=== PATIENT | female | born 1995 | race African-American/Black ===

== ENCOUNTER 2024-08-21 10:17 | Outpatient (CLI) | payer OTHER, SELFPAY ==
--- OUTSIDE RECORDS SUMMARY | 2024-08-21 10:25 | XMS_ITS | Continuity of Care Document ---
Author Organization [facility] Address [address] [place] [address] Assessment Encounter Date Assessment Date Assessment LastModified by Organization Details LastModified Time 08/21/2024 08/21/2024 Patient is _34__weeks . Discussed plan. Not available 08/21/2024 11:05:28 Plan of Treatment Reminders Order Date Submit Date Provider Last Modified By Organization Details Last Modified Time Details Appointments NST 2024 09:00A M NST SCHEDULE Not available Not available Not available OB ROUTINE 2024 09:30A M ALINA NortonM Not available Not available Not available NST 2024 09:30A M NST SCHEDULE Not available Not available Not available OB ROUTINE 2024 10:15A M ALINA NortonM Not available Not available Not available NST 2024 09:00A M NST SCHEDULE Not available Not available Not available OB ROUTINE 2024 09:30A M Raya Sanabria CNM Not available Not available Not available NST 2024 09:00A M NST SCHEDULE Not available Not available Not available OB ROUTINE 2024 09:30A M Raya Sanabria CNM Not available Not available Not available NST 2024 09:30A M NST SCHEDULE Not available Not available Not available OB ROUTINE 2024 10:15A M Raya Sanabria CNM Not available Not available Not available Lab None recorded . Referral None recorded . Procedures None recorded . Surgeries None recorded . Imaging None recorded . Medication Orders None recorded . Patient TargetsNo targets recorded. Patient InstructionsNo instructions recorded. Reason for Referral None Reported. Results Created Date Observation Date Name Description Value Unit Range Abnormal Flag Note LastModifiedBy Organization Detail LastModifiedTime 06/05/19 25 06/04/2024 US, obste tric, follo w-up No observ ation record ed. [email or web address] [address], [place], [address], 06/09/2024 15:00:52 06/05/19 25 06/04/2024 US, obste tric, 2nd or 3rd trime ster No observ ation record ed. [email or web address] [facility] [address], [place], [address], 06/04/2024 15:32:13 06/19/19 25 06/18/2024 US, obste tric, limit ed No observ ation record ed. [email or web address] [facility] [address], [place], [address], 06/18/2024 16:31:33 06/19/19 25 06/18/2024 US, obste tric, limit ed No observ ation record ed. [email or web address] [address], [place], [address], 06/19/2024 16:59:43 07/23/19 25 07/22/2024 US, obste tric, follo w-up No observ ation record ed. [email or web address] [facility] [address] [place], [address], 07/27/2024 22:58:59 07/23/19 25 07/22/2024 US, obste tric, follo w-up No observ ation record ed. [email or web address] [facility] [address] [place], [address], 07/27/2024 23:04:26 08/15/19 25 08/14/2024 non-s tress test No observ ation record ed. [email or web address] [facility] [address], [place], [address], 08/14/2024 19:49:02 08/15/19 25 08/14/2024 non-s tress test No observ ation record ed. [email or web address] [facility] [address], [place], [address], 08/14/2024 19:51:03 Result Notes None recorded. Problems Name Problem SNOMED Code Status Onset Date Resolution Date Notes Provider Name and Address Organization Details Recorded Time Pregnanc y 26396117 Active 2024 Maty carbone, [facility] 5 13:04:05 Deliveri es by 330779241 Active wants tolac, has had successfu l Oleg Magdaleno MD [address], [place], [address], [facility] 5 16:53:21 Vaginal delivery followin g previous section 317994640 Active SECOND - 28 weeks - 2# 10ozc Oleg Magdaleno MD [address], [place], [address], [facility] 5 13:41:19 Prematur e delivery 347794593 Active PLACENTAL ABRUPTION Oleg Magdaleno MD [address], [place], [address], [facility] 5 13:33:04 Pre-ecla mpsia 841213744 Active SEVERE scheduled 07/22 Level II US and consult Wendy carbone, [facility] 5 18:20:28 Placenta l abruptio n 553268711 Active Oleg Magdaleno MD [address], [place], [address], [facility] 5 13:34:13 Bleeding 953109382 Active VAGINAL BLEEDING AT THE TIME OF ABRUTION Oleg Magdaleno MD [address], [place], [address], [facility] 5 13:35:26 Chlamydi al infectio n 573068851 Active Iwona Cobb [facility], [facility] 5 16:05:46 Infectio n by Trichomo melinda 23795575 Active Iwona Cobb [facility], [facility] 5 16:06:25 Placenta l finding 890277532 Active mildy complex focus within Placenta - [facility] referral faxed scheduled 07/22 1:00PM Level II US and consult MFM DID NOT FIND ANY PROBLEM WITH THE PLACENTA. Oleg Magdaleno MD [address], [place], [address], [facility] 5 12:11:40 Anemia 324288713 Active slo fe daily Wendy Green [facility], [facility] 5 11:47:56 Anemia 034700521 Active slo fe daily Wendy Green [facility], [facility] 5 11:47:56 Herpes simplex 19299038 Active 2024 Iwona Cobb [facility], [facility] 5 11:33:31 History of chlamydi al infectio n 955678867 Active 202406/04/2024 chlamydia Iwona Cobb [facility], [facility] 5 11:33:55 Past pregnanc y history of prematur e delivery 082322221 Active 2024 Iwona carbone, [facility] 5 11:37:28 Past pregnanc y history of pre-ecla mpsia 53062743212 9100 Active 2024 Iwona carbone [facility] 5 11:37:41 Problem Notes None recorded. Procedures Surgical History Date Name Laterality Status Provider Name and Address Organization Details Recorded Time 4 Date of Last Pap Smear completed [facility] 06/04/2024 13:08:26 7 Caesarean Section completed [facility] 06/04/2024 13:13:56 Imaging Results None recorded. Procedure Notes None recorded. Medical Equipment None Reported. Allergies No known drug allergies Medications Name Sig Start Date Stop Date Status Note LastModified by Organization Details LastModified Time metronidazo le 500 mg tablet Take 1 tablet every 12 hours by oral route for 7 days. 06/18 completed Not Available Not Available Not Available valacyclovi r 500 mg tablet TAKE 2 TABLETS BY MOUTH EVERY 12 HOURS active Not Available Not Available No t Available promethazin e 25 mg tablet TAKE 1 TABLET BY MOUTH EVERY 4-6 HOURS NEEDED FOR NAUSEA 06/04 completed Not Available Not Available Not Available ibuprofen 600 mg tablet TAKE 1 TABLET BY MOUTH EVERY 6 HOURS NEEDED FOR PAIN 06/04 completed Not Available Not Available Not Available metoclopram marcos 10 mg tablet TAKE 1 TABLET BY MOUTH EVERY 6 HOURS NEEDED FOR NAUSEA OR VOMITING 06/04 completed Not Available Not Available Not Available azithromyci n 500 mg tablet take 2 tablets today 06/18 completed Not Available Not Available Not Available nitrofurant oin monohydrate /macrocryst als 100 mg capsule TAKE 1 CAPSULE BY MOUTH TWICE DAILY FOR 5 DAYS 06/04 completed Not Available Not Available Not Available Vitals Date Recorded Body height Body mass index (BMI) Body weight Systolic blood pressure Diastolic blood pressure Systolic blood pressure Diastolic blood pressure Provider Name and Address Organization Details Last Updated DateTime 5 170.18 cm 24 kg/m2 96602.6 3 g 152 mm[Hg] 107 mm[Hg] 150 mm[Hg] 100 mm[Hg] Iwona Cobb [facility] 10:58:57 Social History Question Answer Notes LastModified by Organizat ion Details LastModified Time Tobacco Smoking Status Current Every Day Smoker Maty Miller raf, [facility] 06/04/2024 13:12:01 If You Are , What Was Your Level Of Alcohol Consumption Prior To ? Occasional [email or web address] Information not available 08/14/2024 Are You Blind Or Do You Have Difficulty Seeing? No Information not available 06/04/2024 What Is Your Level Of Caffeine Consumption? None Information not available 06/04/2024 In The 14 Days Before Symptom Onset, Have You Had Close Contact With A Laboratory-confir med COVID-19 While That Case Was Ill? No Information not available 06/04/2024 In The 14 Days Before Symptom Onset, Have You Had Close Contact With A Person Who Is Under Investigation For COVID-19 While That Person Was Ill? No Information not available 06/04/2024 Have You Been To An Area Known To Be High Risk For COVID-19? No Information not available 06/04/2024 Are You Deaf Or Do You Have Serious Difficulty Hearing? No Information not available 06/04/2024 What Type Of Diet Are You Following? REGULAR Information not available 06/04/2024 What Is The Highest Grade Or Level Of School You Have Completed Or The Highest Degree You Have Received? [id number] Information not available 06/04/2024 Are There Any Guns Present In Your Home? No Information not available 06/04/2024 Do You Use Your Seat Belt Or Car Seat Routinely? Yes Information not available 06/04/2024 Are You Sexually Active? Yes Information not available 06/04/2024 Do You Have Smoke And Carbon Monoxide Detectors In Your Home? Yes Information not available 06/04/2024 Do You Use Sunscreen Routinely? No Information not available 06/04/2024 Do You Have Difficulty Walking Or Climbing Stairs? No Information not available 06/04/2024 Sex: Unknown Functional Status Question Answer Note LastModified by Organizat ion Details LastModified Time Do you use any illicit or recreational drugs? Yes marijuana Information not available 06/04/2024 What is your level of alcohol consumption? None Information not available 06/04/2024 Are you currently employed? Yes Information not available 06/04/2024 Are you able to walk? YESWOREST Information not available 06/04/2024 Are you able to care for yourself? 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 No Information not available 06/04/2024 What is your exercise level? Moderate Information not available 06/04/2024 Mental Status Question Answer Note LastModified by Organization D etails LastModified Time Do you feel stressed (tense, restless, nervous, or anxious, or unable to sleep at night)? [id number] Information not available 06/04/2024 Family History Relationship Description Onset Age of this Age Resolved Age Notes LastModified by Organization Details LastModified Time Father No current problems or disability Not available 06/04 13:11:42 Mother No current problems or disability Not available 06/04 13:11:42 Medical History Condition Response Allergies (Food, seasonal, environmental ) N Other Y Breast Cancer N Drug/Latex Allergies/Reactions N Blood Transfusion N Dermatologic Disorders N Lung Disease N Defects or Inherited Disease N Breast Problem N Gestational Diabetes N Hematologic disorders N Anesthesia Complications N History of STI Y Deep Vein Thrombosis N Polycystic ovary syndrome N Anxiety Disorder N Autoimmune disease N Arthritis N Infertility N Polyps N Acid Reflux (GERD) N History of abnormal pap N Cancer N Stroke N Varicosities N Neurologic/Epilepsy N Endometriosis N High Cholesterol N Headaches N Fibromyalgia N Kidney Disease N Heart Problems N Kidney or Bladder Problems N Thyroid Problems N GI Problems N Eating Disorder N Anemia Y Art (IVF or FET) N Psychiatric Illness N Ovarian Cancer N Diabetes N Pulmonary (TB, Asthma) N Hepatitis/Liver Disease N No Past Medical History N Eczema N Urinary Tract Infection N Abuse/Domestic Violence N Asthma N Trauma/Violence N Depression/ depression N Heart Disease N Pre-Eclampsia Y Hypertension N Osteoporosis N Thrombophilias N Gynecological History Statement/Question Response Abnormal Pap N Date of Last Mammogram Flow Moderate Date of LMP On BCP's at Conception? Y Was last menstrual period normal Y STIs/STDs Yes Duration of Flow (days) 3 Current Control Method Age at First Child 21 Are cycles usually normal Y Date of Last Colonoscopy Frequency of Cycle (Q days) 28 Sexually Active? Y Menses Monthly Y Date of DEXA bone scan Age of first menstrual cycle 17 Date of Last Pap Smear 04/01/2023 Sexual Problems? N LMP Unknown Obstetrics History GPAL:G 3 P 1 1 0 2 Type Value Full Term 1 Premature 1 Living 2 Total 3 Past Encounters Encounter ID Performer Location Encounter Start Date Encounter Closed Date Diagnosis/Indication Diagnosis SNOMED-CT Code Diagnosis ICD10 Code Diagnosis Note [id number] Oleg Magdaleno MD [facility] [address] [address] 07/23/2024 10:56:14 07/23/2024 12:25:22 care status 473982111 Z34.83 [id number] Raya Sanabria [facility] [address] [place] [address] 08/14/2024 11:17:07 08/14/2024 12:36:29 Gestation period, 33 weeks 18098210 Z3A.33 cont pnv Past pregn steve history of pre-eclampsia 9851019014 37895 O09.299 [id number] [facility] [address] [place] [address] 08/14/2024 19:46:30 08/15/2024 11:16:58 Past history of premature delivery 102639488 Z87.51 [id number] Raya Sanabria [facility] [address] [place] [address] 08/21/2024 10:21:56 08/21/2024 11:24:02 Gestation period, 34 weeks 25072407 Z3A.34 Increased blood pressure 06312495 R03.0 Health Concerns Section Related Observation LastModified by Organization Detai ls LastModified Time None Recorded Concern Status LastModified by Organization Details LastModified Time None Recorded Payers Encounter Date Sequence Insurance Name Policy Number Policy Carlson Covered Member ID Carlson Member ID Guarantor Name 08/21/2024 1 [facility] - DOS ON OR AFTER 20 (MEDICAID REPLACEMENT - HMO) Esdras Saucedo [id number] Esdras Saucedo OBGyn Episode Ob Episode Information Episode Created Date Number of Fetuses Patient Bloodtype Patient rh Status Prepregnancy Weight lbs Domestic Partner Domestic Partner Phone Father Name Shower Room Attendant Status 06/05/19 25 1 O Positive Javi OPEN Fetus Data First Name Last Name Admitted to NICU Weight (g) Sex Living Outcome Pediatric Complications Fetus ID Race Codes Race Delivery Type [id number] Problems Problem Notes pt scheduled [facility] 08/25/24 0900 Level II US Problem Name Start Date End Date Resolution Snomed Code Not e Bleeding 982339727 VAGINAL BL EEDING AT THE TIME OF ABRUTION Placental abruption 955238960 Deliveries by 04 wants tolac, has had successful Anemia 854170293 slo fe goran ly Placental finding [phone] mi ldy complex focus within Placenta - [facility] referral faxed scheduled 07/22 1:00PM Level II US and consult MFM DID NOT FIND ANY PROBLEM WITH THE PLACENTA. Pre-eclampsia 983497468 SEVERE scheduled 07/22 Level II US and consult Chlamydial infection 843437279 Infection by Trichomonas [id number] Premature delivery 925696709 P LACENTAL ABRUPTION Vaginal delivery following previous section 088307451 SECOND PREG MANDI - 28 weeks - 2# 10ozc Luis Daniel Calculation Initial Luis Daniel Date Initial Exam Date Initial Exam Provider Initial Ultrasound Date Last Menstrual Period Date Ultra Sound Weeks Gestation 06/04/2024 06/04/2024 23 Eighteen To Twenty Week Luis Daniel Update Ultra Sound Date Fundal Height At Umbil Quickening Date Ultra Sound Latest Weeks Gestation Final Luis Daniel Confirmed By Final Luis Daniel Confirmed Date Final Luis Daniel Date Ultra Sound Latest Days Gestation 06/05/19 25 23 [email or web address] 06/04/2024 10/02/19 25 0 Pre-bryanna Flowsheet Flowsheet Date 06/04/2024 Lorenz Score Blood Edema Fundus Height Fundus Units Glucose Ketones Leukocytes Nitrite Labor Signs Protein Cervic Dilation Cervic Effacement Cervic Station Type Weight in lbs Pre/Post Dialysis Refused BP Diastolic BP Location Tested BP Systolic BP Type Fetus Heart Rate Present Fetus Movement Comments Flowsheet Date 06/04/2024 Lorenz Score Blood Edema Fundus Height Fundus Units Glucose Ketones Leukocytes Nitrite Labor Signs Protein Cervic Dilation Cervic Effacement Cervic Station Type Weight in lbs Pre/Post Dialysis Refused 136.225306129978 BP Diastolic BP Location Tested BP Systolic BP Type 74 L arm 113 sitting Fetus Heart Rate Present Fetus Movement Comments this patient is a 28-year-ol d multiparous female at 23 weeks' gestation who presents for initial care. Her medical, surgical history is unremarkable. she has a complex obstetric history with delivery associated with preeclampsia and abruption . she has history of delivery. She is vaccinated. She was given precautions recommendations for . We talked about vaccines in . Talked about care in detail. She is having genetic testing. To begin routine care. Flowsheet Date 06/18/2024 Lorenz Score Blood Edema Fundus Height Fundus Units Glucose Ketones Leukocytes Nitrite Labor Signs Protein Cervic Dilation Cervic Effacement Cervic Station Type Weight in lbs Pre/Post Dialysis Refused BP Diastolic BP Location Tested BP Systolic BP Type Fetus Heart Rate Present Fetus Movement Comments Flowsheet Date 06/18/2024 Lorenz Score Blood Edema Fundus Height Fundus Units Glucose Ketones Leukocytes Nitrite Labor Signs Protein Cervic Dilation Cervic Effacement Cervic Station Type Weight in lbs Pre/Post Dialysis Refused 133.191676152198 BP Diastolic BP Location Tested BP Systolic BP Type 78 L arm 112 sitting Fetus Heart Rate Present A 145 Fetus Movement A Yes Comments no complaints, no problems, routine care, no contractions, no vaginal bleeding, no loss of fluid, no cramping Flowsheet Date 07/09/2024 Lorenz Score Blood Edema Fundus Height Fundus Units Glucose Ketones Leukocytes Nitrite Labor Signs Protein Cervic Dilation Cervic Effacement Cervic Station Type Weight in lbs Pre/Post Dialysis Refused 138.711781453552 BP Diastolic BP Location Tested BP Systolic BP Type 71 L arm 109 sitting Fetus Heart Rate Present A 150 Present Fetus Movement A Yes Comments no complaints, no problems, routine care, no contractions, no vaginal bleeding, no loss of fluid, no cramping Flowsheet Date 07/23/2024 Lorenz Score Blood Edema Fundus Height Fundus Units Glucose Ketones Leukocytes Nitrite Labor Signs Protein Cervic Dilation Cervic Effacement Cervic Station Type Weight in lbs Pre/Post Dialysis Refused 143.224614859513 BP Diastolic BP Location Tested BP Systolic BP Type 77 L arm 116 sitting Fetus Heart Rate Present A 145 Present Fetus Movement A Yes Comments no complaints, no problems, routine care, no contractions, no vaginal bleeding, no loss of fluid, no cramping MFM DID NOT FIND PROBLEMS WITH THE PLACENTA, NORMAL GROWTH Flowsheet Date 08/14/2024 Lorenz Score Blood Edema Fundus Height Fundus Units Glucose Ketones Leukocytes Nitrite Labor Signs Protein Cervic Dilation Cervic Effacement Cervic Station neg none Type Weight in lbs Pre/Post Dialysis Refused Weight 147.320020201061 BP Diastolic BP Location Tested BP Systolic BP Type 85 129 Fetus Heart Rate Present Fetus Movement A Yes Comments Patient is having some pain, discharge, nausea and vomiting. testing today NST R, +FM doing well, no complaints, call for preadmission. f/u one week. precautions reviewed Flowsheet Date 08/14/2024 Lorenz Score Blood Edema Fundus Height Fundus Units Glucose Ketones Leukocytes Nitrite Labor Signs Protein Cervic Dilation Cervic Effacement Cervic Station Type Weight in lbs Pre/Post Dialysis Refused Weight 147.278631126763 BP Diastolic BP Location Tested BP Systolic BP Type 85 129 Fetus Heart Rate Present Fetus Movement Comments Flowsheet Date 08/21/2024 Lorenz Score Blood Edema Fundus Height Fundus Units Glucose Ketones Leukocytes Nitrite Labor Signs Protein Cervic Dilation Cervic Effacement Cervic Station Type Weight in lbs Pre/Post Dialysis Refused BP Diastolic BP Location Tested BP Systolic BP Type Fetus Heart Rate Present Fetus Movement Comments Flowsheet Date 08/21/2024 Lorenz Score Blood Edema Fundus Height Fundus Units Glucose Ketones Leukocytes Nitrite Labor Signs Protein Cervic Dilation Cervic Effacement Cervic Station neg none Type Weight in lbs Pre/Post Dialysis Refused Weight 153.391540990621 BP Diastolic BP Location Tested BP Systolic BP Type 107 152 100 150 Fetus Heart Rate Present Fetus Movement A Yes Comments Patient is having some disch arge, nausea and vomiting. denies conley, visual changes, epigastric pain, plan evaluation at ld, NST R Menstrual History Last Menstrual Date Menses Monthly On Bcp Conception Prior Menses Frequency Hcg Plus Date Menarche Onset Age true Delivery Information Delivery Date Delivery Type Labor Anesthesia Weeks Gestation Incision Type Labor Labor Length Hrs Delivered By Post Complications Tubal Sterilization Discharge Date Comments Discharge Information Feeding Method Contraceptive Method Maternal HG B and HCT Levels
--- OUTSIDE RECORDS SUMMARY | 2024-08-21 10:26 | XMS_ITS | Data Portability ---
Author Organization [facility] MELIT[facility] Address [address] [place] [address] Care Team Providers Care Laundry Press Operator Name Role Phone KRISTY MUNGUIA Glass Designer Unavailable Assessment Encounter Date Assessment Date Assessment LastModified by Organization Details LastModified Time 05/10/2022 05/10/2022 26 yo @ 29+1 wks by LMP = 8wk US here for JOSE L. (LUIS DANIEL 07/25/2022) mmetias Not available 05/10/2022 11:24:34 Plan of Treatment Reminders Order Date Submit Date Provider Last Modified By Organization Details Last Modified Time Details Appointments None record ed. Lab pregna ncy test, urine 2024 025 [email or web address] In-Office Order, Internal Use Only DO Not Attach Compendium DO Not Attach Compendium, Do Not Delete/merge, [id number] 5 16:31:26 HCG, intact + beta subuni t, quant, serum or plasma 2024 025 [email or web address] [facility], [address] [place] [address], [address], [place], [address], 17:30:29 pregna ncy test, urine 2022 023 [email or web address] In-Office Order, Internal Use Only DO Not Attach Compendium DO Not Attach Compendium, Do Not Delete/merge, [id number] 3 08:47:22 CMP, serum or plasma 2022 023 [facility], [address] [place] [address] [address], [address], [place], [address], 3 10:55:46 lactat e dehydr ogenas e, QN, lactat e to pyruva te reacti on, serum or plasma 2022 023 [facility], [address], [address], [place], [address], 3 10:55:46 uric acid, serum or plasma 2022 023 [facility], [address], [address], [place], [address], 3 10:55:46 CBC w/ auto diff 2022 023 [email or web address] [facility], [address] [facility] [address], [address], [place], [address], 3 10:17:21 protei n + creati nine panel, urine 2022 023 [facility], [address], [address], [place], [address], 3 10:55:45 PT/PTT , plasma 2022 023 [facility], [address], [address], [place], [address], 3 11:01:10 pregna ncy test, urine 2022 023 [facility] In-Office Order, Internal Use Only DO Not Attach Compendium DO Not Attach Compendium, Do Not Delete/merge, [id number] 3 10:01:57 urinal ysis, dipsti ck 2022 023 [email or web address] In-Office Order, Internal Use Only DO Not Attach Compendium DO Not Attach Compendium, Do Not Delete/merge, [id number] 3 10:30:15 HIV 1 + 2, meanin gful use set 2022 023 [facility], [address] [facility], [address], [place], [address], 3 09:15:18 RPR (rapid plasma reagin ), serum 2022 023 [facility], [address] [facility], [address], [place], [address], 3 09:15:17 CBC w/ auto diff 2022 023 [facility], [address] [place] [address], [address], [place], [address], 3 20:08:38 glucos e tolera nce test, post-5 0G, 1-hour 2022 023 [facility], [address] [place], [place] [address]stacy [address], [address], [place], [address], 3 09:15:16 Referral matern al & medici ne referr al - Total Transf er of care, Histor y of Pre-C and C-sect ion at 31 weeks in G1, Desire s TOLAC 2022 023 [facility], [address], [address], [place], [address], 3 11:53:25 Procedures None record ed. Surgeries None record ed. Imaging None record ed. Medication Orders medrox yproge steron e 150 mg/mL intram uscula r suspen kalpesh 2022 023 [id number], [address] [place], [place], [id number], 5 15:58:23 nifedi pine ER 30 mg tablet ,exten ded releas e 2022 023 [facility], [address] [place] [address], [id number], 3 11:00:47 medrox yproge steron e 150 mg/mL intram uscula r suspen kalpesh 2022 023 [email or web address], [address] [place] [address], [id number], 5 15:58:23 Adult Low Dose Aspiri n 81 mg tablet ,delay ed releas e 2022 023 [id number], [address] [place], [place], [id number], 3 10:13:55 Patient TargetsNo targets recorded. Patient Instructions Encounter Date Encounter Id Patient Instructions Last Modified By Organization Details Last Modified Time 10/08/2022 [id number] Attending Physician Attestation I personally saw and examined the patient with the resident. I have reviewed the documentation and agree with the history, physical findings, work-up, and medical decision making as recorded. Griselda Pillai MD mmetias Not available 10/08/2022 14:56:21 05/18/2024 [id number] Attending Physician Attestation S: 28 yo here for a check up. Unsure LMP. Last sexual activity in January. O: BP 128/72. BMI 21. +UPT A/P: Missed menses - Discussed options. Recommend ordering dating US. Recommend PNV until patient makes a decision. {{I did not personally see or examine the patient with the resident. I was physically present to provide indirect supervision through entire encounter.* I personally saw the patient with the resident.}} Plan discussed with resident as documented in my brief note above. Kristy Munguia MD [email or web address] Not available 05/30/2024 19:50:45 Reason for Referral Maternal & Medicine Re main campus medical center for Supervision of high risk with history of previous section done Total Transfer of care, History of Pre-C and at 31 weeks in G1, Desires TOLAC Referring Physician: Griselda Pillai, Family Medicine, Encounter Date: 05/10/2022 Results Created Date Observation Date Name Description Value Unit Range Abnormal Flag Note LastModifiedBy Organization Detail LastModifiedTime 03/15/20 22 03/15/2022 urina lysis , dipst ick Leukocytes Modera te Not Available In-Office Order Internal Use Only DO Not Attach Compendium DO Not Attach Compendium, Do Not Delete/merge, [id number] 03/15/2022 10:18:29 03/15/20 22 03/15/2022 urina lysis , dipst ick Nitrite negati ve Not Available In-Office Order Internal Use Only DO Not Attach Compendium DO Not Attach Compendium, Do Not Delete/merge, [id number] 03/15/2022 10:18:29 03/15/20 22 03/15/2022 urina lysis , dipst ick Urobilinogen 1 Not Available In-Of fice Order Internal Use Only DO Not Attach Compendium DO Not Attach Compendium, Do Not Delete/merge, [id number] 03/15/2022 10:18:29 03/15/20 22 03/15/2022 urina lysis , dipst ick Protein 30 Not Available In-Office Order Internal Use Only DO Not Attach Compendium DO Not Attach Compendium, Do Not Delete/merge, [id number] 03/15/2022 10:18:29 03/15/20 22 03/15/2022 urina lysis , dipst ick pH 6.5 Not Available In-Office Order Internal Use Only DO Not Attach Compendium DO Not Attach Compendium, Do Not Delete/merge, [id number] 03/15/2022 10:18:29 03/15/20 22 03/15/2022 urina lysis , dipst ick Blood Negati ve Not Available In-Office Order Internal Use Only DO Not Attach Compendium DO Not Attach Compendium, Do Not Delete/merge, [id number] 03/15/2022 10:18:29 03/15/20 22 03/15/2022 urina lysis , dipst ick Specific [place] 1.030 Not Available In-Off ice Order Internal Use Only DO Not Attach Compendium DO Not Attach Compendium, Do Not Delete/merge, [id number] 03/15/2022 10:18:29 03/15/20 22 03/15/2022 urina lysis , dipst ick Ketone Negati ve Not Available In-Office Order Internal Use Only DO Not Attach Compendium DO Not Attach Compendium, Do Not Delete/merge, [id number] 03/15/2022 10:18:29 03/15/20 22 03/15/2022 urina lysis , dipst ick Bilirubin Negati ve Not Available In-Office Order Internal Use Only DO Not Attach Compendium DO Not Attach Compendium, Do Not Delete/merge, [id number] 03/15/2022 10:18:29 03/15/20 22 03/15/2022 urina lysis , dipst ick Glucose Negati ve Not Available In-Office Order Internal Use Only DO Not Attach Compendium DO Not Attach Compendium, Do Not Delete/merge, [id number] 03/15/2022 10:18:29 04/04/19 23 04/04/2022 AFP, SERUM , OPEN SPINA BIFID A comment: Lisette brody , Ph.D. , [facility] tor Refer ences : Avail able Upon Reque st. Multi ples Of Media n Cutof fs For AFP [place] tions Singl eton 2.5 Black 2.8 IDD 2.0 Twins 4.5 Abbre viati on Defin ition s IDD - Insul in Dep Diabe juliano OSBR - Open Spina Bifid a Risk For furth er inqui yonatan conta ct [facility] Onelia ics Servi derian at [phone]. This test was devel oped and its perfo rmanc e caroline cteri stics deter mined by [facility]. It has not been clear ed or appro arya by the Food and Drug Admin istra tion. Not Available [facility] ([facility]) [address] [facility], [place], [address], 04/06/2022 03:07:50 04/04/19 23 04/05/2022 AFP, SERUM , OPEN SPINA BIFID A results Report Not Available [facility] ([facility]) [address] [place], [address], 04/06/2022 03:07:50 04/04/19 23 04/05/2022 AFP, SERUM , OPEN SPINA BIFID A test results: *Scree n Negati ve* Not Available [facility] ([facility]) [address] [facility], [place], [address], 04/06/2022 03:07:50 04/04/1904/05/2022 AFP, SERUM , OPEN SPINA BIFID A gest. age on collection date 23.9 weeks Not Available [facility] ([facility]) [address] [place], [address], 04/06/2022 03:07:50 04/04/1904/05/2022 AFP, SERUM , OPEN SPINA BIFID A gestat. age based on LUIS DANIEL 07/26 Recal culat ions are not recom reid d when gesta israel l datin g by LMP and ultra sound are withi n 10 days. Not Available [facility] ([facility]) [address] [place], [address], 04/06/2022 03:07:50 04/04/1904/05/2022 AFP, SERUM , OPEN SPINA BIFID A [age] Not Available [facility] ([facility]) [address] [place], [address], 04/06/2022 03:07:50 04/04/1904/05/2022 AFP, SERUM , OPEN SPINA BIFID A race Black Not Available [facility] ([facility]) [address] [place], [address], 04/06/2022 03:07:50 04/04/1904/05/2022 AFP, SERUM , OPEN SPINA BIFID A weight 126 lbs Not Available [facility] ([facility]) [address] [place], [address], 04/06/2022 03:07:50 04/04/1904/05/2022 AFP, SERUM , OPEN SPINA BIFID A insulin dep diabetes No Not Available [facility] ([facility]) [address] [place], [address], 04/06/2022 03:07:50 04/04/1904/05/2022 AFP, SERUM , OPEN SPINA BIFID A multiple gestation No Not Available [facility] ([facility]) [address] [place], [address], 04/06/2022 03:07:50 04/04/1904/05/2022 AFP, SERUM , OPEN SPINA BIFID A AFP value 103.0 NG/mL Not Available [facility] ([facility]) [address] [place], [address], 04/06/2022 03:07:50 04/04/1904/05/2022 AFP, SERUM , OPEN SPINA BIFID A AFP MOM 0.85 Not Available [facility] ([facility]) [address] [place], [address], 04/06/2022 03:07:50 04/04/1904/05/2022 AFP, SERUM , OPEN SPINA BIFID A OSBR risk 1 in [address] Not Available [facility] ([facility]) [address] [place], [address], 04/06/2022 03:07:50 04/04/1904/05/2022 AFP, SERUM , OPEN SPINA BIFID A interpretati on Commen t Inter preta tion: Scree n Negat juan manuel This resul t is scree n negat juan manuel for OSB. The AFP MoM calcu lated is based on the gesta israel l age provi ded. MS-AF P can ident sharif up to 80% of open neura l tube defec ts. Close d neura l tube defec ts and some open defec ts may not be detec javy by this test. This test does not scree n for Down Syndr ome or Triso my 18. If scree sy for Down Syndr ome or Triso my 18 is yue ed, conta ct Onelia ic Custo thor Servi derian to discu ss avail able optio ns. The Shelbie can Colle ge of Obste trici ans and Gynec ologi sts recom mends amnio cente sis be offer ed to women age 35 and older . Not Available [facility] ([facility]) [address] [facility], [place], [address], 04/06/2022 03:07:50 04/04/19 23 04/06/2022 AFP, SERUM , OPEN SPINA BIFID A pdf . Not Available [facility] ([facility]) [address] [facility], [place], [address], 04/06/2022 03:07:50 05/10/19 23 05/10/2022 CBC WITH DIFFE RENTI AL/PL ATELE T WBC 7.3 K/uL 3.4-[address] [facility] [address] [place], [address], 05/10/2022 20:08:38 05/10/19 23 05/10/2022 CBC WITH DIFFE RENTI AL/PL ATELE T RBC 3.9 M/uL 4.2-5. 4 below low normal Not Available [facility] [address] [place], [address], 05/10/2022 20:08:38 05/10/19 23 05/10/2022 CBC WITH DIFFE RENTI AL/PL ATELE T hemoglobin 10.8 g/dL 11.5-1 5.5 below low normal Not Available [facility] [address] [place], [address], 05/10/2022 20:08:38 05/10/19 23 05/10/2022 CBC WITH DIFFE RENTI AL/PL ATELE T hematocrit 34.1 % 36.0-4 8.0 below low normal Not Available [facility] [address] [place], [address], 05/10/2022 20:08:38 05/10/19 23 05/10/2022 CBC WITH DIFFE RENTI AL/PL ATELE T MCV 89 fL 80-[address] [facility] [address] [place], [address], 05/10/2022 20:08:38 05/10/19 23 05/10/2022 CBC WITH DIFFE RENTI AL/PL ATELE T MCH 28 pg 27-[address] [facility] [address] [place], [address], 05/10/2022 20:08:38 05/10/19 23 05/10/2022 CBC WITH DIFFE RENTI AL/PL ATELE T MCHC 32 g/dL 32-[address] [facility] [address] [place], [address], 05/10/2022 20:08:38 05/10/19 23 05/10/2022 CBC WITH DIFFE RENTI AL/PL ATELE T RDW 14.1 % 11.5-[address] [facility] [address] [place], [address], 05/10/2022 20:08:38 05/10/19 23 05/10/2022 CBC WITH DIFFE RENTI AL/PL ATELE T platelets 189 K/uL 155-37 9 MPV 12.1 FL 8.9-[address] [facility] [address] [place], [address], 05/10/2022 20:08:38 05/10/19 23 05/10/2022 CBC WITH DIFFE RENTI AL/PL ATELE T neutrophils 65.1 % 40.0-[address] [facility] [address] [place], [address], 05/10/2022 20:08:38 05/10/19 23 05/10/2022 CBC WITH DIFFE RENTI AL/PL ATELE T lymphs 25.5 % 14.0-[address] [facility] [address] [place], [address], 05/10/2022 20:08:38 05/10/19 23 05/10/2022 CBC WITH DIFFE RENTI AL/PL ATELE T monocytes 3.7 % 4.0-12 .0 below low normal Not Available [facility] [address] [place], [address], 05/10/2022 20:08:38 05/10/19 23 05/10/2022 CBC WITH DIFFE RENTI AL/PL ATELE T eos 4 % 0-[address] [facility] [address] [place], [address], 05/10/2022 20:08:38 05/10/19 23 05/10/2022 CBC WITH DIFFE RENTI AL/PL ATELE T basos 0.6 % 0.0-1. [address] [facility] [address] [place], [address], 05/10/2022 20:08:38 05/10/19 23 05/10/2022 CBC WITH DIFFE RENTI AL/PL ATELE T neutrophils (absolute) 4.7 K/uL 1.4-7. [address] [facility] [address] [place], [address], 05/10/2022 20:08:38 05/10/19 23 05/10/2022 CBC WITH DIFFE RENTI AL/PL ATELE T lymphs (absolute) 1.9 K/uL 0.7-3. [address] [facility] [address] [place], [address], 05/10/2022 20:08:38 05/10/19 23 05/10/2022 CBC WITH DIFFE RENTI AL/PL ATELE T monocytes(ab solute) 0.3 K/uL 0.1-0. [address] [facility] [address] [place], [address], 05/10/2022 20:08:38 05/10/19 23 05/10/2022 CBC WITH DIFFE RENTI AL/PL ATELE T eos (absolute) 0.3 K/uL 0.0-0. [address] [facility] [address] [place], [address], 05/10/2022 20:08:38 05/10/19 23 05/10/2022 CBC WITH DIFFE RENTI AL/PL ATELE T baso (absolute) 0.0 K/uL 0.0-0. [address] [facility] [address] [place], [address], 05/10/2022 20:08:38 05/10/19 23 05/10/2022 CBC WITH DIFFE RENTI AL/PL ATELE T immature granulocytes 1.5 % Not Available [facility] [address] [place], [address], 05/10/2022 20:08:38 05/10/19 23 05/10/2022 CBC WITH DIFFE RENTI AL/PL ATELE T immature grans (abs) 0.1 K/uL Not Available [facility] [address] [place], [address], 05/10/2022 20:08:38 05/10/19 23 05/10/2022 CBC WITH DIFFE RENTI AL/PL ATELE T NRBC 0 % Not Available [facility] [address] [place], [address], 05/10/2022 20:08:38 05/10/19 23 05/11/2022 GEST. DIABE JULIANO 1-HR SCREE N gestational diabetes screen 103 mg/dL 70-139 Accor ding to ADA, a gluco se thres hold of >139 mg/dL after 50-gr am load ident ifies appro ximat gladis 80% of women with gesta israel l diabe juliano melli tus, while the sensi tivit y is furth er incre ased to appro ximat gladis 90% by a thres hold of >129 mg/dL . Not Available [facility] ([facility]) [address] [facility], [place], [address], 05/11/2022 09:15:16 05/10/19 23 05/11/2022 RPR, RFX QN RPR/C ONFIR M TP RPR Non Reacti ve nonrea ctive Not Available [facility] ([facility]) [address] [facility], [place], [address], 05/11/2022 09:15:17 05/10/19 23 05/11/2022 HIV AB/P2 4 AG WITH REFLE X HIV Ab/P24 Ag screen Non Reacti ve nonrea ctive HIV Negat juan manuel HIV-1 /HIV- 2 antib odies and HIV-1 p24 antig en were NOT detec javy. There is no labor atory evide nce of HIV infec tion. Not Available [facility] ([facility]) [address] [facility], [place], [address], 05/11/2022 09:15:18 05/10/19 23 05/10/2022 urina lysis , dipst ick Leukocytes Small Not Available In-Offi ce Order Internal Use Only DO Not Attach Compendium DO Not Attach Compendium, Do Not Delete/merge, [id number] 05/10/2022 10:22:47 05/10/19 23 05/10/2022 urina lysis , dipst ick Nitrite negati ve Not Available In-Office Order Internal Use Only DO Not Attach Compendium DO Not Attach Compendium, Do Not Delete/merge, 05/10/2022 10:22:47 05/10/19 23 05/10/2022 urina lysis , dipst ick Urobilinogen .2 Not Available In-Of fice Order Internal Use Only DO Not Attach Compendium DO Not Attach Compendium, Do Not Delete/merge, 05/10/2022 10:22:47 05/10/19 23 05/10/2022 urina lysis , dipst ick Protein Negati ve Not Available In-Office Order Internal Use Only DO Not Attach Compendium DO Not Attach Compendium, Do Not Delete/merge, 05/10/2022 10:22:47 05/10/19 23 05/10/2022 urina lysis , dipst ick pH 7.5 Not Available In-Office Order Internal Use Only DO Not Attach Compendium DO Not Attach Compendium, Do Not Delete/merge, 05/10/2022 10:22:47 05/10/19 23 05/10/2022 urina lysis , dipst ick Blood Negati ve Not Available In-Office Order Internal Use Only DO Not Attach Compendium DO Not Attach Compendium, Do Not Delete/merge, 05/10/2022 10:22:47 05/10/19 23 05/10/2022 urina lysis , dipst ick Specific [place] 1.020 Not Available In-Off ice Order Internal Use Only DO Not Attach Compendium DO Not Attach Compendium, Do Not Delete/merge, 05/10/2022 10:22:47 05/10/19 23 05/10/2022 urina lysis , dipst ick Ketone Negati ve Not Available In-Office Order Internal Use Only DO Not Attach Compendium DO Not Attach Compendium, Do Not Delete/merge, 05/10/2022 10:22:47 05/10/19 23 05/10/2022 urina lysis , dipst ick Bilirubin Negati ve Not Available In-Office Order Internal Use Only DO Not Attach Compendium DO Not Attach Compendium, Do Not Delete/merge, 05/10/2022 10:22:47 02/0905/10/2022 urina lysis , dipst ick Glucose Negati ve Not Available In-Office Order Internal Use Only DO Not Attach Compendium DO Not Attach Compendium, Do Not Delete/merge, [id number] 05/10/2022 10:22:47 05/21/1905/21/2022 Urina lysis dipst ick panel - Urine by Autom ated test strip color of urine Yellow text: straw, yellow , dark yellow , light yellow Color UA POCT Yello w Straw , Yello w, Dark Yello w, Light Yello w 05/21 11:19 AM [facility] Not Available Not Available 05/18/2024 03:58:55 05/21/1905/21/2022 Urina lysis dipst ick panel - Urine by Autom ated test strip clarity of urine Clear text: clear Sara ty UA POCT Clear Clear 05/21 11:19 AM [facility] Not Available Not Available 05/18/2024 03:58:55 05/21/1905/21/2022 Urina lysis dipst ick panel - Urine by Autom ated test strip urinalysis dipstick panel - urine by automated test strip 1.02 low: 1.005h igh: 1.03 Speci fic Gravi ty UA POCT 1.020 1.005 - 1.030 05/21 11:19 AM [employer] [facility] Not Available Not Available 05/18/2024 03:58:55 05/21/1905/21/2022 Urina lysis dipst ick panel - Urine by Autom ated test strip pH of urine by test strip 7 pH low: 5pHhig h: 8pH pH UA POCT 7.0 5.0 - 8.0 pH 05/21 11:19 AM [employer] [employer] [facility] Not Available Not Available 05/18/2024 03:58:55 05/21/19 23 05/21/2022 Urina lysis dipst ick panel - Urine by Autom ated test strip protein [presence] in urine by test strip Negati ve text: negati ve Prote in UA POCT Negat juan manuel Negat juan manuel 05/21 11:19 AM [employer] [facility] Not Available Not Available 05/18/2024 03:58:55 05/21/19 23 05/21/2022 Urina lysis dipst ick panel - Urine by Autom ated test strip hemoglobin [presence] in urine by test strip Negati ve text: negati ve Blood UA POCT Negat juan manuel Negat juan manuel 05/21 11:19 AM [employer] [employer] [facility] Not Available Not Available 05/18/2024 03:58:55 05/21/19 23 05/21/2022 Urina lysis dipst ick panel - Urine by Autom ated test strip leukocyte esterase [presence] in urine by test strip 2+ text: negati ve abnormal Leuko cyte UA POCT 2+ (A) Negat juan manuel 05/21 11:19 AM [employer] Not Available Not Available 05/18/2024 03:58:55 05/21/19 23 05/21/2022 Urina lysis dipst ick panel - Urine by Autom ated test strip nitrite [presence] in urine by test strip Negati ve text: negati ve Nitri te UA POCT Negat juan manuel Negat juan manuel 05/21 11:19 AM [facility] Not Available Not Available 05/18/2024 03:58:55 05/21/19 23 05/21/2022 Urina lysis dipst ick panel - Urine by Autom ated test strip glucose [presence] in urine by test strip Negati ve text: negati ve Gluco se UA POCT Negat juan manuel Negat juan manuel 05/21 11:19 AM [employer] [employer] [facility] Not Available Not Available 05/18/2024 03:58:55 05/21/19 23 05/21/2022 Urina lysis dipst ick panel - Urine by Autom ated test strip ketones [presence] in urine by test strip 2+ text: negati ve abnormal Keton e UA POCT 2+ (A) Negat juan manuel 05/21 11:19 AM [employer] [facility] Not Available Not Available 05/18/2024 03:58:55 05/21/19 23 05/21/2022 Urina lysis dipst ick panel - Urine by Autom ated test strip bilirubin.to harsha [presence] in urine by test strip Negati ve text: negati ve Bilir ubin UA POCT Negat juan manuel Negat juan manuel 05/21 11:19 AM [employer] Not Available Not Available 05/18/2024 03:58:55 05/21/19 23 05/21/2022 Urina lysis dipst ick panel - Urine by Autom ated test strip urobilinogen [units/volum e] in urine by test strip 0.2 eu/dL low: 0.1eu/ dLhigh : 1eu/dL Urobi linog en UA POCT 0.2 0.1 - 1.0 EU/dL 05/21 11:19 AM [employer] Not Available Not Available 05/18/2024 03:58:55 05/21/1905/21/2022 Urina lysis dipst ick panel - Urine by Autom ated test strip interpretati on and review of laboratory results Abnorm al Not Available Not Available 03:58:55 10/10/1910/09/2022 pregn steve test, urine HCG negati ve Not Available In-Office Order Internal Use Only DO Not Attach Compendium DO Not Attach Compendium, Do Not Delete/merge, [id number] 10/09/2022 12:06:49 10/10/19 23 10/09/2022 pregn steve test, urine HCG negati ve Not Available In-Office Order Internal Use Only DO Not Attach Compendium DO Not Attach Compendium, Do Not Delete/merge, [id number] 10/08/2022 10:49:23 05/18/1905/19/2024 HCG,B ETA SUBUN IT, QNT HCG,beta subunit,qnt, serum 40759 mIU/m L Femal e (Non- pregn ant) 0 - 5 (Post menop ausal ) 0 - 8 Femal e (Preg nant) Weeks of Gesta tion 3 6 - 71 4 10 - 750 5 442 - 0528 6 900 - 27119 7 5537 -0613 63 8 07048 -1481 71 9 03088 -2242 10 10 05570 -0798 77 12 80215 -3621 12 14 40677 - 94755 15 03754 - 82461 16 3269 - 39193 17 6443 - 75406 18 3794 - 30791 Resul ts confi rmed on dilut ion. Hui ECLIA metho dolog y Not Available [facility] ([facility]) [address] [facility], [place], [address], 05/19/2024 08:25:09 05/18/19 25 05/18/2024 pregn steve test, urine HCG positi ve Not Available In-Office Order Internal Use Only DO Not Attach Compendium DO Not Attach Compendium, Do Not Delete/merge, [id number] 05/18/2024 16:09:33 04/13/19 23 04/11/2022 US, obste tric, mater nal evalu ation + anato my No observ ation record ed. [facility] [address] [place] [address], [address], 06/08/2022 18:07:06 05/21/19 23 05/21/2022 US, obste tric, mater nal evalu ation + anato my No observ ation record ed. [facility] [address] [address], [place], [address], 06/08/2022 18:04:12 Result Notes None recorded. Problems Name Problem SNOMED Code Status Onset Date Resolution Date Notes Provider Name and Address Organization Details Recorded Time Pregnanc y 61009851 Completed 202110/08/2022 DEN [place], [place] - [facility] 3 10:13:26 Trichomo nal vaginiti s in pregnanc y 064564503 Active 2021 pos at initial OB visit, Neg PASQUALE @ 15+1 wks [place] [facility] 3 10:13:22 Trichomo nal vaginiti s in pregnanc y 253917272 Completed 2021 pos at initial OB visit, Neg PASQUALE @ 15+1 wks DEN [place] [facility] 3 10:13:22 Past pregnanc y history of pre-ecla mpsia [id number] 9100 Completed G1, on 162 mg ASA, followin g with [facility] Veronica Cleopatra [place] [facility] 3 10:13:22 Past pregnanc y history of section [id number] Completed Desires TOLAC, will transfer care to [facility] in [place] Veronica DEN [place] [facility] 3 10:13:22 Past pregnanc y history of prematur e delivery 290538759 Completed at 31 weeks due to severe pre-E Veronica [place] [facility] 3 10:13:22 Anemia of pregnanc y 06681568 Completed 2022 Veronica [place] [facility] [place] 10:13:22 Anemia of pregnanc y 34864743 Active 2022 Veronica [place] [facility] [place] 10:13:22 Past pregnanc y history of pre-ecla mpsia 94770653240 9100 Active 2022 Mauro Herrera MD Attn: Accounting ,[address] [place], [address] , [place] [facility] 3 10:59:51 Postpart um pregnanc y-induce d hyperten kalpesh 00284697402 100 Active 2022 Mauro Herrera MD Attn: Accounting ,[address] [place], [address] , [place] [facility] 3 11:20:28 Initiati on of depot contrace ption done 83376337191 9108 Active 2022 Mauro Herrera MD Attn: Accounting ,[address] [place], [address] , [place] [facility] 3 11:20:32 Postpart um care Active 2022 Mauro Herrera MD Attn: Accounting ,[address] [place], [address] , [place] [facility] 11:20:35 Upper respirat ory infectio n 01689163 Active Jemma Lance [facility] Attn: Accounting ,[address] [facility], [place], [address] , [place] [facility] 6 15:02:43 Acne 97516788 Active Jemma Lance [facility] Attn: Accounting ,[address] [facility], [place], [address] , [place] [facility] 6 15:02:43 Herpes simplex 02954202 Active Jemma Lance [facility] Attn: Accounting ,[address] [facility], [place], [address] , [place] [facility] 6 15:02:43 Pregnanc y 38426552 Completed 201601/14/2017 Veronica [place] [facility] 3 10:13:26 Substanc e abuse 15724037 Completed [place] [facility] 7 10:46:22 Unplanne d pregnanc y 78346389 Completed [place] [facility] [place] 10:46:22 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 Procedures Surgical History Date Name Laterality Status Provider Name and Address Organization Details Recorded Time 2 Date of Last Pap Smear completed DEN Deleon - [place] 12/14/2021 15:11:53 1 termination of completed Geena Rai MA [facility] 12/14/2021 15:17:42 0 termination of completed Geena Rai MA [facility] 12/14/2021 15:17:32 7 Caesarean Section completed Geena Rai [place] - [facility] 12/14/2021 15:17:21 7 Control Implant Removal completed AIDEN Zee Attn: Accounting,[address] [facility], [place], [address], [place] - [facility] 04/23/2016 17:18:04 Imaging Results Imaging Date Name Status LastModified by Organiz ation Details LastModified Time 04/11/2022 US, obstetric, maternal evaluation + anatomy completed [facility] [address] [place] [address], [address], 06/08/2022 18:07:06 05/21/2022 US, obstetric, maternal evaluation + anatomy completed [facility] [address] [address], [place], [address], 06/08/2022 18:04:12 Procedure Notes None recorded. Medical Equipment None Reported. Allergies No known drug allergies Medications Name Sig Start Date Stop Date Status Note LastModified by Organization Details LastModified Time nifedipine ER 30 mg tablet,exte nded release 24 hr TAKE ONE TABLET BY MOUTH EVERY DAY active Not Available Not Available No t Available polyethylen e glycol 3350 17 gram oral powder packet 12/14 completed Not Available Not Available Not Available azithromyci n 250 mg tablet 12/14 completed Not Available Not Available Not Available nicotine (polacrilex ) 2 mg gum CHEW 1 PIECE OF GUM EVERY 2 HOURS NEEDED 12/14 completed Not Available Not Available Not Available ondansetron HCl 4 mg tablet TAKE 1 TABLET BY MOUTH EVERY 8 HOURS 12/14 completed Not Available Not Available Not Available benzoyl peroxide 5 % topical gel APPLY TO THE AFFECTED AREA(S) BY TOPICAL ROUTE ONCE DAILY 12/14 completed Not Available Not Available Not Available penicillin V potassium 500 mg tablet 12/14 completed Not Available Not Available Not Available metronidazo le 500 mg tablet TAKE 1 TABLET BY MOUTH TWICE DAILY FOR 7 DAYS 05/10 completed Not Available Not Available Not Available nifedipine ER 30 mg tablet,exte nded release Take 1 tablet every day by oral route for 30 days. 2022 active Not Available Not Available Not Avai lable acetaminoph en 300 mg-codeine 30 mg tablet 12/14 completed Not Available Not Available Not Available acyclovir 400 mg tablet Take 1 tablet twice a day by oral route with meals for 30 days. 12/14 completed Not Available Not Available Not Available valacyclovi r 500 mg tablet TAKE 2 TABLETS BY MOUTH EVERY 12 HOURS active Not Available Not Available No t Available aspirin 81 mg tablet,thelma yed release TAKE 2 TABLETS BY MOUTH EVERY DAY 10/08 completed Not Available Not Available Not Available acetaminoph en 500 mg tablet TAKE 2 TABLETS BY MOUTH EVERY 8 HOURS NEEDED FOR PAIN OR FEVER 10/08 completed Not Available Not Available Not Available Vitamin tablet Take 1 tablet every day by oral route as directed. 10/08 completed Not Available Not Available Not Available oxycodone-a cetaminophe n 5 mg-325 mg tablet 12/14 completed Not Available Not Available Not Available promethazin e 25 mg tablet TAKE 1 TABLET BY MOUTH EVERY 4-6 HOURS NEEDED FOR NAUSEA 05/18 completed Not Available Not Available Not Available docusate sodium 100 mg capsule TAKE 1 CAPSULE BY MOUTH ONCE DAILY NEEDED FOR CONSTIPAT ION 10/08 completed Not Available Not Available Not Available aspirin 81 mg chewable tablet 10/08 completed Not Available Not Available Not Available ceftriaxone 500 mg solution for injection RECONSTIT SENECA-CAYUGA AND INJECT 500 MG ONCE DIRECTED 12/14 completed Not Available Not Available Not Available ergocalcife rol (vitamin D2) 1,250 mcg (50,000 unit) capsule TAKE 1 CAPSULE BY MOUTH WEEKLY FOR 12 WEEKS 12/14 completed Not Available Not Available Not Available ibuprofen 600 mg tablet TAKE 1 TABLET BY MOUTH EVERY 6 HOURS NEEDED FOR PAIN 05/18 completed Not Available Not Available Not Available levofloxaci n 500 mg tablet 12/14 completed Not Available Not Available Not Available medroxyprog esterone 150 mg/mL intramuscul ar suspension Inject 1 ml (150 mg) intramusc ularly every 3 months 05/18 completed Not Available Not Available Not Available metoclopram marcos 10 mg tablet TAKE 1 TABLET BY MOUTH EVERY 6 HOURS NEEDED FOR NAUSEA OR VOMITING 05/18 completed Not Available Not Available Not Available amoxicillin 875 mg-potassiu m clavulanate 125 mg tablet TAKE 1 TABLET BY MOUTH TWICE DAILY 05/18 completed Not Available Not Available Not Available Vitamin 27 mg iron-0.8 mg tablet Take 1 tablet every day by oral route for 90 days. 2021 active Not Available Not Available Not Avai lable Zithromax 500 mg tablet Take 2 tablets as needed by oral route for 1 day. 12/14 completed Not Available Not Available Not Available nitrofurant oin monohydrate /macrocryst als 100 mg capsule TAKE 1 CAPSULE BY MOUTH TWICE DAILY FOR 5 DAYS 05/18 completed Not Available Not Available Not Available FeroSul 325 mg (65 mg iron) tablet TAKE 1 TABLET BY MOUTH ONCE DAILY 10/08 completed Not Available Not Available Not Available Vinate One 60 mg iron-1 mg tablet 12/14 completed Not Available Not Available Not Available PNV-Select 27 mg-1 mg tablet Take 1 tablet every day by oral route for 60 days. 12/14 completed Not Available Not Available Not Available Vol-Plus 27 mg iron-1 mg tablet 12/14 completed Not Available Not Available Not Available Aurovela Fe 1-20 (28) 1 mg-20 mcg (21)/75 mg (7) tablet TAKE 1 TABLET BY MOUTH EVERY DAY 12/14 completed Not Available Not Available Not Available WesTab Plus 27 mg iron-1 mg tablet TAKE 1 TABLET BY MOUTH EVERY DAY 10/08 completed Not Available Not Available Not Available Vitals Date Recorded Body height Body mass index (BMI) Systolic blood pressure Diastolic blood pressure Provider Name and Address Organization Details Last Updated DateTime 04/12/2022 170.18 cm 20.5 kg/m2 114 mm[Hg] 66 mm[Hg] Veronica [place] [facility] 04/12/2022 10:12:46 Date Recorded Body weight Provider Name an d Address Organization Details Last Updated DateTime 04/12/2022 67071.17110 g GRISELDA PILLAI MD Attn: Accounting,[address] [place], [address], [facility] 04/12/2022 10:29:08 Date Recorded Body height Body mass index (BMI) Systolic blood pressure Diastolic blood pressure Provider Name and Address Organization Details Last Updated DateTime 05/10/2022 170.18 cm 21.5 kg/m2 98 mm[Hg] 66 mm[Hg] Veronica Whelan MA [facility] 05/10/2022 10:20:17 Date Recorded Body weight Provider Name an d Address Organization Details Last Updated DateTime 05/10/2022 02998.31479 g GRISELDA PILLAI MD Attn: Accounting,[address] [place], [address], [facility] 05/10/2022 10:28:17 Date Recorded Body height Body mass index (BMI) Body weight Systolic blood pressure Diastolic blood pressure Provider Name and Address Organization Details Last Updated DateTime 10/08/2022 170.18 cm 20.8 kg/m2 44973.78 521 g 140 mm[Hg] 96 mm[Hg] Veronica Whelan MA [facility] 10:12:14 Date Recorded Systolic blood pressure Diastolic blood pressure Provider Name and Address Organization Details Last Updated DateTime 10/08/2022 145 mm[Hg] 100 mm[Hg] Mauro Herrera MD Attn: Accounting, [place], [address], [facility] 10/08/2022 10:54:55 Date Recorded Body height Body mass index (BMI) Body weight Systolic blood pressure Diastolic blood pressure Provider Name and Address Organization Details Last Updated DateTime 05/18/2024 170.18 cm 21 kg/m2 97278.38 g 128 mm[Hg] 72 mm[Hg] Geena Rai MA [facility] 16:10:28 Social History Question Answer Notes LastModified by Organizat ion Details LastModified Time Tobacco Smoking Status Never Smoker Monica Aquino MA [facility], [place] - [facility] 02/17/2014 10:15:11 Do You Have An Advance Directive? No Information not available 12/14/2021 Animal Exposure? No [email or web address] Informat ion not available 02/17/2014 Do You Wear A Helmet When Biking? No [email or web address] Information not available 02/17/2014 Is Blood Transfusion Acceptable In An Emergency? Yes [email or web address] Information not available 08/05/2015 What Is Your Level Of Caffeine Consumption? Occasional [email or web address] Information not available 02/17/2014 How Much Tobacco Do You Chew? None [email or web address] Information not available 02/17/2014 What Type Of Diet Are You Following? REGULAR [email or web address] Information not available 02/17/2014 Which Illicit Or Recreational Drugs Have You Used? None [email or web address] Information not available 08/05/2015 Education 11 Information no t available 08/05/2015 What Is The Fluoride Status Of Your Home? Fluoridated [email or web address] Information not available 02/17/2014 Are There Any Guns Present In Your Home? No Information not available 02/17/2014 What Is Your Home Situation? Mother [email or web address] Information not available 02/17/2014 Live Alone Or With Others? With Others Mother [email or web address] Information not available 08/05/2015 Parent Involvement? Both Parents Involved [email or web address] Information not available 02/17/2014 Mosquito Repellent Used Routinely No Information not available 02/17/2014 What Was The Date Of Your Most Recent Tobacco Screening? 05/18/2024 Information not available 05/18/2024 How Many Children Do You Have? 0 [email or web address] Information not available 08/05/2015 What Is Your Parents' Marital Status? Unmarried [email or web address] Information not available 02/17/2014 Performs Monthly Self-breast Exam? Yes [email or web address] Information not available 08/05/2015 Pool Exposure No [email or web address] Information not available 02/17/2014 Do You Use Protection During Sex? Always 100% [email or web address] Information not available 08/05/2015 What Is Your Relationship Status? Single [email or web address] Information not available 08/05/2015 What Is The Name Of Your School? [employer] [email or web address] Information not available 02/17/2014 Do You Use Your Seat Belt Or Car Seat Routinely? No [email or web address] Information not available 02/17/2014 Seat Belts Used Routinely Yes [email or web address] Information not available 08/05/2015 Are You Sexually Active? Yes [email or web address] Information not available 08/05/2015 Do You Have Any Siblings? 2 [email or web address] Information not available 02/17/2014 Do You Have Smoke And Carbon Monoxide Detectors In Your Home? Yes [email or web address] Information not available 02/17/2014 Are You Passively Exposed To Smoke? Yes Information not available 12/14/2021 What Types Of Sporting Activities Do You Participate In? None [email or web address] Information not available 02/17/2014 General Stress Level Low [email or web address] Information not available 08/05/2015 Do You Use Sunscreen Routinely? No [email or web address] Information not available 02/17/2014 Has Tobacco Cessation Counseling Been Provided? Yes Information not available 12/14/2021 On What Date Was Tobacco Cessation Counseling Provided? 05/18/2024 Information not available 05/18/2024 How Many Years Have You Smoked Tobacco? 0 Information not available 02/17/2014 Year In School 11 [email or web address] Informatio n not available 02/17/2014 Sex: Unknown Functional Status Question Answer Note LastModified by Organizat ion Details LastModified Time Do you use any illicit or recreational drugs? Yes marijuana Information not available 12/14/2021 Do you or have you ever used any other forms of tobacco or nicotine? Yes black n milds Information not available 12/14/2021 What is your level of alcohol consumption? Occasional Information not available 12/14/2021 Do you or have you ever used smokeless tobacco? Never used [email or web address] tobacco Information not available 12/14/2021 Are you currently employed? 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 Current user of electronic cigarettes Information not available 12/14/2021 What is your exercise level? Occasional [email or web address] Information not available 02/17/2014 Mental Status Question Answer Note LastModified by Organization D etails LastModified Time Are you or have you been involved with bullying? No Information not available 02/17/2014 Family History Relationship Description Onset Age of this Age Resolved Age Notes LastModified by Organization Details LastModified Time Father No current problems or disability [email or web address] Not available 12/30 10:11:46 Mother No current problems or disability [email or web address] Not available 12/30 10:11:46 Medical History Condition Response Blood Diseases N Ear or Hearing Problems N Thyroid Problems N Depression Y Developmental or Behavioral Disorders Y Skin Problems N Premature N Anemia N Constipation N Anxiety Disorder Y Diabetes N Muscle, Joint, or Bone Problems N Bedwetting N Vision or Eye Problems Y Heart Problems/Murmur N Seizures/Epilepsy N Head Injury/Concussion N Cancer N Asthma N Allergies N ADHD N Bladder or Kidney Problems N Headaches N Chicken Pox N Autism Spectrum Disorder (ASD) N Gynecological History Statement/Question Response Flow Light Date of LMP 04/14/2024 On BCP's at Conception? N STIs/STDs N HPV Vaccine N Most Recent Mammogram Age at Menarche 15 Current Control Method Age at First Child 21 Sexually Active? Y Menses Monthly N Date of Last Pap Smear 12/14/2021 Sexual Problems? N LMP Approximate Desired Control Method Unknown Obstetrics History GPAL:G 5 P 1 1 2 2 Type Value Multiple Births 0 Full Term 1 Induced 2 Spontaneous 0 Premature 1 Living 2 Ectopics 0 Total 5 Immunizations Vaccine Type Date Status Note Provider Nam e and Address Organization Details Recorded Time Hep A, pediatric, unspecified formulation 2 completed GRISELDA PILLAI MD Attn: Accounting,[address] [place], [address], [place] [facility] 03/15/2022 10:31:39 COVID-19, mRNA, LNP-S, PF, 30 mcg/0.3 mL dose 1 completed GRISELDA PILLAI MD Attn: Accounting,[address] [place], [address], [place] [facility] 03/15/2022 10:31:39 Hep B, adolescent or pediatric 8 completed GRISELDA PILLAI MD Attn: Accounting,[address], [place], [address], [place] [facility] 03/15/2022 10:31:39 IPV 8 completed GRISELDA PILLAI MD Attn: Accounting,[address], [place], [place], [address] [place] [address], [place] [facility] 03/15/2022 10:31:39 Tdap 1 completed GRISELDA PILLAI MD Attn: Accounting,[address], [place], [address] [place] [address], [place] [facility] 03/15/2022 10:31:39 COVID-19, mRNA, LNP-S, PF, 30 mcg/0.3 mL dose, gabbie-sucrose 2 completed GRISELDA PILLAI MD Attn: Accounting,[address], [place], [address] [place] [address], [place] [facility] 03/15/2022 10:31:39 DTaP 8 completed GRISELDA PILLAI MD Attn: Accounting,[address], [place], [address] [place] [address], [place] [facility] 03/15/2022 10:31:39 DTaP 9 completed GRISELDA PILLAI MD Attn: Accounting,[address], [place], [address] [place] [address], [place] [facility] 03/15/2022 10:31:39 meningococcal MCV4P 0 completed GRISELDA PILLAI MD Attn: Accounting,[address], [place], [address] [place] [address], [place] [facility] 03/15/2022 10:31:39 DTaP 2 completed GRISELDA PILLAI MD Attn: Accounting,[address], [place], [address] [place] [address], [place] [facility] 03/15/2022 10:31:39 IPV 8 completed GRISELDA PILLAI MD Attn: Accounting,[address], [place], [address] [place] [address], [place] [facility] 03/15/2022 10:31:39 Influenza, split virus, trivalent, preservative 1 completed GRISELDA PILLAI MD Attn: Accounting[address] [place], [place], [address] [place] [address], [facility] - [facility] 03/15/2022 10:31:39 DTaP 8 completed GRISELDA PILLAI MD Attn: Accounting[address] [place], [place], [address] [place] [address], [facility] - [facility] 03/15/2022 10:31:39 influenza, split (incl. purified surface antigen) 9 completed GRISELDA PILLAI MD Attn: Accounting[address] [place], [place], [address] [place] [address], [facility] - SI 03/15/2022 10:31:39 Influenza, live, quadrivalent, intranasal 3 completed GRISELDA PILLAI MD Attn: Accounting[address] [place], [place], [address] [place] [address], [facility] - [facility] 03/15/2022 10:31:39 DTaP 9 completed GRISELDA PILLAI MD Attn: Accounting[address] [place], [address] [place] [address], [facility] - [facility] 03/15/2022 10:31:39 COVID-19, mRNA, LNP-S, PF, 30 mcg/0.3 mL dose 1 completed GRISELDA PILLAI MD Attn: Accounting,[address] [place], [address] [place] [address], [place] [facility] 03/15/2022 10:31:39 Hep A, pediatric, unspecified formulation 2 completed GRISELDA PILLAI MD Attn: Accounting[address] [place], [address] [place] [address], [place] [facility] 03/15/2022 10:31:39 Hep B, adolescent or pediatric 9 completed GRISELDA PILLAI MD Attn: Accounting,[address] [place], [address] [place] [address], [place] [facility] 03/15/2022 10:31:39 HPV, quadrivalent 9 completed GRISELDA PILLAI MD Attn: Accounting[address] [facility], [place], [place], [address] [place] [address], [facility] - [facility] 03/15/2022 10:31:39 Hep B, adolescent or pediatric 8 completed GRISELDA PILLAI MD Attn: Accounting[address] [facility], [place], [address] [place] [address], [facility] - [facility] 03/15/2022 10:31:39 HPV, quadrivalent 9 completed GRISELDA PILLAI MD Attn: Accounting,[address] [facility], [place], [address] [place] [address], [facility] - [facility] 03/15/2022 10:31:39 OPV 9 completed GRISELDA PILLAI MD Attn: Accounting,[address] [facility], [place], [address] [place] [address], [facility] - [facility] 03/15/2022 10:31:39 Influenza, split virus, quadrivalent, PF 1 completed GRISELDA PILLAI MD Attn: Accounting,[address] [facility], [place], [address] [place] [address], [facility] - [facility] 03/15/2022 10:31:39 HPV, quadrivalent 0 completed GRISELDA PILLAI MD Attn: Accounting,[address] [facility], [place], [address] [place] [address], [facility] - [facility] 03/15/2022 10:31:39 meningococcal MCV4P 4 completed GRISELDA PILLAI MD Attn: Accounting[address] [facility], [place], [address] [place] [address], [place] [facility] 04/12/2022 10:17:49 Influenza, split virus, trivalent, PF 4 completed Not Available [facility] 04/18/2019 02:42:04 Influenza, split virus, quadrivalent, PF 2 completed GRISELDA PILLAI MD Attn: Accounting[address] [facility], [place], [address] [place] [address], [place] [facility] 03/31/2022 12:07:56 Tdap 3 completed GRISELDA PILLAI MD Attn: Accounting[address] [facility], [place], [address], [place] [facility] 05/10/2022 11:42:12 DTP 8 completed GRISELDA PILLAI MD Attn: Accounting[address] [facility], [place], [address], [place] [facility] 06/08/2022 18:05:55 DTP 8 completed GRISELDA PILLAI MD Attn: Accounting[address] [facility], [place], [address], [place] [facility] 06/08/2022 18:05:55 Hib, unspecified formulation 8 completed Ramón [place] [facility] 10/08/2016 14:19:35 Hib, unspecified formulation 8 completed GRISELDA PILLAI MD Attn: Accounting,[address] [facility], [place], [address], [place] [facility] 03/15/2022 10:31:39 Hib, unspecified formulation 9 completed Ram[place] [facility] 10/08/2016 14:20:25 Hib, unspecified formulation 9 completed GRISELDA PILLAI MD Attn: Accounting,[address] [facility], [place], [address], [place] [facility] 03/15/2022 10:31:39 Influenza, live, trivalent, intranasal 9 completed GRISELDA PILLAI MD Attn: Accounting,[address] [facility], [place], [address], [place] [facility] 06/08/2022 18:05:55 Influenza, live, trivalent, intranasal 1 completed GRISELDA PILLAI MD Attn: Accounting,[address] [facility], [place], [address], [place] [facility] 06/08/2022 18:05:55 Influenza, live, trivalent, intranasal 2 completed Shakaoneal Linn null, [place] - [place] 10/08/2016 15:11:51 MMR 9 completed Miahscarlettoneal Linn null, [place] [facility] 10/08/2016 15:12:48 MMR 2 completed Ramón [place] null, [place] [facility] 10/08/2016 15:13:09 meningococcal ACWY, unspecified formulation 0 completed GRISELDA PILLAI MD Attn: Accounting[address] [facility], [place], [address], [facility] - SI 06/08/2022 18:05:55 polio, unspecified formulation 2 completed Ramón Linn null, [facility] 10/08/2016 15:16:24 Tdap 9 completed GRISELDA PILLAI MD Attn: Accounting[address] [facility], [place], [address], [facility] - SI 03/15/2022 10:31:38 varicella 9 completed Ramón Linn null, [facility] 10/08/2016 15:19:13 varicella 8 completed GRISELDA PILLAI MD Attn: Accounting[address] [facility], [place], [address], [facility] - [facility] 03/15/2022 10:31:39 Past Encounters Encounter ID Performer Location Encounter Start Date Encounter Closed Date Diagnosis/Indication Diagnosis SNOMED-CT Code Diagnosis ICD10 Code Diagnosis Note [id number] Joesph Hallman MD [facility] (Peds) [address] [place] [address] 02/17/2014 09:47:21 02/17/2014 11:47:11 Well child [id number] Acne [id number] Jemma Lance [facility] (STAFFING RECRUITER) [address] [place] [address] 02/19/2014 12:24:59 03/18/2014 13:38:01 Herpes simplex [id number] Jemma Lance [facility] (STAFFING RECRUITER) [address] [place] [address] 08/05/2015 14:20:47 08/08/2015 17:31:44 Gynecologic examination [id number] Z01.419 Contracept ion care management [id number] Z30.9 discussed BCM change c\o continued BTB & spotting unable to tolerate interferin g with ADL. discussed other forms of BCM patient currently undecided. leaning toward returning to previously used DEPO. Advised to schedule Nexplanon removal. [id number] ROMAN Zee-[facility] (STAFFING RECRUITER) [address] [place] [address] 04/23/2016 11:34:16 05/18/2016 10:10:06 Contraception care management 106549142 Z30.9 Nexplanon removal today. Discussed other forms of BCM but patient refused r\t: I like girls but NO SEX partners currently also asked & received condoms & Dental dams! [id number] Elsy Young MD [facility] (STAFFING RECRUITER) [address] [place] [address] 08/13/2016 12:23:40 08/13/2016 16:48:12 [id number] Z33.1 test positive 755139691 Z32.01 confirmati on plans to transfer to [place] for delivery. denies medical conditions of importance . Discussed marijuana use in . Pt. to have Labs drawn at hosp. lab and RTC in 2 weeks as NOB. [id number] Elsy Young MD [facility] (STAFFING RECRUITER) [address] [place] [address] 08/28/2016 11:57:45 08/28/2016 17:05:15 Normal 78488729 Z33.1 Chlamydial infection 105 583723 A74.9 [id number] Nuha Eller RN-[facility] (STAFFING RECRUITER) [address] [place] [address] 09/13/2016 13:53:46 09/14/2016 09:03:51 Normal 56993205 Z33.1 Venereal d isease screening 961714369 Z11.3 [id number] [facility] [address] [place] [address] 10/08/2016 14:09:09 10/08/2016 16:55:40 Normal 12163493 Z33.1 [id number] [facility] [address] [place] [address] 10/29/2016 14:05:55 11/01/2016 16:04:25 Chlamydial infection 099761307 A74.9 Ultrasound scan abnormal 475274954 R93.8 Normal 9286176 2 Z33.1 [id number] [facility] [address] [facility] [place] [address] 11/06/2016 12:05:07 11/06/2016 17:16:42 Normal 99866895 Z33.1 [id number] [facility] [address] [place] [address] 11/22/2016 09:37:29 11/22/2016 12:43:36 Normal 00468978 Z33.1 [id number] Elsy Young MD [email or web address] (STAFFING RECRUITER) [address] [facility] [place] [address] 01/14/2017 09:53:41 01/30/2017 19:16:01 Contraception care 999461905 Z30.40 Postoperative visit 1836 82626 Z09 No signs of infection. RTC in 4 weeks for PP exam. [id number] RACHELE BALTAZAR (STAFFING RECRUITER) [address] [place] [address] 12/14/2021 14:52:51 12/27/2021 12:42:02 Routine care 476516848 Z34.91 26yo presenting for NOB at approx 8 weeks per LMP 10/18/21. Denies bleeding, cramping, abnormal discharge. Bedside dating US with viable SIUP 8+4 weeks c/w LMP. FHT present at 164. Initial labs drawn today, order for first trimester US provided. OB education provided and SAB precaution s discussed. RTC in 4 weeks with Raul Smith at next visit. Past pregn steve history of severe pre-eclampsia 293110142 Z87.59 G1 with severe preE requiring early delivery at 31 weeks. Baseline labs obtained today. Initiate ASA at 12 weeks for preE prevention . Past pregn steve history of premature delivery 781802500 Z87.51 As above. Past pregn steve history of section 558392278 Z98.890 repeat c/s [id number] MD Vanessa VILLEGAS (STAFFING RECRUITER) [facility] [place] [address] 01/11/2022 10:06:43 01/30/2022 14:47:23 Routine care 256282894 Z34.01 TT is a 26y/o presenting @ 12.1 dated by LMP at 07/25/2022 concordant with US; here for routine OB exam. She has no significan t concerns today and reports normal antepartum symptoms of . She denies vaginal bleeding, vaginal discharge, loss of fluid, or contractio ns. She has not had a visit to ED or Triage since last appointmen t. Had (low-trans verse incision) at 31 weeks with previous for pre-eclamp mary. Has not been seen by MFM for this . also complicate d by marijuana use. Tested positive for trich and BV. Has not been treated.- anticipato ry guidance provided- continue PNV- start aspirin 81 mg- metronidaz ole 500 mg BID for 7 days for trich and BV- referral to MFM- follow up in 4 weeks if not able to be seen by MFM by then OB plan: 26y/o presenting @ 12.1 dated by LMP at 07/25/2022 concordant with USProblem List: , preeclamps ia, marijuana use INITIAL LABS 12/14/2021 lood Type: ORh Type: +Antibody Screen: NEGCBC: hemoglobin 12.2, hematocrit 36.3, platelets 222VDRL/RP R: Non-reacti veUrine Culture: NEGHBsAg: NEGHIV: NEGChlamyd ia: NEGGC (weeks 10-12): NEGRubella : ImmuneVari adin: ImmuneCF: NEGUDS: marijuana 10-12 weeksDatin g US:12/15/19 22; LMP: 10/18/2021; IUP ; LUIS DANIEL 07/25/2021 based on LMP concordant with USPap: WNL 16 weeks:mate rnit21 plus: pending Bacterial vaginosis 4197 33872 N76.0 Infection by Trichomonas 31434072 A59.9 Gestation period, 12 weeks 79378032 Z3A.12 Past pregn steve history of pre-eclampsia [id number] 68433 Z87.59 Past pregn steve history of premature delivery 148981750 Z87.51 [id number] GRISELDA PILLAI MD [facility] (STAFFING RECRUITER) [address] [place] [address] 02/01/2022 10:03:46 02/06/2022 11:41:56 Routine care 440747724 Z34.92 26 yo @ 15+1 wks by LMP = 8wk US here for JOSE L. (LUIS DANIEL 07/25/2022) . Preg complicate d by: Pre-eclamp mary w/ severe features in previous (on ASA 81 mg currently) , delivery via at 31 wks due to pre-eclamp mary, desires TOLAC, MJ smoking, BV and Trich early in . Pt has no complaints today, no FM yet, no VB or DC, no LOF, no ctx. Taking ASA 81mg daily, PNV makes her nauseous, wants gummies. Completed metronidaz ole for BV and Trich from last visit. Patient referred to [facility] for co-managem ent for now due to history of delivery with , wants TOLAC, will do a total transfer of care later in , pt cannot go to [place] often now. Anticipato ry guidance provided, will obtain BV and Trich Test of Cure today with Nuswab, rx for chewable PNV given. RTC in 4 weeks for JOSE L. (Anatomy US and AFP at next visit). Gestation period, 15 weeks 9715721 Z3A.15 Bacterial vaginosis in 9721844998 68653 O23.599 Trichomona l vaginitis in 840993826 O98.319 Past pregn steve history of section 423263311 Z98.890 desires TOLAC, will need total Transfer of Care to [facility] later in , patient without transport now, will keep with us with [facility] co-managem ent, will transfer closer to due date. Past pregn steve history of premature delivery 281027526 Z87.51 Past pregn steve history of pre-eclampsia 6485096866 73706 Z87.59 on ASA81 mg daily, baseline Pre-E labs wnl [id number] MD Vanessa VILLEGAS (STAFFING RECRUITER) [facility] [place] [address] 03/15/2022 10:04:44 03/21/2022 10:40:52 Routine care 524265051 Z34.92 26 yo @ 21+1 wks by LMP = 8wk US here for JOS EL. (LUIS DANIEL 07/25/2022) . Preg complicate d by: Pre-eclamp mary w/ severe features in previous (on ASA 81 mg currently) , delivery via at 31 wks due to pre-eclamp mary, desires TOLAC, MJ smoking, tobacco use, BV and Trich early in . Pt has no complaints today, endorsed good FM, no VB or DC, no LOF, no ctx. Taking ASA 81mg & PNV daily. Patient referred to [facility] for co-managem ent for now due to history of delivery with , wants TOLAC, will do a total transfer of care later in , pt cannot go to [place] often now. Pt missed her first appointmen t with [facility] and is planning to reschedule . Previously Tx for BV and Trich. PASQUALE now negative. Anticipato ry guidance provided. Anatomy US & AFP ordered today. RTC in 4 weeks for JOSE L. Flu shot provided today.- anticipato ry guidance provided- continue PNV- continue aspirin 81 mg- f/u on [facility] visits- follow up in 4 weeks if not able to be seen by [facility] by then-f/u on anatomy u/s & AFP results OB plan: 26y/o presenting @ 21.1 dated by LMP at 07/25/2022 concordant with USProblem List: , preeclamps ia, marijuana use, tobacco use INITIAL LABS 12/14/2021 lood Type: ORh Type: +Antibody Screen: NEGCBC: hemoglobin 12.2, hematocrit 36.3, platelets 222VDRL/RP R: Non-reacti veUrine Culture: NEGHBsAg: NEGHIV: NEGChlamyd ia: NEGGC (weeks 10-12): NEGBV & Trich positive, Tx w/ PASQUALE negative.R ubella: ImmuneVari adin: ImmuneCF: NEGUDS: marijuana 10-12 weeksDatin g US:12/15/19 22; LMP: 10/18/2021; IUP ; LUIS DANIEL 07/25/2021 based on LMP concordant with USPap: WNL 16 weeks:mate [email or web address] plus: Negative T21, T18, T13. Single. Female. 20-22 weeks:Viky marco a Scan: pending, ordered todayAFP: pending, ordered today Gestation period, 21 weeks 70490066 Z3A.21 Management as above Administra tion of influenza vaccine 48077489 Z23 Discussed w/ Pt who agrees. [id number] MD Vanessa VILLEGAS (STAFFING RECRUITER) [address] [place] [address] 04/12/2022 10:06:51 04/12/2022 13:48:54 Routine care 567945109 Z34.92 26 yo @ 25+1 wks by LMP = 8wk US here for JOSE L. (LUIS DANIEL 07/25/2022) . Preg complicate d by: Pre-eclamp mary w/ severe features in G1 (on ASA 162 mg currently) , delivery via at 31 wks due to pre-eclamp mary, desires TOLAC, MJ smoking, tobacco use, BV and Trich early in , negative PASQUALE. Pt has no complaints today, endorsed good FM, no VB or DC, no LOF, no ctx. Saw MFM at [place] yesterday, no concerns, patient continues to desire TOLAC, will need total transfer of care to [facility] in [place], ASA increased 162mg by MFM. Continue PNV. Anticipato ry guidance provided. AFP and Anatomy US wnl, RTC in 4 weeks for JOSE L. (1hr GTT, CBC, Tdap, RPR, HIV at that time) OB plan: 26y/o presenting @ 25.1 dated by LMP at 07/25/2022 concordant with 8wk USProblem List: Pre-eclamp mary w/ severe features in G1 (on ASA 162 mg currently) , delivery via at 31 wks due to pre-eclamp mary, desires TOLAC, MJ smoking, tobacco use, BV and Trich early in , negative PASQUALE INITIAL LABS 12/14/2021 lood Type: ORh Type: +Antibody Screen: NEGCBC: hemoglobin 12.2, hematocrit 36.3, platelets 222VDRL/RP R: Non-reacti veUrine Culture: NEGHBsAg: NEGHIV: NEGChlamyd ia: NEGGC (weeks 10-12): NEGBV & Trich positive, Tx w/ PASQUALE negative.R ubella: ImmuneVari adin: ImmuneCF: NEGUDS: marijuana 10-12 weeksDatin g US:12/15/19 22; LMP: 10/18/2021; IUP ; LUIS DANIEL 07/25/2021 based on LMP concordant with USPap: WNL 16 weeks:mate rnit21 plus: Negative T21, T18, T13. Single. Female. 20-22 weeks:Viky marco a Scan: ( 3) SIUP @ 25+0 wks, Female, cephalic, anterior placenta, FHR 149 bpm, 3VC, normal ANA LAURA, EFW 807g (59%), Adequate interval growth, Normal anatomy, follow up growth US in 5 weeks.AFP: ( 3) Negative for open spina bifida Gestation period, 25 weeks 22788314 Z3A.25 Past pregn steve history of section 759213946 Z98.890 desires TOLAC, will need total Transfer of Care to [facility] later in , patient without transport now, will keep with us with [facility] co-managem ent, will transfer closer to due date.- Will Transfer care to [facility] in [place] after next visit at 28 weeks [id number] MD Vanessa VILLEGAS (STAFFING RECRUITER) [facility] [place] [address] 05/10/2022 10:05:56 05/15/2022 17:01:13 Routine care 320423688 Z34.92 - Anatomy US recommende d follow up growth in 5 weeks, has Growth US scheduled on 05/18 with MFM at [place]. - Desires TOLAC, will start total transfer of care to [facility] in [facility].- 28 wk labs ordered today (1hr GTT, CBC, Tdap, RPR, HIV).- Continue ASA 162mg, PNV.- RTC in 2 weeks for JOSE L if no appt scheduled with MFM by that time.- anticipato ry guidance provided OB plan:26 yo @ 29+1 wks by LMP = 8wk US here for JOSE L. (LUIS DANIEL 07/25/2022) Problem List:Pre-e clampsia w/ severe features in G1 (on ASA 162 mg currently) , delivery via at 31 wks due to pre-eclamp mary - desires TOLAC, MJ smoking, tobacco use, BV and Trich early in , negative PASQUALE. INITIAL LABS 12/14/2021 lood Type: ORh Type: +Antibody Screen: NEGCBC: hemoglobin 12.2, hematocrit 36.3, platelets 222VDRL/RP R: Non-reacti veUrine Culture: NEGHBsAg: NEGHIV: NEGChlamyd ia: NEGGC (weeks 10-12): NEGBV & Trich positive, Tx w/ PASQUALE negative.R ubella: ImmuneVari adin: ImmuneCF: NEGUDS: marijuana 10-12 weeksDatin g US:12/15/19 22; LMP: 10/18/2021; IUP ; LUIS DANIEL 07/25/2021 based on LMP concordant with USPap: WNL 16 weeks:mate rnit21 plus: Negative T21, T18, T13. Single. Female. 20-22 weeks:Viky marco a Scan: 04/11/2022 - SIUP @ 25+0 wks, Female, cephalic, anterior placenta, FHR 149 bpm, 3VC, normal ANA LAURA, EFW 807g (59%), Adequate interval growth, Normal anatomy, follow up growth US in 5 weeks.AFP: Negative for open spina bifida 26-28 weeks: 05/10/2022 GTT: Done today CBC: Done today Urinalysis : NEG HIV Done Today RPR: Done TodayCBC: Done Today Tdap: Given 05/10/2022 Rhogam* Not indicated 36 weeks GBS: GC/Chlamyd ia: Limited US: Makayla villalta Awareness: [place]: {{postive negative}} PHQ9: {{postive negative}} GAD7: {{positive negative} } ACES: {{1 2 3 4 5+}} Resilience : {{high low }} SDOH: Desired delivering facility: [facility]}} Willing to participat e in group visits: {{yes no}} Planning to breastfeed : {{yes no}} Open to vaccinatio n: Tdap: {{yes no}} COVID: {{yes no}} Flu: {{yes no}} MMR: {{yes no n ot indicated} } Varicella: {{yes no n ot indicated} } Home visits ok: {{yes no}} Past pregn tseve history of pre-eclampsia [id number] 42804 Z87.59 on ASA 162 mg daily, baseline Pre-E labs wnl Gestation period, 29 weeks 13300892 Z3A.29 Supervisio n of high risk with history of previous section done 3851697410 9106 O09.240 [id number] GRISELDA PILLAI MD [facility] (STAFFING RECRUITER) [address] [place] [address] 10/08/2022 09:59:50 10/10/2022 09:09:57 Initiation of depot contraception done 7843698030 11717 Z30.013 test: negWill start Depo shots care 02134455 8 Z39.2 {{ 27#}}yo G{{ 4#}} now P{{ 1122#} } s/p {{Spontane ous Vaginal Delivery I nduced Vaginal Delivery C -section Delivery V FITZ#}} of {{Full-ter m* Pre-ter m Post-ter m}} {{AGA* LGA SGA}} {{Male Fem anthony*}} @ {{ 38.2#}} wks gestation on {{ 07/13/22 #}}. Complicate d by: Depression , tobacco, HSV on suppressiv e therapy, and HTN in period. Hx of delivery, PreE, abruption, Csec x1, Delivery {{uncompli cated* com plicated by:}}Lacer ations: {{none 1s t degree#}}E BL:610 ml Pre-Hgb {{ 10.3#}} g/dL, Post Hgb {{ 9.2#}} g/dLBirth DetailsApg ars: {{ 12/08#}}B irth weight: {{ 2790#}} g Course: {{uncompli cated comp licated by: compli cated by: HTN untreated# }} Today, {{ Would like to start Depo shot.#}}- Bonding: Reports she is bonding well with her baby.- Breast: Bottle feeding: enfamil- Belly: no pain- Bowels: daily, no changes- Bladder: No dysuria- Bleeding: no bleeding, taking vit still.- Blues (EDPS): Neg- Control:De po 10/08/2022- Not having sex: Hcg: neg- PreE in period: started nifedipine 30mg dialy Past pregn steve history of pre-eclampsia 5510170228 64212 Z87.59 -induced hypertension 7862080138 9100 O13.9 BP elevated in post period. history of PreE in previous . Not on treatment. Not complainin g of symptoms today. Pt does report she was drinking alcohol last night and has a hang hangover.- PreE labs today: LDH, UA, Urine Pro/Cr, CBC, CMP, PT/PTT- Will check daily, and give BP cuff today- Will start nifedipine ER: 30mg daily- Give BP cuff; Daily measuremen t's and start log- RTC in 1 week for BP check Anemia of 2734 2003 O99.019 continue vitaminCBC today [id number] MD Vanessa VILLEGAS (STAFFING RECRUITER) [address] [place] [address] 10/09/2022 11:59:20 10/10/2022 09:07:43 Contraception care management 012377189 Z30.9 [id number] MD Vanessa SNYDER (STAFFING RECRUITER) [address] [place] [address] 05/18/2024 15:33:23 06/01/2024 08:38:23 test positive 312564395 Z32.01 Patient now . Unsure if she wants to continue with this . Unsure of LMP. Recommend getting dating US to confirm gestationa l age.After discussion with clinical staff, per clinic policy, unable to order dating US.-Will check quantitati ve bHCG.-If patient wishes to continue with , will need to be establishe d with OB provider for orders. Abnormal m enstrual cycle 44379841 N92.6 Urine test positive. Health Concerns Section Related Observation LastModified by Organization Detai ls LastModified Time None Recorded Concern Status LastModified by Organization Details LastModified Time None Recorded Advance Directives Directive N: Payers Encounter Date Sequence Insurance Name Policy Number Policy Carlson Covered Member ID Carlson Member ID Guarantor Name 04/12/2022 1 [facility] ON OR AFTER 09/29/20 (MEDICAID REPLACEMENT - HMO) Esdras Saucedo [id number] Esdras Saucedo 05/10/2022 1 [facility] ON OR AFTER 09/29/20 (MEDICAID REPLACEMENT - HMO) Esdras Saucedo [id number] Esdras Saucedo 10/08/2022 1 [facility] ON OR AFTER 09/29/20 (MEDICAID REPLACEMENT - HMO) Esdras Saucedo [id number] Esdras Saucedo 10/09/2022 1 [facility] ON OR AFTER 09/29/20 (MEDICAID REPLACEMENT - HMO) Esdras Saucedo [id number] Esdras Saucedo 05/18/2024 1 [facility] ON OR AFTER 09/29/20 (MEDICAID REPLACEMENT - HMO) Esdras Saucedo [id number] Esdras Saucedo Notes Date Note Type Note Provider Name and Address Organization Details Recorded Time 04/12/2022 text/html 26 yo @ 25+1 wks by LMP = 8wk US here for JOSE L. (LUIS DANIEL 07/25/2022). Preg complicated by: Pre-eclampsia w/ severe features in G1 (on ASA 162 mg currently), delivery via at 31 wks due to pre-eclampsia, desires TOLAC, MJ smoking, tobacco use, BV and Trich early in , negative PASQUALE. Pt has no complaints today, endorsed good FM, no VB or DC, no LOF, no ctx. Saw MFM at [place] yesterday, no concerns, patient continues to desire TOLAC, will need total transfer of care to [facility] in [place], ASA increased 162mg by MFM. Continue PNV. Anticipatory guidance provided. AFP and Anatomy US wnl, RTC in 4 weeks for JOSE L. (1hr GTT, CBC, Tdap, RPR, HIV at that time) GRISELDA PILLAI MD Attn: Accounting[address] [place], [address], [place] [facility] 04/12/2022 16:31:33 05/10/2022 text/html 26 yo @ 29+1 wks by LMP = 8wk US here for JOSE L. (LUIS DANIEL 07/25/2022). Preg complicated by: Pre-eclampsia w/ severe features in G1 (on ASA 162 mg currently), delivery via at 31 wks due to pre-eclampsia - desires TOLAC, MJ smoking, tobacco use, BV and Trich early in , negative PASQUALE. Pt has no complaints today, endorsed good FM, no VB or DC, no LOF, no ctx. Ran out of ASA 162mg, requesting refills, taking PNV without issue. Anatomy US recommended follow up growth in 5 weeks, has Growth US scheduled on 05/18 with [facility] at [place]. Desires TOLAC, will start total transfer of care to [facility] in [facility]. 28 wk labs ordered today (1hr GTT, CBC, Tdap, RPR, HIV). Continue ASA 162mg, PNV. RTC in 2 weeks for JOSE L if no appt scheduled with [facility] by that time. GRISELDA PILLAI MD Attn: Accounting[address] [facility], [place], [address], [place] [facility] 05/10/2022 11:42:15 10/08/2022 text/html {{ 27#}}yo G{{ 4#}} now P{{ 5#}} s/p {{Spontaneous Vaginal Delivery Induced Vaginal Delivery Delivery #}} of {{Full-term* Pre-t erm Post-term}} {{AGA* LGA SGA}} {{Male Female*}} infant @ {{ 38.2#}} wks gestation on {{ 07/13/22#}}.Preg crispin Complicated by: Depression, tobacco, HSV on suppressive therapy, and HTN in period. Hx of delivery, PreE, abruption, Csec x1, BP: 140/96 and 145/100Not on medsno symptoms of PreEDoes have history of PreE and had elevated BP hospital period. No complaints todayReports was drinking last night and hungover this morning.BP elevated today and on recheck. Pt has not checking BP, has a wrist cuff at home not sure working correctly.Social: lives [place] with her other kids, single, safeBonding well with babyFormula feed: enfamil, no issues with getting formula or other resourcesNo BULLARD, changes in vision, SOB, LE swelling, abd pain, bleedingEdinburgh: negwants to get on BCnot having sex GRISELDA PILLAI MD Attn: Accounting[address] [place], [address], [facility] [place] 10/08/2022 14:56:25 05/18/2024 text/html 28F presenting t o the clinic for a check up. Urine test positive.LMP - unsure, however thinks it may be 03/14/2024. Now she is . Unsure if she wants to continue with this . Was not on any control. Not currently sexually active. Last time active was in January. Still taking BP medications Nifedipine. Also taking valacyclovir. No complaints of nausea or vomiting. Smokes weed.Denies smoking cigarettes. Denies any other drugs.Alcohol on weekends. ROS otherwise neg. KRISTY MUNGUIA MD Attn: Accounting[address] [facility], [place], [address], [facility] [place] 05/30/2024 19:51:54 OBGyn Episode Ob Episode Information Episode Created Date Number of Fetuses Patient Bloodtype Patient rh Status Prepregnancy Weight lbs Domestic Partner Domestic Partner Phone Father Name Auto Winder Status 12/15/19 22 1 O Positive 122 CLOSED Fetus Data First Name Last Name Admitted to NICU Weight (g) Sex Living Outcome Pediatric Complications Fetus ID Race Codes Race Delivery Type Dann ribera false 2789.59 08 F true Full Term Apgars: 9 [id number] Afric an Ameri can Problems Problem Notes Problem Name Start Date End Date Resolution Snomed Code Not e Anemia of 05/14/2022 75110682 Past history of pre-eclampsia [id number] G1, on 162 mg ASA, following with [facility] Past history of section 229999878 Desires TOLAC, will transfer care to [facility] in [place] Past history of premature delivery 130043218 at 31 weeks due to severe pre-E Trichomonal vaginitis in 12/20/2021 TREATMENT 779888110 pos at initial OB visit, Neg PASQUALE @ 15+1 wks Luis Daniel Calculation Initial Luis Daniel Date Initial Exam Date Initial Exam Provider Initial Ultrasound Date Last Menstrual Period Date Ultra Sound Weeks Gestation 07/25/2022 12/14/2021 [email or web address] 12/14/2021 10/18/2021 8 Eighteen To Twenty Week Luis Daniel Update Ultra Sound Date Fundal Height At Umbil Quickening Date Ultra Sound Latest Weeks Gestation Final Luis Daniel Confirmed By Final Luis Daniel Confirmed Date Final Luis Daniel Date Ultra Sound Latest Days Gestation 0 [email or web address] 12/27/2021 07/26/19 23 0 Pre- Flowsheet Flowsheet Date 12/14/2021 Lorenz Score Blood Edema Fundus Height Fundus Units Glucose Ketones Leukocytes Nitrite Labor Signs Protein Cervic Dilation Cervic Effacement Cervic Station neg none 8 wks none negative trace 0cm 0% -4 Type Weight in lbs Pre/Post Dialysis Refused With clothes 122.145882231856 BP Diastolic BP Location Tested BP Systolic BP Type 54 106 sitting Fetus Heart Rate Present A 164 Present Fetus Movement Comments 26yo presenting for NOB at approx 8 weeks per LMP 10/18/21. c/b h/o preE with severe features requiring delivery via c/s at 31 weeks. Denies bleeding, cramping, abnormal discharge. Bedside dating US with viable SIUP 8+4 weeks c/w LMP. FHT present at 164. Initial labs drawn today. OB education provided and SAB precautions discussed. Initiate ASA around 12 weeks. RTC in [address] Pillai, cfDNA at next visit. Flowsheet Date 01/11/2022 Lorenz Score Blood Edema Fundus Height Fundus Units Glucose Ketones Leukocytes Nitrite Labor Signs Protein Cervic Dilation Cervic Effacement Cervic Station neg none none negative neg Type Weight in lbs Pre/Post Dialysis Refused With clothes 125.686841792789 BP Diastolic BP Location Tested BP Systolic BP Type 62 112 sitting Fetus Heart Rate Present Fetus Movement Comments TT is a 26y/o presen ting @ 12.1 dated by LMP at 07/25/2022 concordant with US; here for routine OB exam. She has no significant concerns today and reports normal antepartum symptoms of . She denies vaginal bleeding, vaginal discharge, loss of fluid, or contractions. She has not had a visit to ED or Triage since last appointment. Had (low-transverse incision) at 31 weeks with previous for pre-eclampsia. Has not been seen by MFM for this . also complicated by marijuana use. Tested positive for trich and BV. Has not been treated. Continue PNV, start aspirin 81 mg daily, metronidazole 500 mg BID for 7 days for trich and BV, referral to MFM. Flowsheet Date 02/01/2022 Lorenz Score Blood Edema Fundus Height Fundus Units Glucose Ketones Leukocytes Nitrite Labor Signs Protein Cervic Dilation Cervic Effacement Cervic Station neg none none trace none trace Type Weight in lbs Pre/Post Dialysis Refused With clothes 124.570708491330 BP Diastolic BP Location Tested BP Systolic BP Type 60 100 sitting Fetus Heart Rate Present A 145 Present Fetus Movement A No Comments 26 yo @ 15+1 wks by LMP = 8wk US here for JOSE L. (LUIS DANIEL 07/25/2022). Preg complicated by: Pre-eclampsia w/ severe features in previous (on ASA 81 mg currently), delivery via at 31 wks due to pre-eclampsia, desires TOLAC, MJ smoking, BV and Trich early in . Pt has no complaints today, no FM yet, no VB or DC, no LOF, no ctx. Taking ASA 81mg daily, PNV makes her nauseous, wants gummies. Completed metronidazole for BV and Trich from last visit. Patient referred to [facility] for co-management for now due to history of delivery with , wants TOLAC, will do a total transfer of care later in , pt cannot go to [place] often now. Anticipatory guidance provided, will obtain BV and Trich Test of Cure today with Nuswab, rx for chewable PNV given. RTC in 4 weeks for JOSE L. (Anatomy US and AFP at next visit). Flowsheet Date 03/15/2022 Lorenz Score Blood Edema Fundus Height Fundus Units Glucose Ketones Leukocytes Nitrite Labor Signs Protein Cervic Dilation Cervic Effacement Cervic Station neg none 18 cm none negative none 1+ Type Weight in lbs Pre/Post Dialysis Refused With clothes 126.68336281153 BP Diastolic BP Location Tested BP Systolic BP Type 66 104 sitting Fetus Heart Rate Present A 140 Present Fetus Movement A Yes Comments 26 yo @ 21+1 wks by LMP = 8wk US here for JOSE L. (LUIS DANIEL 07/25/2022). Preg complicated by: Pre-eclampsia w/ severe features in previous (on ASA 81 mg currently), delivery via at 31 wks due to pre-eclampsia, desires TOLAC, MJ smoking, tobacco use, BV and Trich early in . Pt has no complaints today, endorsed good FM, no VB or DC, no LOF, no ctx. Taking ASA 81mg & PNV daily. Patient referred to [facility] for co-management for now due to history of delivery with , wants TOLAC, will do a total transfer of care later in , pt cannot go to [place] often now. Pt missed her first appointment with [facility] and is planning to reschedule. Previously Tx for BV and Trich. PASQUALE now negative. Anticipatory guidance provided. Anatomy US & AFP ordered today. RTC in 4 weeks for JOSE L. Flu shot provided today.- anticipatory guidance provided- continue PNV- continue aspirin 81 mg - f/u on MFM visits- follow up in 4 weeks if not able to be seen by MFM by then-f/u on anatomy u/s & AFP results Flowsheet Date 04/12/2022 Lorenz Score Blood Edema Fundus Height Fundus Units Glucose Ketones Leukocytes Nitrite Labor Signs Protein Cervic Dilation Cervic Effacement Cervic Station none 25 cm none Type Weight in lbs Pre/Post Dialysis Refused With clothes 131.864330428145 BP Diastolic BP Location Tested BP Systolic BP Type 66 114 sitting Fetus Heart Rate Present A 141 Present Fetus Movement A Yes Comments 26 yo @ 25+1 wks by LMP = 8wk US here for JOSE L. (LUIS DANIEL 07/25/2022). Preg complicated by: Pre-eclampsia w/ severe features in G1 (on ASA 162 mg currently), delivery via at 31 wks due to pre-eclampsia, desires TOLAC, MJ smoking, tobacco use, BV and Trich early in , negative PASQUALE. Pt has no complaints today, endorsed good FM, no VB or DC, no LOF, no ctx. Saw MFM at [place] yesterday, no concerns, patient continues to desire TOLAC, will need total transfer of care to [facility] in [place], ASA increased 162mg by MFM. Continue PNV. Anticipatory guidance provided. AFP and Anatomy US wnl, RTC in 4 weeks for JOSE L. (1hr GTT, CBC, Tdap, RPR, HIV at that time) Flowsheet Date 05/10/2022 Lorenz Score Blood Edema Fundus Height Fundus Units Glucose Ketones Leukocytes Nitrite Labor Signs Protein Cervic Dilation Cervic Effacement Cervic Station neg none 29 cm none negative none neg Type Weight in lbs Pre/Post Dialysis Refused With clothes 137.097996612558 BP Diastolic BP Location Tested BP Systolic BP Type 66 98 sitting Fetus Heart Rate Present A 145 Present Fetus Movement A Yes Comments 26 yo @ 29+1 wks by LMP = 8wk US here for JOSE L. (LUIS DANIEL 07/25/2022). Preg complicated by: Pre-eclampsia w/ severe features in G1 (on ASA 162 mg currently), delivery via at 31 wks due to pre-eclampsia - desires TOLAC, MJ smoking, tobacco use, BV and Trich early in , negative PASQUALE. Pt has no complaints today, endorsed good FM, no VB or DC, no LOF, no ctx. Ran out of ASA 162mg, requesting refills, taking PNV without issue. Anatomy US recommended follow up growth in 5 weeks, has Growth US scheduled on 05/18 with M at [place]. Desires TOLAC, will start total transfer of care to [facility] in [facility]. 28 wk labs ordered today (1hr GTT, CBC, Tdap, RPR, HIV). Continue ASA 162mg, PNV. RTC in 2 weeks for JOSE L if no appt scheduled with M by that time. Flowsheet Date 10/08/2022 Lorenz Score Blood Edema Fundus Height Fundus Units Glucose Ketones Leukocytes Nitrite Labor Signs Protein Cervic Dilation Cervic Effacement Cervic Station Type Weight in lbs Pre/Post Dialysis Refused With clothes 133.779327090475 BP Diastolic BP Location Tested BP Systolic BP Type 96 140 sitting 100 145 Fetus Heart Rate Present Fetus Movement Comments Menstrual History Last Menstrual Date Menses Monthly On Bcp Conception Prior Menses Frequency Hcg Plus Date Menarche Onset Age 0710/18/2021 false Genetic Screening And Infection History Question Response Note Patient's Age Will Be 35 Yea rs Or Older At Estimated Date of Delivery false Thalassemia ([place]er, Serbian, Mediterranean, Or Background): MCV < 80 false Neural Tube Defect (Meningom yelocele, Spina Bifida, Or Anencephaly) false Congenital Heart Defect false Down Syndrome false Arun-Sachs (eg, Mandaeism, Cajun, Czech-[place] Islander) f alse Anila Disease false Sickle Cell Disease Or Trait () false Hemophilia Or Other Blood Disorders false Muscular Dystrophy false Cystic Fibrosis false [place]'s Chorea false Mental Retardation/Autism false Other Inherited Genetic Or Chromosomal Disorder false Maternal Metabolic Disorder (eg, Type 1 Diabetes , PKU) false Patient Or Baby's Father Had A Child With Defects Not Listed Above false Recurrent Loss, Or A Stillbirth false Medications (including Suppl ements, Vitamins, Herbs, OTC Drugs), Illicit/Recreational Drugs, Alcohol true marijuana Any Other Genetic History false Live With Someone With TB Or Exposed To TB false Patient Or Partner Has History Of Genital Herpes true Mother has herpes Rash Or Viral Illness Since Last Menstrual Perio d false History Of STD, Gonorrhea, Chlamydia, HPV, Syphi lis true trich Other Infection History false History of HIV false History of Hepatitis false Prior GBS-infected child false Delivery Information Delivery Date Delivery Type Labor Anesthesia Weeks Gestation Incision Type Labor Labor Length Hrs Delivered By Post Complications Tubal Sterilization Discharge Date Comments 3 Sponta neous 38.2 [facility]/MFM None false 07/14/2022 Discharge Information Feeding Method Contraceptive Method Maternal HG B and HCT Levels Bottle depo 9.2/29.5 Ob Episode Information Episode Created Date Number of Fetuses Patient Bloodtype Patient rh Status Prepregnancy Weight lbs Domestic Partner Domestic Partner Phone Father Name Auto Winder Status 12/15/19 22 1 CLOSED Fetus Data First Name Last Name Admitted to NICU Weight (g) Sex Living Outcome Pediatric Complications Fetus ID Race Codes Race Delivery Type , Induced [id number] Luis Daniel Calculation Initial Luis Daniel Date Initial Exam Date Initial Exam Provider Initial Ultrasound Date Last Menstrual Period Date Ultra Sound Weeks Gestation 0 Eighteen To Twenty Week Luis Daniel Update Ultra Sound Date Fundal Height At Umbil Quickening Date Ultra Sound Latest Weeks Gestation Final Luis Daniel Confirmed By Final Luis Daniel Confirmed Date Final Luis Daniel Date Ultra Sound Latest Days Gestation 0 0 Menstrual History Last Menstrual Date Menses Monthly On Bcp Conception Prior Menses Frequency Hcg Plus Date Menarche Onset Age Delivery Information Delivery Date Delivery Type Labor Anesthesia Weeks Gestation Incision Type Labor Labor Length Hrs Delivered By Post Complications Tubal Sterilization Discharge Date Comments 0 7 Discharge Information Feeding Method Contraceptive Method Maternal HG B and HCT Levels Ob Episode Information Episode Created Date Number of Fetuses Patient Bloodtype Patient rh Status Prepregnancy Weight lbs Domestic Partner Domestic Partner Phone Father Name Auto Winder Status 12/15/19 22 1 CLOSED Fetus Data First Name Last Name Admitted to NICU Weight (g) Sex Living Outcome Pediatric Complications Fetus ID Race Codes Race Delivery Type , Induced [id number] Luis Daniel Calculation Initial Luis Daniel Date Initial Exam Date Initial Exam Provider Initial Ultrasound Date Last Menstrual Period Date Ultra Sound Weeks Gestation 0 Eighteen To Twenty Week Luis Daniel Update Ultra Sound Date Fundal Height At Umbil Quickening Date Ultra Sound Latest Weeks Gestation Final Luis Daniel Confirmed By Final Luis Daniel Confirmed Date Final Luis Daniel Date Ultra Sound Latest Days Gestation 0 0 Menstrual History Last Menstrual Date Menses Monthly On Bcp Conception Prior Menses Frequency Hcg Plus Date Menarche Onset Age Delivery Information Delivery Date Delivery Type Labor Anesthesia Weeks Gestation Incision Type Labor Labor Length Hrs Delivered By Post Complications Tubal Sterilization Discharge Date Comments 1 6 Discharge Information Feeding Method Contraceptive Method Maternal HG B and HCT Levels Ob Episode Information Episode Created Date Number of Fetuses Patient Bloodtype Patient rh Status Prepregnancy Weight lbs Domestic Partner Domestic Partner Phone Father Name Auto Winder Status 08/14/19 17 1 O Positive (Dc Pettit CLOSED Fetus Data First Name Last Name Admitted to NICU Weight (g) Sex Living Outcome Pediatric Complications Fetus ID Race Codes Race Delivery Type true 1162.32 95 F true [place] e [id number] Afric an Ameri can Problems Problem Notes Problem Name Start Date End Date Resolution Snomed Code Not e Alpha-fetoprotein above reference range 08/28/2016 09/13/2016 [id number] Recalculated Chlamydial infection 08/13/2016 [id number] 0 Substance abuse [id number] Unplanned [id number] Abnormality of heart 10/10/2016 [id number] echogenic ventr icle- [facility]sm referral Luis Daniel Calculation Initial Luis Daniel Date Initial Exam Date Initial Exam Provider Initial Ultrasound Date Last Menstrual Period Date Ultra Sound Weeks Gestation 03/02/2017 08/13/2016 [email or web address] 09/10/2016 05/02/2016 14 Eighteen To Twenty Week Luis Daniel Update Ultra Sound Date Fundal Height At Umbil Quickening Date Ultra Sound Latest Weeks Gestation Final Luis Daniel Confirmed By Final Luis Daniel Confirmed Date Final Luis Daniel Date Ultra Sound Latest Days Gestation 0 [email or web address] 09/13/2016 03/02/20 17 0 Pre-bryanna Flowsheet Flowsheet Date 08/13/2016 Lorenz Score Blood Edema Fundus Height Fundus Units Glucose Ketones Leukocytes Nitrite Labor Signs Protein Cervic Dilation Cervic Effacement Cervic Station Type Weight in lbs Pre/Post Dialysis Refused 124.890091071983 BP Diastolic BP Location Tested BP Systolic BP Type 88 90 Fetus Heart Rate Present Fetus Movement Comments confirmation plans to transfer to [place] for delivery. denies medical conditions of importance. Discussed marijuana use in . Pt. to have Labs drawn at hosp. lab and RTC in 2 weeks as NOB. Flowsheet Date 08/28/2016 Lorenz Score Blood Edema Fundus Height Fundus Units Glucose Ketones Leukocytes Nitrite Labor Signs Protein Cervic Dilation Cervic Effacement Cervic Station neg none none negative none neg 0cm 0% - 4 Type Weight in lbs Pre/Post Dialysis Refused 126.05942962939 BP Diastolic BP Location Tested BP Systolic BP Type 52 110 sitting Fetus Heart Rate Present A Absent Fetus Movement A Yes Comments NOB seen at [place] and had panel drawn there. Was informed of positive Chlamydia but didn't get meds. STI counseling. Positive drug screen for Marijuana. Reviewed remaining panel. Pt. to have quad. screen today and OB u/s scheduled. RTC in 3 weeks. Flowsheet Date 09/13/2016 Lorenz Score Blood Edema Fundus Height Fundus Units Glucose Ketones Leukocytes Nitrite Labor Signs Protein Cervic Dilation Cervic Effacement Cervic Station neg none none negative none trace Type Weight in lbs Pre/Post Dialysis Refused 123.880619952719 BP Diastolic BP Location Tested BP Systolic BP Type 78 100 sitting Fetus Heart Rate Present A 140's-150's Fetus Movement A No Comments RTC for care. Weigh t loss, pt. states that she is eating but with her work schedule she finds it difficult to eat snacks. Discussed original findings of AFP and inability to recalculate. Lab mario. contacted to discard Beck sample pt. would have only been 11.4 wks. AFP today. Pt. to RTC in 3 weeks. Flowsheet Date 10/08/2016 Lorenz Score Blood Edema Fundus Height Fundus Units Glucose Ketones Leukocytes Nitrite Labor Signs Protein Cervic Dilation Cervic Effacement Cervic Station neg none none negative none trace Type Weight in lbs Pre/Post Dialysis Refused 127.911203146511 BP Diastolic BP Location Tested BP Systolic BP Type 60 100 sitting Fetus Heart Rate Present A 140's-150's Fetus Movement A Yes Comments Here for care. Antonio rated medication well. Not sure if partner got treated but hasn't had sex since treatment. Discussed new AFP results as being wnl. Positive weight gain this visit. Pt. to be scheduled for u/s and RTC in 3 weeks. Pt. to see healthy start. Flowsheet Date 10/29/2016 Lorenz Score Blood Edema Fundus Height Fundus Units Glucose Ketones Leukocytes Nitrite Labor Signs Protein Cervic Dilation Cervic Effacement Cervic Station neg none 20 none negative none neg Type Weight in lbs Pre/Post Dialysis Refused 127.969026625405 BP Diastolic BP Location Tested BP Systolic BP Type 62 92 sitting Fetus Heart Rate Present A 140's-150's Fetus Movement A Yes Comments Here with partner. States sh e needs to be retreated was sexually active with untreated partner. EPT and retreatment of pt. today. Reinforced no sexual activity for 2 weeks post treatment. Discussed u/s findings and referral to [facility]. Esdras will be contacted with appt. info. Pt. will RTC in 3 weeks 1hr. GTT then. Flowsheet Date 11/06/2016 Lorenz Score Blood Edema Fundus Height Fundus Units Glucose Ketones Leukocytes Nitrite Labor Signs Protein Cervic Dilation Cervic Effacement Cervic Station neg none 23 none negative none trace Type Weight in lbs Pre/Post Dialysis Refused 127.83193903139 BP Diastolic BP Location Tested BP Systolic BP Type 70 98 sitting Fetus Heart Rate Present A 140's-150's Fetus Movement A Yes Comments Has [facility] appt. tomorrow. Bishop es problems. Has been eating with no c/o n/v. Pt. to RTC in 2 weeks will have 1hr.GTT then. Flowsheet Date 11/15/2016 Lorenz Score Blood Edema Fundus Height Fundus Units Glucose Ketones Leukocytes Nitrite Labor Signs Protein Cervic Dilation Cervic Effacement Cervic Station Type Weight in lbs Pre/Post Dialysis Refused BP Diastolic BP Location Tested BP Systolic BP Type Fetus Heart Rate Present Fetus Movement Comments Pt. to be scheduled with MD/ OB next appt. due to u/s findings and [facility] recommendations Flowsheet Date 11/22/2016 Lorenz Score Blood Edema Fundus Height Fundus Units Glucose Ketones Leukocytes Nitrite Labor Signs Protein Cervic Dilation Cervic Effacement Cervic Station neg none 24 none negative none neg Type Weight in lbs Pre/Post Dialysis Refused 133.228465251167 BP Diastolic BP Location Tested BP Systolic BP Type 60 100 Fetus Heart Rate Present A 140's-150's Fetus Movement A Yes Comments RTC for care has f/ u appt. at [facility] on the . Denies problems, positive weight gain this visit. Drank OJ this morning. Will do 1hr. GTT next visit. Partner present at visit. Pt. to RTC in 2 weeks for MD/OB. Flowsheet Date 01/14/2017 Lorenz Score Blood Edema Fundus Height Fundus Units Glucose Ketones Leukocytes Nitrite Labor Signs Protein Cervic Dilation Cervic Effacement Cervic Station Type Weight in lbs Pre/Post Dialysis Refused 129.201413682329 BP Diastolic BP Location Tested BP Systolic BP Type 84 112 sitting Fetus Heart Rate Present Fetus Movement Comments Menstrual History Last Menstrual Date Menses Monthly On Bcp Conception Prior Menses Frequency Hcg Plus Date Menarche Onset Age 0205/02/2016 false false 7 13 Genetic Screening And Infection History Question Response Note Patient's Age Will Be 35 Yea rs Or Older At Estimated Date of Delivery false Thalassemia ([place], Serbian, Mediterranean, Or Background): MCV < 80 false Neural Tube Defect (Meningom yelocele, Spina Bifida, Or Anencephaly) false Congenital Heart Defect false Down Syndrome false Arun-Sachs (eg, Mandaeism, Cajun, Czech-[place] Islander) f alse Anila Disease false Sickle Cell Disease Or Trait () false Hemophilia Or Other Blood Disorders false Muscular Dystrophy false Cystic Fibrosis false [place]'s Chorea false Mental Retardation/Autism false If Yes, Was Person Tested For Fragile X? false Other Inherited Genetic Or Chromosomal Disorder false Maternal Metabolic Disorder (eg, Type 1 Diabetes , PKU) false Patient Or Baby's Father Had A Child With Defects Not Listed Above false Recurrent Loss, Or A Stillbirth false Medications (including Suppl ements, Vitamins, Herbs, OTC Drugs), Illicit/Recreational Drugs, Alcohol true melatonin If Yes, Agent(s) And Strength/Dosage false Any Other Genetic History false Live With Someone With TB Or Exposed To TB false Patient Or Partner Has History Of Genital Herpes false Rash Or Viral Illness Since Last Menstrual Perio d false History Of STD, Gonorrhea, Chlamydia, HPV, Syphi lis true Chlamydia Other Infection History false Delivery Information Delivery Date Delivery Type Labor Anesthesia Weeks Gestation Incision Type Labor Labor Length Hrs Delivered By Post Complications Tubal Sterilization Discharge Date Comments 7 Induce d [facility] 30.5 Low Transvers e true false 12/31/2016 IUGRPre-e clampsiaA bruption Discharge Information Feeding Method Contraceptive Method Maternal HG B and HCT Levels Bottle
--- OUTSIDE RECORDS SUMMARY | 2024-08-21 10:26 | XMS_ITS | Clinical Summary ---
Author Organization [facility] [email or web address] Address [address] [place] [address] Care Team Providers Care Floor Representative Name Role Phone Joesph Hallman MD Primary Care Provider [phone] Source Comments [facility] [email or web address],non-owned Affiliates and Associated Physician Practices is amultiple site organization consisting of ambulatory clinics and hospital sitesin [place], [place], [place] and [place]. This disclosure is being madepursuant to the Care Everywhere program and may not contain all information available regarding this patient. Last updated 17.[facility] [email or web address] Allergies No known active allergies Medications * Be aware that medications may not be up to date on this document. Alwaysverify current medications with the patient. ferrous gluconate 324 (38 Fe) MG tablet Take 1 (one) tablet by mouth once daily Active valACYclovir (Valtrex) 500 MG tablet Take 2 (two) tablets by mouth every 12 hours 14 tablet 3 Active ferrous sulfate 325 (65 FE) MG tablet Take 1 (one) tablet by mouth once daily 30 tablet 1 3 Active Additional Information Patient not taking.Reason: Patient adjusted, Reported on 07/22/2024 plus iron (Natatab) 29-1 MG tablet Take 1 (one) tablet by mouth once daily 90 tablet 4 3 Active Additional Information Patient not taking.Reason: Patient adjusted, Reported on 07/22/2024 Active Problems Patient Care Coordination No te Formatting of this note migh t be different from the original. [employer] form completed. Diapers given. 05/21/2022, 06/18/22,07/12/22, 08/08/22PP Problem Noted Date Diagnosed Date Leakage of amniotic fluid 07/13/2022 Supervision of high-risk of young lesley igravida 05/21/2022 Overview (05/21/2022): Recieved PNC from Dr. Lee Ann Wiggins - transferred to [facility] due to pt's desire for TOLAC 1. Dating: Based on LMP (10/18/21) and confirmed by 8.4 week u/s 2. PNL: O+/Imm/-/-/NR, Varicella:Immune, 3. Hep C: Negative 4. Gc/Chl/trich: 5. Urine culture: Negative 6. UDS: + THC 7. Hgb Elec: Negative 8. Cystic Fibrosis: Negative 9. SMA carrier screenin. Serum AFP: negative 11. NIPT: Low Risk Female 12. Pap: Normal 12/14/21 13. MOF: cont to discuss 14. MOC: cont to discuss 15. MOD: Desires TOLAC, Counseled per Dr. Dudley on 04/11/22 16. EPDS: unknown 17. Flu Vaccine: 03/15/22 18. GCT: 103 05/10/22 19. 3T labs: Hgb: 10.8, PTL: 189, HIV:NR, RPR:NR (05/10/22) 20. S/p Tdap: 05/10/22 21. COVID: x1 01/26/21& x1 06/13/21 22. GBS @ 36 weeks 23. Delivery Plan: No indication for delivery before 39 weeks at this time, unless clinically indications change History of 05/21/2022 Overview (05/21/2022): LTC/S 2017 at [facility] Desires TOLAC TOLAC counseling on 04/11/22 Pt transfer of care to [facility] for TOLAC Prior with placent a abruption in third trimester, antepartum 05/21/2022 Overview (05/21/2022): G1: Placenta Abruption, Pre-E, IUGR with abnormal dopplers. Delivered at 30.5 weeks Hx of preeclampsia, prior pr egnancy, currently , third trimester 05/21/2022 Overview (05/21/2022): Was taking LD ASA 81 mg Increased to LD ASA 162 mg on 04/11/22 Pt reports Compliance with LD ASA - P/C <1 11/2021, CMP wnl 11/2021 - Normotensive this - Pt has home b/p cuff and instructed to check B/P's BID Tobacco smoking affecting in third tri mester 05/21/2022 Overview (05/21/2022): Pt reports 1 Cigarette per day Not using Nicotine gum/lozenges Trichomonal vaginitis during in first trimester 05/21/2022 Overview (05/21/2022): Positive at [facility] 02/01/22: Negative History of poor growth 05/21/2022 Overview (05/21/2022): 2017: G1: IUGR with abnormal Doppler Studies History of delivery 05/21/2022 Overview (05/21/2022): G1: Placenta Abruption, Pre-E, IUGR with abnormal dopplers. Delivered at 30.5 weeks Encounter for ultrasound 05/21/2022 Overview (05/21/2022): 04/11/22: EFW: 59%, AC 17% Anatomy Complete 05/21/22: EFW: 39%, AC 17% Rpt in 4 weeks History of chlamydia 05/21/2022 Overview (05/21/2022): Chlamydia in G1: 2017 Negative at [facility] this HSV infection 12/21/2016 Overview (05/21/2022): History of HSV in 2013 Pt denies having an outbreak during this Plan: Suppressive Therapy at 36 weeks Estimated Date of Delivery Comme nts Yes 10/01/2024 Based on Ultraso und Resolved Problems Problem Noted Date Diagnosed Date Resolved Date Abruptio placenta 12/27/2016 02/21/2022 Hypertension complicating pr egnancy in third trimester 12/20/2016 05/21/2022 Encounter for ultrasound to check growth 11/20/2016 02/21/2022 Evaluate anatomy not seen on prior sonogram 11/20/2016 02/21/2022 Echogenic focus of heart of fetus affecting antepartum care of mother 11/20/2016 02/21/2022 IUGR (intrauterine growth re striction) affecting care of mother 11/20/2016 02/21/2022 Encounters Date Type Department Care Team Description 07/22/2024 12:58 PM CDT - 07/22/2024 11:59 PM CDT Hospital Encounter [facility] [address] [place] [id number] Paul Bernal MD Discharge Disposition: Home or Self Care 07/22/2024 12:57 PM CDT Hospital Encounter [facility] [address] [place] [phone] Paul Bernal MD Discharge Disposition: Home or Self Care from Last 3 Months Immunizations Immunization Administration Dates Next Due INFLUENZA VACCINE, QUADR. (F LUZONE; FLULAVAL; FLUARIX; AFLURIA QUADRIVALENT; 6MO+), 0.5 ML (IIV4) 12/20/2016 MMR 07/14/2022(Deferred: See Comments - pt is immune),07/13/2022() TDAP (7yrs+) 07/14/2022(),07/13/2022() Family History Medical History Relation Name Comments Other - Cardiac Mother Relation Name Status Comments Mother Social History Tobacco Use Types Packs/Day Years Used Date Smoking Tobacco: Former Cigarettes Smokeless Tobacco: Never Tobacco Cessation:Counseling Given: Not Answered Alcohol Use Standard Drinks/Week Comments Not Currently 0 (1 standard drink = 0.6 oz pur e alcohol) Not while Overall Financial Resource Strain (CARDIA) Answe r Date Recorded How hard is it for you to pa y for the very basics like food, housing, medical care, and heating? Not hard at all 07/13/2022 [facility] [place] [facility] Occupat ional Health - Occupational Stress Questionnaire Answer Date Recorded Do you feel stress - tense, restless, nervous, or anxious, or unable to sleep at night because your mind is troubled all the time - these days? Not at all 07/13/2022 Hunger Vital Sign Answer Date Recorded Within the past 12 months, y ou worried that your food would run out before you got the money to buy more. Never true 07/14/19 23 Within the past 12 months, t he food you bought just didn't last and you didn't have money to get more. Never true 07/13/2022 PRAPARE - Transportation Answer Date Re corded In the past 12 months, has l ack of transportation kept you from medical appointments or from getting medications? No 06/30 In the past 12 months, has l ack of transportation kept you from meetings, work, or from getting things needed for daily living? No 07/13/2022 Housing Stability Vital Sign Answer Buddy e Recorded In the last 12 months, was t here a time when you were not able to pay the mortgage or rent on time? No 07/13/2022 In the last 12 months, how many places have you lived? 1 07/13/2022 In the last 12 months, was t here a time when you did not have a steady place to sleep or slept in a assisted (including now)? No 07/13/2022 [place] Depression Scale Answer Date Recorded [place] Depression Scale Total 6 08/08/2022 The thought of harming myself has occurred to me . Never 08/08/2022 Estimated Date of Delivery Comme nts Yes 10/01/2024 Based on Ultraso und Sex and Gender Information Value Date Recorded Sex Assigned at Not on file Legal Sex Female 7:45 AM [employer] Gender Identity Not on file Sexual Orientation Not on file Last Filed Vital Signs Vital Sign Reading Time Taken Comments Blood Pressure 120/74 07/22/2024 1:45 PM CDT Pulse 101 07/22/2024 1:45 PM CDT Temperature 36.7 C (98.1 F) 07/14/2022 3:55 PM CDT Respiratory Rate 16 07/22/2024 1:45 PM CDT Oxygen Saturation 100% 07/14/2022 3:55 PM CDT Inhaled Oxygen Concentration - - Weight 64.9 kg (143 lb) 07/22/2024 1:45 PM CDT Height 170.2 cm (5' 7 ) 07/22/2024 1:45 PM CDT Body Mass Index 22.4 07/22/2024 1:45 PM CDT Plan of Treatment Upcoming Encounters Date Type Department Care Team (Late st Contact Info) Description 08/25/2024 9:00 AM CDT Hospital Encounter [facility] [address] [place], [place] [id number] Health Maintenance Due Date Last Done Comments PAP SMEAR 1997 HPV VACCINE (1 - 3-dose series) 2012 HEPATITIS C SCREENING 10/03/2015 DTAP/TDAP/TD VACCINES (1 - Tdap) 2016 HEPATITIS B VACCINE (1 of 3 - 19+ 3-dose series) 2016 COVID-19 VACCINE ( season) 2023 06/13/2021, 01/26/2021, 01/05/2021 DEPRESSION SCREENING 04/01/2024 OB-ONE HOUR GLUCOSE 06/25/2024 12/19/2016 OB-TDAP CURRENT 07/02/2024 OB-GROUP B STREP SCREEN 08/27/2024 07/12/2022, 12/19 INFLUENZA VACCINE (Season Ended) 2024 03/15/2022, 01/23/2021, 12/20/2016, Additional history exists ZOSTER VACCINE (1 of 2) 10/08/2047 HIV SCREENING Completed 07/27/2015 HIB VACCINE Aged Out No longer eligi ble based on patient's age to complete this topic MENINGOCOCCAL (Group B) VACCINE SHARED DECISION-MAKING Aged Out No longer eligible based on patient's age to complete this topic MENINGOCOCCAL GROUPS A/C/Y/W VACCINE Aged Out No longer eligible based on patient's age to complete this topic PNEUMOCOCCAL VACCINE Aged Out No long er eligible based on patient's age to complete this topic Respiratory Syncytial Virus (RSV) Vaccine Pt: or over 60 yrs (No Doses Required) Completed Procedures Procedure Name Priority Date/Time Associated Diagnosis Comments SONOGRAM - COMPLETE Routine 07/22/2024 12:53 PM CDT History of delivery, currently in second trimester (HCC) History of severe pre-eclampsia History of placental abruption Late care affecting in second trimester (HCC) Marijuana use during (HCC) CULTURE STREP B Routine 07/12/2022 11:21 AM CDT Supervision of high-risk of young multigravida GLUCOSE CHALLENGE Routine 12/19/2016 7:4 7 PM CDT Elevated blood pressure affecting in third trimester, antepartum HIV-1 HIV-2 ANTIBODY + HIV P24 AG PANEL STAT 07/27/2015 10:20 PM CDT from Last 3 Months or Most Recently Relevant to Health Maintenance Results * SONOGRAM - COMPLETE (07/22/2024 12:53 PM CDT) Linked Results Indication ======== Prior at 30 weeks due to severe preeclampsia with placental abruption & IUGR History ====== OB History 3. Para 2 [id number] 1. live 2016. Gest. age 30 w + 5 d. Weight 1,170 g. Sex of child: female. Details: delivery; Severe Pre-E, Abruption, IUGR 2. elective termination 2020 3. elective termination 2021 4. live 2022. Gest. age 38 w + 3 d. Weight 2,790 g. Sex of child: female. Details: Vaginal delivery; Maternal Assessment Physical Exam Height 170 cm, 5 ft 7 in. Weight 65 kg, 143 lb. Initial weight 59 kg, 130 lb. BMI 22.40 kg/m . Initial BMI 20.36 kg/m . Weight gain 6 kg, 13 lb Method ====== Transabdominal ultrasound. View: Sufficient ========= [place] . Number of fetuses: 1 Dating ====== Date Details Gest. age ÁNGEL Stated ÁNGEL 29 w + 6 d 10/01/2024 Previous U/S 06/04/2024 GA, GA 23 w + 0 d 29 w + 6 d 10/01/2024 U/S 07/22/2024 based upon AC, BPD, Femur, HC 29 w + 6 d 10/01/2024 Assigned dating based on ultrasound (GA), selected on 07/22/2024 29 w + 6 d 10/01/2024 General Evaluation Cardiac activity present. FHR 154 bpm. Presentation: cephalic Placenta: Placental site: posterior Umbilical cord: Cord vessels: 3 vessel cord. Insertion site: suboptimal Amniotic fluid: Amount of AF: normal. MVP 3.5 cm. ANA LAURA 10.5 cm. Q1 3.5 cm, Q2 1.4 cm, Q3 3.2 cm, Q4 2.5 cm Biometry BPD 76.9 mm 30w 6d 69% Hadlock HC 275.0 mm 30w 0d 21% Hadlock Cerebellum tr 39.9 mm 97% [place] AC 250.9 mm 29w 2d 28% Hadlock Femur 54.9 mm 29w 0d 14% Hadlock Humerus 50.3 mm 29w 3d 41% Barbie HC / AC 1.10 -/- Hadlock Weight Calculation: EFW 1,383 g 23% Hadlock EFW (lb,oz) 3 lb 1 oz EFW by Hadlock ([id number]) appropriate Growth Overview Exam date GA BPD (mm) HC (mm) AC (mm) FL (mm) HL (mm) EFW (g) 07/22/2024 29w 6d 76.9 69% 275 21% 250.9 28% 54.9 14% 50.3 41% 1383 23% Anatomy The following structures appear normal: Head / Neck Cranium. Lateral ventricles. Choroid plexus. Midline falx. Cavum septi pellucidi. Cerebellum. Cisterna magna. Thalami. Face Lips. Profile. Nose. Orbits. Heart / Thorax 4-chamber view. RVOT view. LVOT view. 3-vessel view. 6-pyyywu-fulyqhe view. Situs. Aortic arch view. Bicaval view. Interventricular septum. Great vessels. Right lung. Left lung. Diaphragm. Abdomen Stomach. Kidneys. Bladder. Bowel. Spine Cervical spine. Thoracic spine. Lumbar spine. Sacral spine. Extremities / Skeleton Arms. Hands. Legs. Feet. The following structures could not be adequately visualized: Heart / Thorax Ductal arch view. Abdomen Cord insertion. Genitals. Maternal Structures Right Ovary Not visualized Appearance: Adnexa appears normal Left Ovary Not visualized Appearance: Adnexa appears normal Impression ========= * [place] IUP at 29 weeks of gestation by stated EDC from LMP & early U/S Late care, first U/S at 23 weeks * [facility]erred to [facility]etrical [facility]/S & request for consult secondary to: Prior complicated by severe preeclampsia, abruption, IUGR & PTB * Today's ultrasound (U/S) findings: Living magaña intrauterine fetus growth is in the normal range Amniotic fluid volume appears normal Placenta is posterior & clear of the internal cervical os Comprehensive anatomic survey appears normal, but is incomplete COUNSELING & RECOMMENDATIONS (PLEASE SEE FULL CONSULT IN EPIC) * We discussed her history & management options * In my best medical opinion, I would advise: Smoking (cannabis) risks were discussed & cessation was strongly encouraged Low-dose aspirin preeclampsia prophylaxis starting at 12 weeks in future pregnancies Follow-up U/S for growth & AFV in 4-6 weeks testing (e.g. NST+BPP or NST+ANA LAURA) if later indicated Delivery planning (timing, mode, location): too early to determine at present Follow-up ======== U/S in 4-6 weeks Coding ====== Procedures 65071: US Preg Uterus Detailed [facility] [employer] PACS Anatomical Region Laterality Modality Other 07/22/2024 12:5 3 PM CDT R He Magdaleno MD [facility] ORDERABLES Edited Result - Final * CULTURE STREP B (07/12/2022 11:21 AM CDT) Culture Strep B Negative for beta-hemolytic Streptococcus Group B JEFFRY 07/15/2022 7:04 PM CDT [facility] Microbiology MISCELLANEOUS SAMPLES / Unknown Collection / Unknown 07/12/2022 11:21 AM CDT 07/12/2022 12:14 PM CDT Sonya Rodriguez Gordon FIELD CONTACT TECHNICIAN-HOME HOSPICE AIDE LAB - MICROBIOLOGY ORDER EVELYN Final Result [facility]OLOG[facility] [address] [place] [address], [facility] [phone] * GLUCOSE CHALLENGE (12/19/2016 7:47 PM CDT) [facility] Glucose Challenge 94 64 - 140 mg/dL 12/19/2016 8:14 PM CDT [facility] Glucose Challenge Time 12/19/2016 8:14 PM CDT [facility] Blood BLOOD SPECIMEN / Unknown Venipuncture / Unknown 12/19/2016 7:47 PM CDT 12/19/2016 7:59 PM CDT Gael Kelley MD LAB - CHEMISTRY ORDERABLES Final Result Performing Organization Address City/[facility]/ZIP Co de Phone Number [facility] [address] [place] [address] * HIV-1 HIV-2 ANTIBODY + HIV P24 AG PANEL (07/27/2015 10:20 PM CDT) [facility] HIV1/2 Ab + P24 Ag Non Reactive Non Reactive 07/27/2015 11:47 PM CDT [facility] Blood BLOOD SPECIMEN / Unknown Lab Venipuncture / Unknown 07/27/2015 10:20 PM CDT 07/27/2015 11:14 PM CDT Narrative [facility] - 07/27/2015 11:47 PM CDT No Laboratory evidence of HIV infection. Janiya Chaudhry FIELD CONTACT TECHNICIAN-HOME HOSPICE AIDE LAB - CHEMISTRY ORDER EVELYN Final Result [facility] [address] [place] [address] from Last 3 Months or Most Recently Relevant to Health Maintenance Insurance Advance Directives * Full Code (Latest Code Status on File) Date Activated Date Inactivated Comments 07/13/2022 8:00 AM 07/14/2022 8:52 PM * Full Code Date Activated Date Inactivated Comments 12/27/2016 4:53 PM 12/31/2016 7:22 PM * Full Code Date Activated Date Inactivated Comments 12/27/2016 3:34 PM 12/27/2016 4:53 PM * Full Code Date Activated Date Inactivated Comments 12/27/2016 2:44 PM 12/27/2016 3:34 PM * Full Code Date Activated Date Inactivated Comments 12/21/2016 11:17 AM 12/21/2016 2:36 PM Care Teams Floor Representative Relationship Specialty Start Date End Date Joesph Hallman MD [address] [place] [address] PCP - General Pediatrics 07/27/15
--- OUTSIDE RECORDS SUMMARY | 2024-08-21 10:26 | XMS_ITS | Data Portability ---
Author Organization [facility] Address [address] [place] [address] Assessment Encounter Date Assessment Date Assessment LastModified by Organization Details LastModified Time 07/23/2024 07/23/2024 Patient is ___weeks . Discussed plan. Not available 07/23/2024 11:50:52 08/14/2024 08/14/2024 Patient is _33__weeks . Discussed plan. Not available 08/14/2024 12:34:18 08/21/2024 08/21/2024 Patient is _34__weeks . Discussed plan. [email or web address] Not available 08/21/2024 11:05:28 Plan of Treatment [...] available OB ROUTINE 2024 09:30A M Raya Sanabria, CNM Not available Not available Not available NST 2024 09:30A M NST SCHEDULE Not available Not available Not available OB ROUTINE 2024 10:15A M Raya Sanabria, CNM Not available Not available Not available Lab None recorded . Referral None recorded . Procedures None recorded . Surgeries None recorded . Imaging non-stre ss test 2024 025 [email or web address] [place], [facility] [address], [place], [address], 08/15/2024 11:16:58 Medication Orders None recorded . Patient TargetsNo targets recorded. Patient InstructionsNo instructions recorded. Reason for Referral None Reported. Results Created Date Observation Date Name Description Value Unit Range Abnormal Flag Note LastModifiedBy Organization Detail LastModifiedTime 07/10/19 25 07/09/2024 HEMOG LOBIN (HGB) HGB 10.8 g/dL (based on docume nted legal sex) 11.6-1 5.4 low Not Available [facility] (Lab) [address], [place], [address], 07/10/2024 19:21:16 07/10/19 25 07/09/2024 HEMAT OCRIT (HCT) HCT 33.6 % (based on docume nted legal sex) 34.0-4 5.0 low Not Available [facility] (Lab) [address], [place], [address], 07/10/2024 19:21:16 07/10/19 25 07/09/2024 HIV 1/2 ANTIG EN/AN TIBOD Y, REFLE X CONFI RMATI ON HIV antigen/anti body Nonrea ctive nonrea ctive HIV-1 antig en and HIV-1 /HIV- 2 antib odies were not detec javy. No labor atory evide nce of HIV infec tion. Not Available [facility] (Lab) [address], [place], [address], 07/10/2024 19:21:17 07/10/19 25 07/09/2024 GTT - GESTA ANUJA L SCREE N, ACOG OB glucose, 1 hour screen 76 mg/dL 70-135 Not Available [facility] (Lab) [address], [place], [address], 07/10/2024 19:21:17 07/10/19 25 07/09/2024 RPR SCREE N, REFLE X TITER /CONF IRMAT ION RPR qualitative Nonrea ctive nonrea ctive Not Available [facility] (Lab) [address], [place], [address], 07/10/2024 19:21:18 08/15/19 25 08/14/2024 CT/GC AND TRICH OMONA S VAGIN RISA (RRNA ), URINE chlamydia trachomatis, PCR Negati ve negati ve Not Available [facility] (Lab) [address], [place], [address], 08/15/2024 12:02:42 08/15/19 25 08/14/2024 CT/GC AND TRICH OMONA S VAGIN RISA (RRNA ), URINE neisseria gonorrhoeae, PCR Negati ve negati ve Not Available [facility] (Lab) [address] [facility], [place], [address], 08/15/2024 12:02:42 08/15/19 25 08/14/2024 CT/GC AND TRICH OMONA S VAGIN RISA (RRNA ), URINE trichomonas vaginalis ribosomal RNA (rrna) Negati ve negati ve Not Available [facility] (Lab) [address], [place], [address], 08/15/2024 12:02:42 07/23/19 25 07/22/2024 US, obste tric, follo w-up No observ ation record ed. [email or web address] [facility] [address] [place] [address], [address], 07/27/2024 22:58:59 07/23/19 25 07/22/2024 US, obste tric, follo w-up No observ ation record ed. [email or web address] [facility] [address], [place], [address], 07/27/2024 23:04:26 08/15/19 25 08/14/2024 non-s tress test No observ ation record ed. [email or web address] [place] [address], [place], [address], 08/14/2024 19:49:02 08/15/19 25 08/14/2024 non-s tress test No observ ation record ed. [email or web address] [place] [address], [place], [address], 08/14/2024 19:51:03 Result Notes None recorded. Problems Name Problem SNOMED Code Status Onset Date Resolution Date Notes Provider Name and Address Organization Details Recorded Time Pregnanc y 90857488 Active 2024 Mayt Miller [facility], [facility] 13:04:05 Deliveri es by [id number] Active wants tolac, has had successfu l Oleg Magdaleno MD [address], [place], [address], [facility] 16:53:21 Vaginal delivery followin g previous section 174369661 Active SECOND - 28 weeks - 2# 10ozc Oleg Magdaleno MD [address], [place], [address], [facility] 13:41:19 Prematur e delivery 707350205 Active PLACENTAL ABRUPTION Oleg Magdaleno MD [address], [place], [address], [facility] 03/06/202 5 13:33:04 Pre-ecla mpsia 816881366 Active SEVERE scheduled 07/22 Level II US and consult Wendy Sanchez [facility], [facility] 5 18:20:28 Placenta l abruptio n 745309369 Active Oleg Magdaleno MD [address], [place], [address], [facility] 5 13:34:13 Bleeding 032453521 Active VAGINAL BLEEDING AT THE TIME OF ABRUTION Oleg Magdaleno MD [address], [place], [address], [facility] 5 13:35:26 Chlamydi al infectio n 510274345 Active Iwona carbone, [facility] 5 16:05:46 Infectio n by Trichomo melinda 35101758 Active Iwona Cobb [facility], [facility] 5 16:06:25 Placenta l finding 693740318 Active mildy complex focus within Placenta - [facility] referral faxed scheduled 07/22 1:00PM Level II US and consult MFM DID NOT FIND ANY PROBLEM WITH THE PLACENTA. Oleg Magdaleno MD [address], [place], [address], [facility] 5 12:11:40 Anemia 612742306 Active slo fe daily Wendy Sanchez null, [facility] 5 11:47:56 Anemia 263728678 Active slo fe daily Wendy Sanchez null, [facility] 5 11:47:56 Herpes simplex 99665946 Active 2024 Iwona carbone, [facility] 5 11:33:31 History of chlamydi al infectio n 055535785 Active 202406/04/2024 chlamydia Iwona Cobb [facility], [facility] 5 11:33:55 Past pregnanc y history of prematur e delivery 478445314 Active 2024 Iwona Cobb [facility], [facility] 5 11:37:28 Past pregnanc y history of pre-ecla mpsia 56265769238 9100 Active 2024 Iwonavishnu Cobb [facility], [facility] 5 11:37:41 Problem Notes None recorded. Procedures Surgical History Date Name Laterality Status Provider Name and Address Organization Details Recorded Time 4 Date of Last Pap Smear completed Maty Miller [facility] 06/04/2024 13:08:26 7 Caesarean Section completed Maty Miller [facility] 06/04/2024 13:13:56 Imaging Results Imaging Date Name Status LastModified by Organiz ation Details LastModified Time 07/22/2024 US, obstetric, follow-up completed [address] [facility] [place], [address], 07/27/2024 22:58:59 07/22/2024 US, obstetric, follow-up completed [address] [facility] [address], [address], 07/27/2024 23:04:26 08/14/2024 non-stress test completed [email or web address] [place] [address], [place], [address], 08/14/2024 19:49:02 08/14/2024 non-stress test completed [email or web address] [place] [address], [place], [address], 08/14/2024 19:51:03 Procedure Notes None recorded. Medical Equipment None [...] Available Not Available Vitals Date Recorded Body weight Systolic blood pressure Diastolic blood pressure Provider Name and Address Organization Details Last Updated DateTime 07/23/2024 00381.7089 1 g 116 mm[Hg] 77 mm[Hg] Maty Miller [facility] 07/23/2024 11:52:51 Date Recorded Body height Body mass index (BMI) Body weight Body height Body mass index (BMI) Body weight Systolic blood pressure Diastolic blood pressure Systolic blood pressure Diastolic blood pressure Provider Name and Address Organization Details Last Updated DateTime 5 170.18 cm 23 kg/m2 03370.0 8 g 170.18 cm 23 kg/m2 35566.0 8 g 129 mm[Hg] 85 mm[Hg] 129 mm[Hg] 85 mm[Hg] Iwona Cobb [facility] 19:47:31 Date Recorded Body height Body mass index (BMI) Body weight Systolic blood pressure Diastolic blood pressure Systolic blood pressure Diastolic blood pressure Provider Name and Address Organization Details Last Updated DateTime 170.18 cm 24 kg/m2 58715.6 3 g 152 mm[Hg] 107 mm[Hg] 150 mm[Hg] 100 mm[Hg] Iwona Cobb [facility] 10:58:57 Social History Question Answer Notes LastModified by Organizat ion Details LastModified Time Tobacco Smoking Status Current Every Day Smoker Maty Paul carbone, [facility] 06/04/2024 13:12:01 If You Are , What Was Your Level Of Alcohol Consumption Prior To ? Occasional [email or web address] Information not available 08/14/2024 Are You Blind [...] Or The Highest Degree You Have Received? 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 No Information not available 06/04/2024 What is your exercise level? Moderate Information not available 06/04/2024 Mental Status Question Answer Note LastModified by Organization D etails LastModified Time Do you feel stressed (tense, restless, nervous, or anxious, or unable to sleep at night)? [id number] Information not available 06/04/2024 Family History Relationship [...] SNOMED-CT Code Diagnosis ICD10 Code Diagnosis Note [id number] Oleg Magdaleno MD [place] [address] [address] 06/04/2024 11:00:58 06/04/2024 13:29:45 screening for malformation 417443275 Z36.3 Z36.87 O09.30 Z3A.23 [id number] Oleg Magdaleno MD [place] [address],[place] [address] 06/04/2024 11:02:24 06/05/2024 08:04:22 Routine care 131614199 Z34.90 [id number] Oleg Magdaleno MD [place] [address] [place] [address] 06/18/2024 15:06:30 06/18/2024 16:03:52 screening 176488438 Z36.2 O09.32 Z3A.25 [id number] Oleg Magdaleno MD [place] [address],[place] [address] 06/18/2024 15:06:52 06/18/2024 17:02:54 Routine care 598914631 Z34.90 [id number] Oleg Magdaleno MD [place] [address],[place] [address] 07/09/2024 15:19:35 07/09/2024 17:01:58 Routine care 678166476 Z34.90 [id number] Oleg Magdaleno MD [place] [address],[place] [address] 07/23/2024 10:56:14 07/23/2024 12:25:22 care status 557141412 Z34.83 [id number] [facility] [address],[place] [address] 08/14/2024 11:17:07 08/14/2024 12:36:29 Gestation period, 33 weeks 75369590 Z3A.33 cont pnv Past pregn steve history of pre-eclampsia 2518589610 91372 O09.299 [id number] Raya Sanabria CNM [place] [address],[place] [address] 08/14/2024 19:46:30 08/15/2024 11:16:58 Past history of premature delivery 444658122 Z87.51 [id number] [facility] [address],[place] [address] 08/21/2024 10:21:56 08/21/2024 11:24:02 Gestation period, 34 weeks 57579052 Z3A.34 Increased blood pressure 38099841 R03.0 Health Concerns Section Related Observation LastModified by Organization Detai ls LastModified Time None Recorded Concern Status LastModified by Organization Details LastModified Time None Recorded Advance Directives Directive None Recorded Payers Encounter Date Sequence Insurance Name Policy Number Policy Carlson Covered Member ID Carlson Member ID Guarantor Name 07/23/2024 1 [place] [employer] [place] [employer] Esdras Saucedo [id number] Esdras Saucedo 08/14/2024 1 [facility] ON OR AFTER 09/29/20 (MEDICAID REPLACEMENT - HMO) Esdras Saucedo [id number] Esdras Saucedo 08/14/2024 1 [facility] ON OR AFTER 20 (MEDICAID REPLACEMENT - HMO) Esdras Saucedo [id number] Esdras Saucedo 08/21/2024 1 [facility] - [facility] ON OR AFTER 20 (MEDICAID REPLACEMENT - HMO) Esdras Saucedo [id number] Esdras Saucedo OBGyn Episode Ob Episode Information Episode Created Date Number of Fetuses Patient Bloodtype Patient rh Status Prepregnancy Weight lbs Domestic Partner Domestic Partner Phone Father Name Monitoring Specialist Status 06/05/19 25 1 O Positive Javi OPEN Fetus Data First Name Last Name Admitted to NICU Weight (g) Sex Living Outcome Pediatric Complications Fetus ID Race Codes Race Delivery Type [id number] Problems Problem Notes pt scheduled [facility] 08/25/24 0900 Level II US Problem Name Start Date End Date Resolution Snomed Code Not e Bleeding 487024199 VAGINAL BL EEDING AT THE TIME OF ABRUTION Placental abruption 105809718 Deliveries by 04 wants tolac, has had successful Anemia 745852696 slo fe goran ly Placental finding 746445093 mi ldy complex focus within Placenta - [facility] referral faxed scheduled 07/22 1:00PM Level II US and consult MFM DID NOT FIND ANY PROBLEM WITH THE PLACENTA. Pre-eclampsia 187908659 SEVERE scheduled 07/22 Level II US and consult Chlamydial infection 723122880 Infection by Trichomonas [id number] Premature delivery 347566186 P LACENTAL ABRUPTION Vaginal delivery following previous section 036878391 SECOND PREG MANDI - 28 weeks - [...] Type Weight in lbs Pre/Post Dialysis Refused 136.832107536836 BP Diastolic BP Location Tested BP Systolic [...] Type Weight in lbs Pre/Post Dialysis Refused 133.289046491955 BP Diastolic BP Location Tested BP Systolic [...] Type Weight in lbs Pre/Post Dialysis Refused 138.894245266278 BP Diastolic BP Location Tested BP Systolic [...] Type Weight in lbs Pre/Post Dialysis Refused 143.746177717024 BP Diastolic BP Location Tested BP Systolic [...] Weight in lbs Pre/Post Dialysis Refused Weight 147.430344939524 BP Diastolic BP Location Tested BP Systolic [...] Weight in lbs Pre/Post Dialysis Refused Weight 147.907907480612 BP Diastolic BP Location Tested BP Systolic [...] Weight in lbs Pre/Post Dialysis Refused Weight 153.257579592369 BP Diastolic BP Location Tested BP Systolic [...] Domestic Partner Domestic Partner Phone Father Name Monitoring Specialist Status 06/05/19 25 1 CLOSED Fetus Data First Name Last Name Admitted to NICU Weight (g) Sex Living Outcome Pediatric Complications Fetus ID Race Codes Race Delivery Type 1190.67 9 F Prematur e 69532 Primary Luis Daniel Calculation Initial Luis Daniel Date [...] Complications Tubal Sterilization Discharge Date Comments 7 30 true preeclam p mary Discharge Information Feeding Method Contraceptive Method Maternal HG B and HCT Levels Ob Episode Information Episode Created Date Number of Fetuses Patient Bloodtype Patient rh Status Prepregnancy Weight lbs Domestic Partner Domestic Partner Phone Father Name Monitoring Specialist Status 06/05/19 25 1 CLOSED Fetus Data First Name Last Name Admitted to NICU Weight (g) Sex Living Outcome Pediatric Complications Fetus ID Race Codes Race Delivery Type 2863.07 2704 F Full Term 21248 Vaginal Delivery Luis Daniel Calculation Initial Luis Daniel Date [...] Complications Tubal Sterilization Discharge Date Comments 3 39 Discharge Information Feeding Method Contraceptive Method Maternal HG B and HCT Levels
[2024-08-21 10:43] VITALS: BP 135/94; PULSE 77
[2024-08-21 11:00] VITALS: BP 141/97; PULSE 75
[2024-08-21 11:02] LABS: Basophils Absolute Auto 0.1 K/mm3 (0.0-0.1); Basophils Percent Auto 0.6 % (0.2-1.2); Eosinophils Absolute Auto 0.3 K/mm3 (0-0.3); Eosinophils Percent Auto 3.3 % (0-4.4); Hematocrit 35.7 % (37.0-47.0); Hemoglobin 11.1 g/dL (12.0-15.0); Immature Granulocyte Absolute 0.08 K/mm3 (0.00-0.031); Immature Granulocyte Percent A 0.9 % (0-0.5); Lymphocytes Absolute Auto 2.02 K/mm3 (0.9-3.2); Lymphocytes Percent Auto 21.6 % (18.3-44.2); Mean Corpuscular HGB Conc 31.1 g/dl (32-36); Mean Corpuscular Hemoglobin 28.2 pg (26-34); Mean Corpuscular Volume 90.8 fl (80-100); Mean Platelet Volume 12.7 fl (7.4-10.4); Monocytes Absolute Auto 0.8 K/mm3 (0.1-0.6); Neutrophils Absolute Auto 6.1 K/mm3 (1.3-6.7); Neutrophils Percent Auto 65.6 % (45.5-73.1); Platelet Count Result 133 k/mm3 (150-375); Red Blood Count 3.93 M/mm3 (4.2-5.4); Red Cell Distribution Width 14.4 % (11.5-14.5); White Blood Count 9.4 K/mm3 (4.5-10.0)
[2024-08-21 11:06] LABS: Add Urine Microscopic? YES; Appearance Urine Clear (Clear); Bacteria Urine None Seen /hpf; Bilirubin Urine Negative (Negative); Blood Urine Negative (Negative); Color Urine Yellow (Yellow); Glucose Urine UA Negative (Negative); Ketones Urine Negative (Negative); Leukocyte Esterase Ur Trace LEU/UL (Negative); Nitrate Urine Negative (Negative); Non Pathogenic Casts 0-2; Protein Urine Negative (Negative); RBC Urine 0-2 /hpf (0-2); Specific Grav Ur 1.019 (1.001-1.035); Squamous Epithelial Cell Urine None Seen /hpf (Few); Urobilinogen Urine 0.2 mg/dL (<2.0); WBC Urine 0-5 /hpf (0-3)
[2024-08-21 11:08] LABS: Creatinine Urine 86.1 mg/dL; Total Protein Urine Random 8 mg/dL; Ur Ttl Prot Creatinine Ratio 0.09 mg/mg (0-0.20)
[2024-08-21 11:10] VITALS: BMI 24.0
[2024-08-21 11:15] VITALS: BP 140/100; PULSE 80
[2024-08-21 11:19] LABS: Alanine Aminotransferase 20 U/L (6-35); Albumin Level 3.1 g/dL (3.5-5.1); Alkaline Phosphatase 149 U/L (38-126); Anion Gap 4 mmol/L (4-12); Aspartate Amino Transferase 29 U/L (14-36); Bilirubin,Total 0.4 mg/dL (0.2-1.3); Blood Urea Nitrogen 8 mg/dL (7-17); Calcium 8.2 mg/dL (8.4-10.2); Carbon Dioxide 25 mmol/L (22-30); Chloride 106 mmol/L (98-107); Estimated CRCL calculation 134 ml/min; Estimated Glomerular Filt Rate > 60; Glucose 64 mg/dL (65-110); Potassium 3.6 mmol/L (3.4-5.0); Sodium 135 mmol/L (137-145); Uric Acid 3.8 mg/dL (2.5-7.5)
[2024-08-21] MEDS: NIFEdipine 30 MG TAB.ER.24 PO (11:19)
[2024-08-21 11:30] VITALS: BP 144/99; PULSE 82
[2024-08-21 11:45] VITALS: BP 140/92; PULSE 76
[2024-08-21 12:00] VITALS: BP 140/92; PULSE 76
== END 2024-08-21 11:53 | disposition home or self-care (01) ==
LOC: ANHOBOP 10:22 → ANHOBPP 10:25
PROVIDERS: PCP Hospitalist; Visit Provider Advanced Practice Midwife
DX: O13.9 Gestational [pregnancy-induced] hypertension without significant proteinuria, unspecified trimester (principal); Z3A.00 Weeks of gestation of pregnancy not specified
CPT/HCPCS: 36415; 59025; 80053; 81001; 82570; 84156; 84550; 85025; 99199; A9270

== ENCOUNTER 2024-08-30 13:45 | Inpatient (IN) | payer OTHER, SELFPAY ==
[2024-08-30] VITALS (61 sets, daily range): BP systolic 124–171; BP diastolic 75–130; PULSE 75–115; RESP 16–18; TEMP 36.5–36.6; O2SAT 93–100
--- NOTE | ~2024-08-30 | US_ITS ---
EXAMINATION: US OB limited DATE: 08/30/2024 14:47 INDICATION: Placenta check. Vaginal bleeding during third trimester . TECHNIQUE: Real-time ultrasound of the pelvis was performed. The interpreting radiologist was not pre sent for the study. COMPARISON: None. FINDINGS: There is a single living fetus in vertex presentation. The placenta is posterior fundal and not low- lying. There is a small region of anechoic fluid deep to a thin membrane along the right inferior mar gin of the anterior portion of the placenta. The region of fluid measures 4.0 x 2.8 x 1.2 cm. The flu id appears to track over as opposed to deep to the margin of the placenta which would favor a small r egion of chorioamnionic separation over subchorionic hematoma. heart rate is 160 beats per ayanna te (bpm). The amniotic fluid volume is subjectively normal. IMPRESSION: 1. Single living fetus in vertex presentation with heart rate of 160 bpm. 2. 4.0 x 2.8 x 1.2 cm anechoic fluid collection along the right anteroinferior margin of the posterio r fundal placenta which appears to track along the superficial as opposed to the deep margin of the p lacental edge and would favor small regions chorioamnionic separation over subchorionic hematoma. Reviewed, dictated and finalized at location A. IMPRESSION: 1. Single living fetus in vertex presentation with heart rate of 160 bpm . 2. 4.0 x 2.8 x 1.2 cm anechoic fluid collection along the right anteroinferior margin of the posterior fundal placenta which appears to track along the superf icial as opposed to the deep margin of the placental edge and would favor small regions chorioamnionic separation over subchorionic hematoma.
[2024-08-30 15:19] LABS: Basophils Absolute Auto 0.1 K/mm3 (0.0-0.1); Basophils Percent Auto 0.6 % (0.2-1.2); Eosinophils Absolute Auto 0.3 K/mm3 (0-0.3); Eosinophils Percent Auto 2.7 % (0-4.4); Hematocrit 35.2 % (37.0-47.0); Hemoglobin 11.1 g/dL (12.0-15.0); Immature Granulocyte Absolute 0.09 K/mm3 (0.00-0.031); Immature Granulocyte Percent A 0.9 % (0-0.5); Lymphocytes Absolute Auto 2.23 K/mm3 (0.9-3.2); Lymphocytes Percent Auto 21.1 % (18.3-44.2); Mean Corpuscular HGB Conc 31.5 g/dl (32-36); Mean Corpuscular Hemoglobin 28.3 pg (26-34); Mean Corpuscular Volume 89.8 fl (80-100); Mean Platelet Volume 12.8 fl (7.4-10.4); Monocytes Absolute Auto 0.8 K/mm3 (0.1-0.6); Monocytes Percent Auto 7.8 % (2.6-8.5); Neutrophils Absolute Auto 7.1 K/mm3 (1.3-6.7); Neutrophils Percent Auto 66.9 % (45.5-73.1); Platelet Count Result 147 k/mm3 (150-375); Red Blood Count 3.92 M/mm3 (4.2-5.4); White Blood Count 10.6 K/mm3 (4.5-10.0)
[2024-08-30] MEDS: OXYTOCIN 30 UNITS/NS 500 ML 30 UNITS/500 ML BAG 999 UNITS IV CONT (15:50)
[2024-08-30 15:58] LABS: Syphilis IgG/IgM Antibody Negative (Negative)
--- NOTE | 2024-08-30 16:04 | WPDHPUPDATE1 ---
History and Physical Update Update Date/Time: 08/30/24 16:04 28-year-old female, multiparity, 35 weeks, presented with hemorrhage and low back pain. Ultrasound was performed. Possible abruption. Patient was in labor. Quickly became complete after rupture membranes. Pushed a short time and delivered. Mother and baby are well. History and Physical has been reviewed, including an updated exam of the patient. There are NO changes in the patient's condition. Risks, benefits, and alternatives have been discussed and questions answered. Patient agrees to proceed with procedure.
--- NOTE | 2024-08-30 16:08 | PM.OBPRVD ---
OB - Vaginal Delivery Note Procedure Delivery date: 08/31/24 Delivery monitor: External FHT and External Uterine Route of delivery: Episiotomy description: None Laceration Description: None Specimen: Yes Quantitative Blood Loss (ml): 300 Anesthesia type: None Disposition: Floor Complications: No immediate complications
[2024-08-30 16:11] LABS: HIV 1/2 Ab P24 Ag Result Negative (Negative)
[2024-08-30] MEDS: fentaNYL CITRATE INJ (*CRX) 100 MCG/2 ML VIAL 50 MCG IV PUSH (16:20)
[2024-08-30] MEDS: OXYTOCIN 30 UNITS/NS 500 ML 30 UNITS/500 ML BAG 125 UNITS IV CONT (16:45)
--- NOTE | 2024-08-30 17:23 | LDADM ---
This patient, Esdras Saucedo, was admitted to Labor/Delivery/Recovery 106 on 08/30/24 at 13:45. Plans for labor, pain management and were discussed with patient. Patient/family oriented to hospital policies and general routines including ID bracelet, bed and alarms, visiting hours, pain management, procedures, bathroom and other care routines, personal items, smoking policy, room service/diet and guest tray routines, infant security routines, and visiting hours. Patient/Family are encouraged to report perceived risks to care and to ask questions if they do not understand what they are told or what they should do. See OBIX for further documentation.
[2024-08-30] MEDS: IBUPROFEN 600 MG TABLET PO (18:57)
[2024-08-30] MEDS: ONDANSETRON INJ 4 MG/2 ML VIAL IV PUSH (18:57)
[2024-08-30] MEDS: BENZOCAINE 20% AER SPR (*SP) 56 GM CAN 1 SPRAY TOPICAL (18:58)
[2024-08-30] MEDS: WITCH HAZEL 40 PADS 1 PAD TOPICAL (18:59)
--- NOTE | 2024-08-30 19:14 | OBPPTRN ---
Patient transferred to post room #283 via wheelchair. Support person present. Oriented to unit, room, information board, rooming in, admission packet and security measures. Patient verbalizes understanding.
[2024-08-30] MEDS: METOCLOPRAMIDE HCL INJ 10 MG/2 ML VIAL IV PUSH (20:00)
[2024-08-31 03:56] LABS: Hematocrit 32.5 % (37.0-47.0); Hemoglobin 10.1 g/dL (12.0-15.0)
[2024-08-31] MEDS: IBUPROFEN 600 MG TABLET PO ×2 (07:23→17:56)
[2024-08-31 07:25] VITALS: PULSE 83; RESP 18; O2SAT 100
[2024-08-31 07:50] VITALS: BP 127/86; PULSE 83; RESP 18; TEMP 36.3; O2SAT 100
--- NOTE | 2024-08-31 08:28 | PM.OBPNVD ---
OB - PN: Subj Subjective Date/time seen: 08/31/24 08:28 Patient comments: no complaints, pain well controlled, incisional pain, tolerating diet and flatus present OB - PN: Obj Data Labs 08/31/24 03:09 Labs: Laboratory Results - last 24 hr 08/30/24 08/31/24 15:15 03:09 WBC 10.6 H RBC 3.92 L Hgb 11.1 L 10.1 L Hct 35.2 L 32.5 L MCV 89.8 MCH 28.3 MCHC 31.5 L RDW 15.0 H Plt Count 147 L MPV 12.8 H Immature Gran % (Auto) 0.9 H Neut % (Auto) 66.9 Lymph % (Auto) 21.1 Frederick % (Auto) 7.8 Eos % (Auto) 2.7 Baso % (Auto) 0.6 Lymph # (Auto) 2.23 Frederick # (Auto) 0.8 H Eos # (Auto) 0.3 Baso # (Auto) 0.1 Abs Immat Gran (auto) 0.09 H Absolute Neuts (auto) 7.1 H Absolute Nucleated RBC 0.000 Nucleated RBC % 0.0 Syphilis IgG/IgM Ab Negative HIV 1&2 Ab/P24 Ag 4thGn Negative Blood Type O Positive Antibody Screen Negative Imaging Radiologist's impression: Impressions Obstetrics Ultrasound 08/30/24 15:07 IMPRESSION: 1. Single living fetus in vertex presentation with heart rate of 160 bpm. 2. 4.0 x 2.8 x 1.2 cm anechoic fluid collection along the right anteroinferior margin of the posterior fundal placenta which appears to track along the superficial as opposed to the deep margin of the placental edge and would favor small regions chorioamnionic separation over subchorionic hematoma. OB - PN A/P Plan day: 1 Plan: routine care Comments: No problems, routine care Time Spent With Patient Time: Total time spent is greater than 50% in coordination of care (as documented) at patient's floor/unit and/or counseling patient: Exam Const: General: comfortable, no acute distress and alert Resp: Effort & Inspection: normal respiratory effort Auscultation: no crackles, no rales and no rhonchi Cardio: Rate: regular rate Heart sounds: no click, no murmurs and no rubs GI: Inspection: non-distended GI Palp: No Tenderness to palpation present (GI) Auscultation: normal bowel sounds Other: Incision - CDI Extrem: General: normal to inspection, no pedal edema and no calf tenderness
[2024-08-31] MEDS: valACYclovir HCL 500 MG TABLET PO (08:36)
[2024-08-31] MEDS: NIFEdipine 30 MG TAB.ER.24 PO (08:36)
--- NOTE | 2024-08-31 09:53 | S_PTH ---
PATIENT: Esdras Saucedo LOC: ANHOB2 U#:[id number] AGE/SX: 28/F ROOM: 283 RE08/30/[address]: Oleg Magdaleno MD : 1995 BED: 00 DIS: 09/01/2024 SPEC #: [id number] RECD: 08/31/24 10:32 STATUS: LUIS REQ #: [id number] SANCHEZ: 08/31/24 09:[address]: Oleg Magdaleno DEPT: [facility] Surgical RECD BY: Angelica Carmona ENTERED: 08/31/24 10:32 SP TYPE: Surgical OTHR DR: Lee Ann WigginsMD Tissues: A - Placenta Procedures: Hematoxylin and Eosin Stain Gross and Microscopic Level 5
[2024-08-31 12:45] VITALS: BP 115/78; PULSE 83; RESP 18; TEMP 37; O2SAT 100
[2024-08-31 18:45] VITALS: BP 122/79; PULSE 96; RESP 18; TEMP 36.9; O2SAT 100
[2024-08-31] MEDS: ACETAMINOPHEN 325 MG TABLET 650 MG PO (21:53)
--- NOTE | 2024-08-31 23:57 | PC.NURSE ---
Around 2300, the patient called out requesting formula. Mireya Taylor RN went to the room to bring formula and the patient stated that she already had formula and forgot. At this time, Mireya left the room. A minte later, Mireya heard a yell coming from the room. She went back to the room and asked if the parents were okay. They stated they were fine but they appeared to be arguing. This RN was notified and entered the room to let mother know the baby needed a weight check when she was finished feeding. When this RN entered the room, the dad was arguing with the mother and the mother stated then you can get out of my room. They appeared to calm down. This RN told the patient to call out if she needed help. This RN waited outside the room to listen for further arguing. When this RN entered the room next, the mother was in bed covered up with the lights off and the father was holding the baby. This RN asked the mother if she was okay and if she was comfortable with the father staying in the room. The mother stated that she was fine and the father could stay. This RN took the baby to the nursery for an assessment and weight check and the father came to watch through the nursery windows. Mother was still in bed when this RN returned baby and father appears to have calmed down at this time. This RN told mother to call this RN if anything changes or she needs assistance.
[2024-09-01] MEDS: IBUPROFEN 600 MG TABLET PO ×2 (04:40→18:30)
--- NOTE | 2024-09-01 07:33 | P.PNOB_ITS ---
OB - PN: Subj Subjective Date/time seen: 09/01/24 07:33 Patient comments: no complaints, pain well controlled and tolerating diet OB - PN: Obj Data Labs 08/31/24 03:09 OB - PN A/P Plan day: 2 Plan: routine care and discharge home Time Spent With Patient Time: Total time spent is greater than 50% in coordination of care (as documented) at patient's floor/unit and/or counseling patient: Exam 2 Const: General: comfortable and no acute distress Resp: Effort & Inspection: normal respiratory effort Auscultation: no rales, no rhonchi and no wheezes Cardio: Rate: regular rate Heart sounds: no click, no murmurs and no rubs GI: GI Palp: Yes Soft to palpation and No Tenderness to palpation present (GI) Auscultation: normal bowel sounds Extrem: General: normal to inspection, no pedal edema and no calf tenderness
--- NOTE | 2024-09-01 07:33 | PM.OBDSVD ---
DS: Admitting Diagnosis Discharge Date 09/01/24 Admitting Diagnosis term DS: Discharge Diagnosis Discharge Diagnosis (1) delivery: Code(s): O60.10X0 - labor with delivery, unspecified trimester, not applicable or unspecified Status: Acute OB - DS: Summary OB Procedures : None OB Procedures Intrapartum: Spontaneous Vag Delivery OB Procedures: : None Peripartum Data Laceration Description: None Episiotomy description: None Time Spent with Patient Time attestation: Total time spent providing and/or coordinating discharge services: DS: Data Data Completed and Pending Pending studies at discharge: Pending at discharge 08/31/24 09:53 Surgical [PTH] Routine Discharge Plan Discharge Discharging Clinician: Oleg Magdaleno Patient Disposition: Home Activity: pelvic rest Diet: regular Patient Instructions: Antibiotic Form Patient Language: Romansh Stand Alone Forms: General Discharge Information Follow-up/Referrals: Oleg Magdaleno MD [Physician] - Discharge Medications: Continued PNV #[id number] 30 mg iron-10 mg iron-1 mg capsule 1 cap PO DAILY valacyclovir 500 mg tablet 500 mg PO DAILY Discontinued nifedipine [Procardia XL] 30 mg tablet extended release 24hr 30 mg PO DAILY Date of admission: 08/30/24 13:45 Primary Care Provider: CathyLee Ann Admitting Provider: Oleg Magdaleno Attending physician on admission: Oleg Magdaleno Condition: Stable
[2024-09-01 07:50] VITALS: BP 129/94; PULSE 81; RESP 18; TEMP 36.8; O2SAT 100
[2024-09-01] MEDS: MULTIVIT/MIN/PREN/FOL AC/IRON TABLET 1 TAB PO (08:40)
[2024-09-01] MEDS: valACYclovir HCL 500 MG TABLET PO (08:40)
[2024-09-01] MEDS: NIFEdipine 30 MG TAB.ER.24 PO (08:40)
[2024-09-01] MEDS: ACETAMINOPHEN 325 MG TABLET 650 MG PO (18:30)
== END 2024-09-01 18:30 | disposition home or self-care (01) | DRG 560 ==
LOC: ANHLDR 15:14 → ANHOBPP 15:14 → ANHLDR 15:14 → ANHOB2 19:16
PROVIDERS: Advanced Practice Midwife; Admitting Provider Obstetrics & Gynecology; PCP Hospitalist; Visit Provider Obstetrics & Gynecology
DX: O34.219 Maternal care for unspecified type scar from previous cesarean delivery (principal); O45.93 Premature separation of placenta, unspecified, third trimester; O62.3 Precipitate labor; O69.81X0 Labor and delivery complicated by cord around neck, without compression, not applicable or unspecified; Z3A.35 35 weeks gestation of pregnancy; Z37.0 Single live birth
CPT/HCPCS: 36415; 76815; 85014; 85018; 85025; 86593; 86703; 86850; 86900; 86901; 88307; A9270; G0432; J2405; J2590; J2765; J3010

== ENCOUNTER 2024-09-11 17:05 | Observation (INO) | payer OTHER, SELFPAY ==
[2024-09-11] VITALS (56 sets, daily range): BP systolic 123–183; BP diastolic 71–117; PULSE 25–91; RESP 14–18; TEMP 36.6–37.2; O2SAT 80–100; BMI 22.1
[2024-09-11 16:10] LABS: Basophils Absolute Auto 0.1 K/mm3 (0.0-0.1); Basophils Percent Auto 1.1 % (0.2-1.2); Eosinophils Absolute Auto 0.3 K/mm3 (0-0.3); Eosinophils Percent Auto 6.1 % (0-4.4); Hematocrit 39.5 % (37.0-47.0); Hemoglobin 12.2 g/dL (12.0-15.0); Immature Granulocyte Absolute 0.02 K/mm3 (0.00-0.031); Immature Granulocyte Percent A 0.4 % (0-0.5); Lymphocytes Absolute Auto 2.01 K/mm3 (0.9-3.2); Lymphocytes Percent Auto 35.9 % (18.3-44.2); Mean Corpuscular HGB Conc 30.9 g/dl (32-36); Mean Corpuscular Hemoglobin 27.2 pg (26-34); Mean Corpuscular Volume 88.2 fl (80-100); Mean Platelet Volume 11.7 fl (7.4-10.4); Monocytes Absolute Auto 0.3 K/mm3 (0.1-0.6); Monocytes Percent Auto 6.1 % (2.6-8.5); Neutrophils Absolute Auto 2.8 K/mm3 (1.3-6.7); Neutrophils Percent Auto 50.4 % (45.5-73.1); Platelet Count Result 243 k/mm3 (150-375); Red Blood Count 4.48 M/mm3 (4.2-5.4); Red Cell Distribution Width 13.9 % (11.5-14.5); White Blood Count 5.6 K/mm3 (4.5-10.0)
[2024-09-11 16:21] LABS: Alanine Aminotransferase 21 U/L (6-35); Albumin Level 3.7 g/dL (3.5-5.1); Alkaline Phosphatase 103 U/L (38-126); Anion Gap 4 mmol/L (4-12); Aspartate Amino Transferase 32 U/L (14-36); Bilirubin,Total 0.6 mg/dL (0.2-1.3); Blood Urea Nitrogen 9 mg/dL (7-17); Calcium 8.5 mg/dL (8.4-10.2); Carbon Dioxide 25 mmol/L (22-30); Chloride 107 mmol/L (98-107); Estimated Glomerular Filt Rate > 60; Glucose 88 mg/dL (65-110); Potassium 3.8 mmol/L (3.4-5.0); Sodium 136 mmol/L (137-145); Total Protein 6.9 g/dL (6.3-8.2); Total Protein Urine Random 11 mg/dL; Ur Ttl Prot Creatinine Ratio 0.18 mg/mg (0-0.20)
[2024-09-11 16:27] LABS: Add Urine Microscopic? YES; Appearance Urine Clear (Clear); Bacteria Urine None Seen /hpf; Bilirubin Urine Negative (Negative); Blood Urine Negative (Negative); Color Urine Yellow (Yellow); Glucose Urine UA Negative (Negative); Ketones Urine Negative (Negative); Leukocyte Esterase Ur 2+ LEU/UL (Negative); Need Manual Microscopic Reviewed; Nitrate Urine Negative (Negative); Non Pathogenic Casts 0-2; Protein Urine Negative (Negative); RBC Urine 0-2 /hpf (0-2); Specific Grav Ur 1.011 (1.001-1.035); Squamous Epithelial Cell Urine None Seen /hpf (Few); Urobilinogen Urine 0.2 mg/dL (<2.0); WBC Urine 0-5 /hpf (0-3); pH Urine 8.5 (5.0-9.0)
[2024-09-11] MEDS: LABETALOL HCL INJ 100 MG/20 ML VIAL 20 MG IV PUSH (16:53)
[2024-09-11] MEDS: LACTATED RINGERS 1,000 ML 75 ML IV CONT (16:54)
[2024-09-11] MEDS: MAGNESIUM SULF 4 GM/WATER100ML 4 GM/100 ML BAG IVPB (16:58)
[2024-09-11] MEDS: MAGNESIUM SULF 20GM/WATER500ML 500 ML 50 MG IV CONT (17:33)
--- NOTE | 2024-09-11 18:15 | PC.NURSE ---
1628--Reported labs and BP's to Dr. Taylor. Orders received.
[2024-09-12] VITALS (184 sets, daily range): BP systolic 114–154; BP diastolic 64–112; PULSE 59–130; RESP 14–18; TEMP 36.4–36.8; O2SAT 89–100
[2024-09-12] MEDS: MAGNESIUM SULF 20GM/WATER500ML 500 ML 50 MG IV CONT ×2 (03:29→13:54)
[2024-09-12] MEDS: LACTATED RINGERS 1,000 ML 75 ML IV CONT (03:32)
[2024-09-12] MEDS: ACETAMINOPHEN 325 MG TABLET 650 MG PO (08:05)
--- NOTE | 2024-09-12 08:51 | P.HP_ITS ---
H&P: HPI History of Present Illness Date/Time: 09/12/24 08:51 Chief Complaint: elevated blood pressures Narrative: Patient is a 28 year old s/p on 08/31 who presents from the office for elevated blood pressures. Her was complicated by a history of preeclampsia in her prior , as well as placental abruption and delivery with this . She was in the office for BP check and was found to be in the 160s/110s. She denies symptoms of preeclampsia aside from mild headache. Denies vision changes, chest pain, dyspnea, RUQ pain or epigastric pain. She was previously on procardia XL 30 daily which was d/c'd . She took one dose of her Procardia XL yesterday without improvement in her BP. After presenting to L&D, BP was 170s-180s/110s. She was given labetalol 20mg IV and started on magnesium sulfate for seizure prevention. Labwork was wnl. Overnight, she has tolerated the magnesium well. Her blood pressures are mild range, highest 140s/100s. Review of Systems Review of Systems: All systems reviewed & are unremarkable except as noted in HPI and below PMFSH Social History Social History Smoking status: Light tobacco smoker Tobacco type: cigars Second hand tobacco smoke exposure: Yes Do You Feel Safe in your Home?: Yes Lack of Transportation: No Lack of Food: Never True Current Housing: I Have Housing Concerned About Future Housing: No Difficulty Paying Gas/Electric Bills: No Difficulty Paying for Meds: No Currently Unemployed: No Education: High School Diploma/GED Difficulty w/ Childcare or Family Care: No Meds Home Medications and Allergies Home Medications ?Medication ?Instructions ?Recorded ?Confirmed ?Type vitamin#30 30 mg iron-10 1 cap PO DAILY 08/21/24 08/21/24 History mg iron-folic acid 1 mg-omg3 capsule valacyclovir 500 mg tablet 500 mg PO DAILY 08/21/24 08/30/24 History Allergies Allergy/AdvReac Type Severity Reaction Status Date / Time No Known Allergies Allergy Verified 08/30/24 17:06 Vital Signs Vital Signs - 24 hr 09/11/24 16:07 09/11/24 16:16 09/11/24 16:45 Temperature Pulse Rate 62 62 59 L Respiratory Rate Blood Pressure 177/106 H 175/107 H 183/117 H Pulse Oximetry 09/11/24 16:52 09/11/24 16:53 09/11/24 16:57 Temperature Pulse Rate 60 Respiratory Rate Blood Pressure Pulse Oximetry 100 100 09/11/24 17:00 09/11/24 17:00 09/11/24 17:05 Temperature 99.0 F Pulse Rate 63 60 Respiratory Rate 14 Blood Pressure 175/112 H 175/112 H Pulse Oximetry 100 100 100 09/11/24 17:10 09/11/24 17:15 09/11/24 17:20 Temperature Pulse Rate Respiratory Rate Blood Pressure Pulse Oximetry 100 100 100 09/11/24 17:23 09/11/24 17:25 09/11/24 17:30 Temperature Pulse Rate 75 73 Respiratory Rate Blood Pressure 150/98 H 141/93 H Pulse Oximetry 100 99 09/11/24 17:32 09/11/24 17:37 09/11/24 17:42 Temperature Pulse Rate Respiratory Rate Blood Pressure Pulse Oximetry 100 100 100 09/11/24 17:45 09/11/24 17:47 09/11/24 17:52 Temperature Pulse Rate 74 Respiratory Rate Blood Pressure 142/91 H Pulse Oximetry 100 100 09/11/24 17:57 09/11/24 18:00 09/11/24 18:02 Temperature Pulse Rate 73 Respiratory Rate Blood Pressure 149/103 H Pulse Oximetry 100 100 09/11/24 18:07 09/11/24 18:15 09/11/24 18:20 Temperature Pulse Rate Respiratory Rate Blood Pressure Pulse Oximetry 100 100 100 09/11/24 18:25 09/11/24 18:30 09/11/24 18:35 Temperature Pulse Rate 83 Respiratory Rate Blood Pressure 147/98 H Pulse Oximetry 100 100 100 09/11/24 18:40 09/11/24 18:45 09/11/24 18:50 Temperature Pulse Rate 78 Respiratory Rate Blood Pressure 140/94 H Pulse Oximetry 100 100 100 09/11/24 18:55 09/11/24 19:00 09/11/24 19:05 Temperature Pulse Rate 76 Respiratory Rate Blood Pressure 138/87 Pulse Oximetry 100 98 100 09/11/24 19:10 09/11/24 19:15 09/11/24 19:20 Temperature Pulse Rate 79 Respiratory Rate Blood Pressure 138/88 Pulse Oximetry 100 100 100 09/11/24 19:21 09/11/24 19:21 09/11/24 19:30 Temperature Pulse Rate 83 Respiratory Rate Blood Pressure 137/89 Pulse Oximetry 80 L 89 L 09/11/24 19:45 09/11/24 19:57 09/11/24 20:30 Temperature 97.9 F Pulse Rate 79 91 Respiratory Rate 18 Blood Pressure 145/98 H 138/95 H Pulse Oximetry 09/11/24 20:45 09/11/24 21:00 09/11/24 21:15 Temperature Pulse Rate 84 84 86 Respiratory Rate Blood Pressure 134/91 H 140/89 134/95 H Pulse Oximetry 09/11/24 21:40 09/11/24 21:46 09/11/24 22:01 Temperature Pulse Rate 87 78 87 Respiratory Rate Blood Pressure 130/73 125/71 129/82 Pulse Oximetry 09/11/24 22:16 09/11/24 22:31 09/11/24 22:45 Temperature Pulse Rate 81 85 88 Respiratory Rate Blood Pressure 128/75 132/76 126/79 Pulse Oximetry 09/11/24 23:00 09/11/24 23:16 09/11/24 23:31 Temperature Pulse Rate 82 85 87 Respiratory Rate Blood Pressure 133/96 H 136/83 123/75 Pulse Oximetry 09/11/24 23:46 09/12/24 00:00 09/12/24 00:00 Temperature 98.0 F Pulse Rate 89 80 80 Respiratory Rate 18 Blood Pressure 128/72 133/85 133/85 Pulse Oximetry 09/12/24 00:15 09/12/24 00:30 09/12/24 00:45 Temperature Pulse Rate 78 85 76 Respiratory Rate Blood Pressure 134/88 132/89 135/99 H Pulse Oximetry 09/12/24 01:00 09/12/24 01:15 09/12/24 01:35 Temperature Pulse Rate 76 92 Respiratory Rate Blood Pressure 126/86 123/85 Pulse Oximetry 100 09/12/24 01:40 09/12/24 01:45 09/12/24 01:50 Temperature Pulse Rate 81 Respiratory Rate Blood Pressure 129/104 H Pulse Oximetry 99 97 99 09/12/24 01:55 09/12/24 02:00 09/12/24 02:05 Temperature Pulse Rate 82 Respiratory Rate Blood Pressure 126/98 H Pulse Oximetry 99 98 99 09/12/24 02:10 09/12/24 02:15 09/12/24 02:20 Temperature Pulse Rate 82 Respiratory Rate Blood Pressure 134/88 Pulse Oximetry 99 98 98 09/12/24 02:25 09/12/24 02:30 09/12/24 02:31 Temperature Pulse Rate 82 Respiratory Rate Blood Pressure 128/78 Pulse Oximetry 99 97 09/12/24 02:35 09/12/24 02:39 09/12/24 02:40 Temperature Pulse Rate Respiratory Rate Blood Pressure Pulse Oximetry 99 98 98 09/12/24 02:45 09/12/24 02:46 09/12/24 02:50 Temperature Pulse Rate 87 Respiratory Rate Blood Pressure 138/81 Pulse Oximetry 100 100 09/12/24 02:55 09/12/24 03:00 09/12/24 03:05 Temperature Pulse Rate 77 Respiratory Rate Blood Pressure 121/94 H Pulse Oximetry 100 100 100 09/12/24 03:10 09/12/24 03:15 09/12/24 03:20 Temperature Pulse Rate Respiratory Rate Blood Pressure Pulse Oximetry 99 99 99 09/12/24 03:25 09/12/24 03:29 09/12/24 03:30 Temperature 97.9 F Pulse Rate 73 Respiratory Rate 16 Blood Pressure 121/78 Pulse Oximetry 100 100 100 09/12/24 03:35 09/12/24 03:40 09/12/24 03:42 Temperature Pulse Rate 73 Respiratory Rate Blood Pressure 121/78 Pulse Oximetry 99 99 09/12/24 03:45 09/12/24 03:50 09/12/24 03:55 Temperature Pulse Rate 73 Respiratory Rate Blood Pressure 144/78 H Pulse Oximetry 98 100 99 09/12/24 04:00 09/12/24 04:05 09/12/24 04:10 Temperature Pulse Rate 78 Respiratory Rate Blood Pressure 122/96 H Pulse Oximetry 98 99 100 09/12/24 04:15 09/12/24 04:16 09/12/24 04:21 Temperature Pulse Rate 78 Respiratory Rate Blood Pressure 134/91 H Pulse Oximetry 100 99 100 09/12/24 04:26 09/12/24 04:31 09/12/24 04:36 Temperature Pulse Rate 78 Respiratory Rate Blood Pressure 135/64 Pulse Oximetry 99 100 100 09/12/24 04:41 09/12/24 04:45 09/12/24 04:50 Temperature Pulse Rate 91 Respiratory Rate Blood Pressure 139/81 Pulse Oximetry 100 100 100 09/12/24 04:59 09/12/24 05:00 09/12/24 05:04 Temperature Pulse Rate 82 Respiratory Rate Blood Pressure 149/98 H Pulse Oximetry 99 100 09/12/24 05:09 09/12/24 05:14 09/12/24 05:15 Temperature Pulse Rate 79 Respiratory Rate Blood Pressure 130/88 Pulse Oximetry 100 100 09/12/24 05:19 09/12/24 05:24 09/12/24 05:29 Temperature Pulse Rate Respiratory Rate Blood Pressure Pulse Oximetry 100 100 100 09/12/24 05:31 09/12/24 05:34 09/12/24 05:39 Temperature Pulse Rate 82 Respiratory Rate Blood Pressure 136/84 Pulse Oximetry 100 98 09/12/24 05:44 09/12/24 05:45 09/12/24 05:49 Temperature Pulse Rate 77 Respiratory Rate Blood Pressure 127/83 Pulse Oximetry 99 99 09/12/24 05:54 09/12/24 05:59 09/12/24 06:00 Temperature Pulse Rate 79 Respiratory Rate Blood Pressure 132/92 H Pulse Oximetry 99 100 09/12/24 06:04 09/12/24 06:09 09/12/24 06:14 Temperature Pulse Rate Respiratory Rate Blood Pressure Pulse Oximetry 100 98 100 09/12/24 06:15 09/12/24 06:19 09/12/24 06:24 Temperature Pulse Rate 81 Respiratory Rate Blood Pressure 124/94 H Pulse Oximetry 99 99 09/12/24 06:29 09/12/24 06:30 09/12/24 06:34 Temperature Pulse Rate 87 Respiratory Rate Blood Pressure 125/79 Pulse Oximetry 99 99 09/12/24 06:39 09/12/24 06:44 09/12/24 06:46 Temperature Pulse Rate 91 Respiratory Rate Blood Pressure 121/76 Pulse Oximetry 99 99 09/12/24 06:49 09/12/24 06:54 09/12/24 06:59 Temperature Pulse Rate Respiratory Rate Blood Pressure Pulse Oximetry 96 97 98 09/12/24 07:04 09/12/24 07:09 09/12/24 07:20 Temperature Pulse Rate Respiratory Rate Blood Pressure Pulse Oximetry 98 100 100 09/12/24 07:25 09/12/24 07:30 09/12/24 07:35 Temperature Pulse Rate 83 85 Respiratory Rate Blood Pressure 129/95 H 140/95 H Pulse Oximetry 100 98 100 09/12/24 07:40 09/12/24 07:45 09/12/24 07:50 Temperature Pulse Rate 84 Respiratory Rate Blood Pressure 141/104 H Pulse Oximetry 100 100 99 09/12/24 07:55 09/12/24 07:59 09/12/24 08:01 Temperature Pulse Rate 97 Respiratory Rate Blood Pressure 137/90 Pulse Oximetry 99 98 09/12/24 08:04 09/12/24 08:10 09/12/24 08:15 Temperature Pulse Rate 90 Respiratory Rate Blood Pressure 114/100 H Pulse Oximetry 100 89 L 99 09/12/24 08:20 09/12/24 08:25 09/12/24 08:30 Temperature Pulse Rate Respiratory Rate Blood Pressure Pulse Oximetry 99 100 100 09/12/24 08:31 09/12/24 08:35 09/12/24 08:40 Temperature Pulse Rate 88 Respiratory Rate Blood Pressure 139/97 H Pulse Oximetry 100 100 09/12/24 08:45 09/12/24 08:50 Temperature Pulse Rate 86 Respiratory Rate Blood Pressure 154/112 H Pulse Oximetry 100 100 Exam Const: General: comfortable and no acute distress Resp: Effort & Inspection: normal respiratory effort Cardio: Rate: regular rate Skin: General skin exam: normal color Extrem: General: normal to inspection Psych: Mental Status: mental status grossly normal H&P: Results Labs Labs: Short CBC 09/11/24 Range/Units 15:50 WBC 5.6 (4.5-10.0) K/mm3 Hgb 12.2 (12.0-15.0) g/dL Hct 39.5 (37.0-47.0) % Plt Count 243 D (150-375) k/mm3 BMP 09/11/24 15:50 Sodium 136 L Potassium 3.8 Chloride 107 Carbon Dioxide 25 BUN 9 Creatinine 0.79 Glucose 88 Calcium 8.5 Liver Function 09/11/24 Range/Units 15:50 Total Bilirubin 0.6 (0.2-1.3) mg/dL AST 32 (14-36) U/L ALT 21 (6-35) U/L Alkaline Phosphatase 103 (38-126) U/L Albumin 3.7 (3.5-5.1) g/dL Urine 09/11/24 Range/Units 15:50 Urine Color Yellow (Yellow) Urine Appearance Clear (Clear) Urine pH 8.5 (5.0-9.0) Ur Specific [place] 1.011 (1.001-1.035) Urine Protein Negative (Negative) mg/dL Urine Glucose (UA) Negative (Negative) mg/dL Assessment and Plan Assessment and plan (1) Preeclampsia, severe: Code(s): O14.10 - Severe pre-eclampsia, unspecified trimester Status: Acute Assessment and Plan: - severe by: BP - mild headache 04/10 this AM otherwise asymptomatic - BP 170s-180s/110s on admission, now 130s-140s/90s-100s - labs wnl - increase procardia XL to 30 mg BID - continue MgSO4 for 24 hours and monitor BP response - possible d/c home tonight after magnesium if BP remain mild range
[2024-09-12] MEDS: NIFEdipine 30 MG TAB.ER.24 PO (09:34)
--- NOTE | 2024-09-12 10:54 | PC.NURSE ---
Called Dr. Taylor and notified of Procardia 30 mg given at 0934, BP has been 130s/80-90s with one BP 138/100. Order received to complete magnesium infusion and check BP one hour after completion. If BP is controlled at that time pt. is ok to discharge.
--- NOTE | 2024-09-12 14:03 | PC.NURSE ---
Dr. Taylor called and notified of pt. Nausea with vomiting. Notified of Reflexes 1+ unchanged from this morning, urine output adequate, breath sounds clear and respiraitons between 14-16. Orders received to give pt. zofran and continue to monitor.
--- NOTE | 2024-09-12 14:15 | PC.NURSE ---
Went to patient room to administer zofran. Pt. laying back down and no longer feels nauseous. No emesis since the 1st episode of vomiting
--- NOTE | 2024-09-12 18:06 | PC.NURSE ---
Magnesium sulfate infusion stopped at 1700. BP 1 hour later 142/102. Entered pt. room upon seeing BP reading on the monitor and noted pt. to be laying left lateral with her left arm stretched behind her. Requested patient to move her arm and patient moved it between her body and the bed in a lateral position, applying pressure to BP cuff. Took BP again and it resulted 134/101. Switched cuff to Right arm which was on top of the patient and reading was 127/94.
--- NOTE | 2024-09-12 18:14 | PC.NURSE ---
Dr. Taylor called and made aware of BP. Order received to dc patient to home and for script for procardia XL [address] Taylor stated her office would call the pt. to schedule an appointment for sometime next week for a BP check.
--- NOTE | 2024-09-16 03:33 | PM.OBTRLD ---
OB - Triage/Final Diagnosis Visit Information Comments/Additional reasons for admission: I have assessed the risk for this patient, Esdras Saucedo, and determined that she would benefit from observation care. Evaluation Laboratory results: Laboratory Tests 09/11/24 15:50 WBC 5.6 RBC 4.48 Hgb 12.2 Hct 39.5 MCV 88.2 MCH 27.2 MCHC 30.9 L RDW 13.9 Plt Count 243 D MPV 11.7 H Immature Gran % (Auto) 0.4 Neut % (Auto) 50.4 Lymph % (Auto) 35.9 [place] % (Auto) 6.1 Eos % (Auto) 6.1 H Baso % (Auto) 1.1 Lymph # (Auto) 2.01 [place] # (Auto) 0.3 Eos # (Auto) 0.3 Baso # (Auto) 0.1 Abs Immat Gran (auto) 0.02 Absolute Neuts (auto) 2.8 Absolute Nucleated RBC 0.000 Nucleated RBC % 0.0 Sodium 136 L Potassium 3.8 Chloride 107 Carbon Dioxide 25 Anion Gap 4 BUN 9 Creatinine 0.79 Estim Creat Clear Calc Not Reportable Estimated GFR > 60 Glucose 88 Uric Acid 5.0 Calcium 8.5 Total Bilirubin 0.6 AST 32 ALT 21 Alkaline Phosphatase 103 Total Protein 6.9 Albumin 3.7 Urine Color Yellow Urine Appearance Clear Urine pH 8.5 Ur Specific [place] 1.011 Urine Protein Negative Urine Glucose (UA) Negative Urine Ketones Negative Ur Blood (Man) Negative Urine Nitrate Negative Urine Bilirubin Negative Urine Urobilinogen 0.2 Add Ur Microanalysis Reviewed Leukocyte Esterase Rfl 2+ H Urine RBC 0-2 Urine WBC 0-5 Ur Squamous Epith Cells None seen Urine Bacteria None seen Urine Casts 0-2 U Random Total Protein 11 Urine Creatinine 61.0 Protein/Creat Ratio 2 0.18 Final Diagnosis (1) Preeclampsia in period: Code(s): O14.95 - Unspecified pre-eclampsia, complicating the puerperium Status: Acute
== END 2024-09-12 18:39 | disposition home or self-care (01) ==
LOC: ANHOBOP 17:05 → ANHOBPP 17:30
PROVIDERS: Admitting Provider Obstetrics & Gynecology; PCP Hospitalist; Visit Provider Obstetrics & Gynecology
DX: O14.15 Severe pre-eclampsia, complicating the puerperium (principal); O99.335 Smoking (tobacco) complicating the puerperium; F17.290 Nicotine dependence, other tobacco product, uncomplicated; Z79.899 Other long term (current) drug therapy
CPT/HCPCS: 36415; 80053; 81001; 82570; 84156; 84550; 85025; 87086; 96365; 96366; 96374; A9270; G0378; G0379; J3475; J7120

== ENCOUNTER 2024-11-02 12:37 | Emergency (ER) | payer OTHER, SELFPAY ==
[2024-11-02] VITALS (9 sets, daily range): BP systolic 153–185; BP diastolic 88–124; PULSE 65–94; RESP 14–20; TEMP 36.6; O2SAT 100
--- NOTE | 2024-11-02 12:50 | ECG_ITS ---
Test Date: 2024-11-02 14:42:01 Measurements Intervals [place] Rate: 65 P: 2 [place]: 156 QRS: 24 QRSD: 83 T: 5 QT: 415 QTc: 433 Interpretive Statements SINUS RHYTHM CANNOT R/O SEPTAL INFARCT, AGE INDETERMINATE BORDERLINE T WAVE ABNORMALITY- INFERIOR LEADS ABNORMAL ECG No previous ECG available for comparison Electronically Signed On 11-02-2024 15:02:06 CDT by Williams Villarreal D.O.
--- NOTE | 2024-11-02 12:55 | ED_ITS ---
HPI - Recheck/Abnormal Lab/Rx General Chief Complaint: Recheck/Abnormal Lab/Rx <Georges Davies APRN - Last Filed: 11/02/24 12:56> Stated Complaint: htn at post appt 190/150 <Georges Davies APRN - Last Filed: 11/02/24 12:56> Time Seen by Provider: 11/02/24 12:56 <Georges Davies APRN - Last Filed: 11/02/24 12:56> 29-year-old female presents to the ER complaining of high blood pressure . Patient states she is 7 weeks had a history of preeclampsia with this . Patient was prescribed Procardia and said her dose was cut in half however insurance and not cover and she is no longer taking it. Patient reports having a headache. Patient denies any vision changes, chest pain, difficulty breathing, focal weakness, slurred speech, facial droop, dizziness, lightheadedness, nausea, vomiting, seizures, loss of consciousness or any other symptoms. Patient sent from her OB office to come here to start blood pressure medication. Patient reports she has had preeclampsia in the past with her previous as well. GENERAL: Well-appearing, well-nourished, and in no acute distress. HEAD: Normocephalic, atraumatic. CHEST: Clear to auscultation. ?No respiratory distress. HEART: Regular rate and rhythm.? NEURO: ?Alert and oriented x3. Patient screened in triage and initial orders placed.? ?Additional care and disposition to be based upon?diagnostic testing and treatment. <Georges Davies APRN - Last Filed: 11/02/24 12:56> History of Present Illness HPI narrative: 29-year-old with a history of preeclampsia presents to the ER with a complaint of elevated blood pressure. Patient was seen at the doctor's office today was found to have high blood pressure. Patient is supposed to be on Procardia 60 mg ER daily a however she was unable to afford to take the medication, has not taken the medication for last several weeks. She presently has no headache or chest pain no blurred vision or abdominal pain. <Jaun Pineda MD - Last Filed: 11/02/24 16:39> Initial visit (ago): hour(s) (2) <Jaun Pineda MD - Last Filed: 11/02/24 16:39> Symptoms since prior visit: no new symptoms <Jaun Pineda MD - Last Filed: 11/02/24 16:39> Associated symptoms: none <Jaun Pineda MD - Last Filed: 11/02/24 16:39> Related Data Home Medications: Home Medications ?Medication ?Instructions ?Recorded ?Confirmed ?Last Taken ?Type vitamin#30 30 mg iron-10 1 cap PO DAILY 08/21/24 08/21/24 08/21/24 History mg iron-folic acid 1 mg-omg3 capsule valacyclovir 500 mg tablet 500 mg PO DAILY 08/21/24 08/30/24 08/21/24 History <Georges Davies APRN - Last Filed: 11/02/24 12:56> Allergies/Adverse Reactions: Allergies Allergy/AdvReac Type Severity Reaction Status Date / Time No Known Allergies Allergy Verified 11/02/24 12:42 <Georges Davies APRN - Last Filed: 11/02/24 12:56> Review of Systems 2 Review of Systems: All systems reviewed & are unremarkable except as noted in HPI and below <Jaun Pineda MD - Last Filed: 11/02/24 16:39> Constitutional: Constitutional: Reports no additional constitutional complaints <Jaun Pineda MD - Last Filed: 11/02/24 16:39> Eyes: Eyes: Reports no additional eye complaints <Jaun Pineda MD - Last Filed: 11/02/24 16:39> ENT: Reports system reviewed and no additional complaints, except as documented <Jaun Pineda MD - Last Filed: 11/02/24 16:39> Cardiovascular: Cardiovascular: Reports no additional cardiovascular complaints <Jaun Pineda MD - Last Filed: 11/02/24 16:39> Respiratory: Respiratory: Reports no additional respiratory complaints < Jaun Pineda MD - Last Filed: 11/02/24 16:39> Gastrointestinal: Gastrointestinal: Reports no additional gastrointestinal complaints <Jaun Pineda MD - Last Filed: 11/02/24 16:39> Musculoskeletal: Musculoskeletal: Reports no additional musculoskeletal complaints <Jaun Pineda MD - Last Filed: 11/02/24 16:39> Integumentary/Breasts: Skin/Breast: Reports system reviewed and no additional complaints, except as docu <Jaun Pineda MD - Last Filed: 11/02/24 16:39> Neurologic: Reports system reviewed and no additional complaints, except as documented <Jaun Pineda MD - Last Filed: 11/02/24 16:39> PMFSH Social History Social History: Social History Smoking status: Light tobacco smoker Tobacco type: cigars Second hand tobacco smoke exposure: Yes Do You Feel Safe in your Home?: Yes Lack of Transportation: No Lack of Food: Never True Current Housing: I Have Housing Concerned About Future Housing: No Difficulty Paying Gas/Electric Bills: No Difficulty Paying for Meds: No Currently Unemployed: No Education: High School Diploma/GED Difficulty w/ Childcare or Family Care: No <Geroges Davies APRN - Last Filed: 11/02/24 12:56> Exam 2 Narrative: GENERAL: Well-appearing, well-nourished, and in no acute distress. HEAD: Normocephalic, atraumatic. EYES: PERRLA and EOMI. ENT: Nares clear, no rhinorrhea or epistaxis. Mucous membranes moist. NECK: Supple. CHEST: Clear to auscultation. No respiratory distress. HEART: Regular rate and rhythm. No murmur heard. Normal peripheral pulses. ABDOMEN: Soft, nontender, nondistended, normal active bowel sounds. EXTREMITIES: Normal range of motion. No edema. SKIN: Warm, dry, no rash. NEURO: No focal deficits. Alert and oriented x3. PSYCH: Normal mood and affect. <Jaun Pineda MD - Last Filed: 11/02/24 16:39> Course Course Emergency Course: Patient still remains asymptomatic. Did inform her about the lab work, EKG findings. Her pressure has gradually come down with Procardia and IV hydralazine 10 mg . I did discuss with Dr. Magdaleno , pt can be discharged home. facilities coordinator was able to get a prescription for 10 dollars. She is advised to see Dr. Magdaleno in 1 wk . <Jaun Pineda MD - Last Filed: 11/02/24 16:39> Vital Signs Vital signs: Vital Signs Temperature 36.6 C 11/02/24 12:45 Pulse Rate 77 11/02/24 12:45 Respiratory Rate 16 11/02/24 12:45 Blood Pressure 185/124 H 11/02/24 12:45 Pulse Oximetry 100 11/02/24 12:45 Temperature 36.6 C 11/02/24 12:45 Pulse Rate 90 11/02/24 16:01 Respiratory Rate 20 11/02/24 16:01 Blood Pressure 157/109 H 11/02/24 16:01 Pulse Oximetry 100 11/02/24 16:01 <Georges Davies [employer] - Last Filed: 11/02/24 12:56> Vital Signs Temperature 36.6 C 11/02/24 12:45 Pulse Rate 77 11/02/24 12:45 Respiratory Rate 16 11/02/24 12:45 Blood Pressure 185/124 H 11/02/24 12:45 Pulse Oximetry 100 11/02/24 12:45 Temperature 36.6 C 11/02/24 12:45 Pulse Rate 90 11/02/24 16:01 Respiratory Rate 20 11/02/24 16:01 Blood Pressure 157/109 H 11/02/24 16:01 Pulse Oximetry 100 11/02/24 16:01 <Jaun Pineda MD - Last Filed: 11/02/24 16:39> MDM - Recheck/Abnormal Lab/Rx Differential Diagnosis Differential diagnosis: Likely other (Preeclampsia, med noncompliance) <Jaun Pineda MD - Last Filed: 11/02/24 16:39> Medical Records Attestation: I reviewed the patient's medical records. <Jaun Pineda MD - Last Filed: 11/02/24 16:39> Lab Data Attestation: I reviewed the patient's lab results. <Jaun Pineda MD - Last Filed: 11/02/24 16:39> Result diagrams: 11/02/24 13:59 11/02/24 13:59 <Georges Davies APRN - Last Filed: 11/02/24 12:56> Labs: Lab Results 11/02/24 11/02/24 Range/Units 13:59 14:30 WBC 6.1 (4.5-10.0) K/mm3 RBC 4.75 (4.2-5.4) M/mm3 Hgb 12.6 (12.0-15.0) g/dL Hct 40.6 (37.0-47.0) % MCV 85.5 (80-100) fl MCH 26.5 (26-34) pg MCHC 31.0 L (32-36) g/dl RDW 16.4 H (11.5-14.5) % Plt Count 189 (150-375) k/mm3 MPV 13.0 H (7.4-10.4) fl Immature Gran % (Auto) 0.3 (0-0.5) % Neut % (Auto) 44.7 L (45.5-73.1) % Lymph % (Auto) 40.9 (18.3-44.2) % [place] % (Auto) 7.9 (2.6-8.5) % Eos % (Auto) 4.9 H (0-4.4) % Baso % (Auto) 1.3 H (0.2-1.2) % Lymph # (Auto) 2.48 (0.9-3.2) K/mm3 [place] # (Auto) 0.5 (0.1-0.6) K/mm3 Eos # (Auto) 0.3 (0-0.3) K/mm3 Baso # (Auto) 0.1 (0.0-0.1) K/mm3 Abs Immat Gran (auto) 0.02 (0.00-0.031) K/mm3 Absolute Neuts (auto) 2.7 (1.3-6.7) K/mm3 Absolute Nucleated RBC 0.000 (0.0-0.012) K/mm3 Nucleated RBC % 0.0 (0.0-0.2) % PT 13.1 (11.1-14.7) Seconds INR 1.0 APTT 42.0 H (22.3-36.8) Seconds Sodium 137 (137-145) mmol/L Potassium 4.0 (3.4-5.0) mmol/L Chloride 106 (98-107) mmol/L Carbon Dioxide 25 (22-30) mmol/L Anion Gap 6 (4-12) mmol/L BUN 12 (7-17) mg/dL Creatinine 0.68 L (0.7-1.0) mg/dL Estim Creat Clear Calc 104 ml/min Estimated GFR > 60 (59 - ) Glucose 84 (65-110) mg/dL Uric Acid 4.4 (2.5-7.5) mg/dL Calcium 9.0 (8.4-10.2) mg/dL Total Bilirubin 0.7 (0.2-1.3) mg/dL AST 30 (14-36) U/L ALT 21 (6-35) U/L Alkaline Phosphatase 79 (38-126) U/L Total Protein 7.7 (6.3-8.2) g/dL Albumin 4.3 (3.5-5.1) g/dL Urine Color Yellow (Yellow) Urine Appearance Clear (Clear) Urine pH 8.5 (5.0-9.0) Ur Specific [place] 1.017 (1.001-1.035) Urine Protein Negative (Negative) mg/dL Urine Glucose (UA) Negative (Negative) mg/dL Urine Ketones Negative (Negative) mg/dL Ur Blood (Man) 1+ H (Negative) Urine Nitrate Negative (Negative) Urine Bilirubin Negative (Negative) Urine Urobilinogen 0.2 (<2.0) mg/dL Leukocyte Esterase Rfl Negative (Negative) ERIS/UL Urine RBC 0-2 (0-2) /hpf Urine WBC 0-5 (0-3) /hpf Ur Squamous Epith Cells None seen (Few) /hpf Urine Bacteria None seen /hpf Urine Casts 0-2 <Georges Davies, [employer] - Last Filed: 11/02/24 12:56> Lab Results 11/02/24 11/02/24 Range/Units 13:59 14:30 WBC 6.1 (4.5-10.0) K/mm3 RBC 4.75 (4.2-5.4) M/mm3 Hgb 12.6 (12.0-15.0) g/dL Hct 40.6 (37.0-47.0) % MCV 85.5 (80-100) fl MCH 26.5 (26-34) pg MCHC 31.0 L (32-36) g/dl RDW 16.4 H (11.5-14.5) % Plt Count 189 (150-375) k/mm3 MPV 13.0 H (7.4-10.4) fl Immature Gran % (Auto) 0.3 (0-0.5) % Neut % (Auto) 44.7 L (45.5-73.1) % Lymph % (Auto) 40.9 (18.3-44.2) % [place] % (Auto) 7.9 (2.6-8.5) % Eos % (Auto) 4.9 H (0-4.4) % Baso % (Auto) 1.3 H (0.2-1.2) % Lymph # (Auto) 2.48 (0.9-3.2) K/mm3 [place] # (Auto) 0.5 (0.1-0.6) K/mm3 Eos # (Auto) 0.3 (0-0.3) K/mm3 Baso # (Auto) 0.1 (0.0-0.1) K/mm3 Abs Immat Gran (auto) 0.02 (0.00-0.031) K/mm3 Absolute Neuts (auto) 2.7 (1.3-6.7) K/mm3 Absolute Nucleated RBC 0.000 (0.0-0.012) K/mm3 Nucleated RBC % 0.0 (0.0-0.2) % PT 13.1 (11.1-14.7) Seconds INR 1.0 APTT 42.0 H (22.3-36.8) Seconds Sodium 137 (137-145) mmol/L Potassium 4.0 (3.4-5.0) mmol/L Chloride 106 (98-107) mmol/L Carbon Dioxide 25 (22-30) mmol/L Anion Gap 6 (4-12) mmol/L BUN 12 (7-17) mg/dL Creatinine 0.68 L (0.7-1.0) mg/dL Estim Creat Clear Calc 104 ml/min Estimated GFR > 60 (59 - ) Glucose 84 (65-110) mg/dL Uric Acid 4.4 (2.5-7.5) mg/dL Calcium 9.0 (8.4-10.2) mg/dL Total Bilirubin 0.7 (0.2-1.3) mg/dL AST 30 (14-36) U/L ALT 21 (6-35) U/L Alkaline Phosphatase 79 (38-126) U/L Total Protein 7.7 (6.3-8.2) g/dL Albumin 4.3 (3.5-5.1) g/dL Urine Color Yellow (Yellow) Urine Appearance Clear (Clear) Urine pH 8.5 (5.0-9.0) Ur Specific [place] 1.017 (1.001-1.035) Urine Protein Negative (Negative) mg/dL Urine Glucose (UA) Negative (Negative) mg/dL Urine Ketones Negative (Negative) mg/dL Ur Blood (Man) 1+ H (Negative) Urine Nitrate Negative (Negative) Urine Bilirubin Negative (Negative) Urine Urobilinogen 0.2 (<2.0) mg/dL Leukocyte Esterase Rfl Negative (Negative) ERIS/UL Urine RBC 0-2 (0-2) /hpf Urine WBC 0-5 (0-3) /hpf Ur Squamous Epith Cells None seen (Few) /hpf Urine Bacteria None seen /hpf Urine Casts 0-2 <Jaun Pineda MD - Last Filed: 11/02/24 16:39> ECG Data EKG #1: ECG completion date: 11/02/24 <Jaun Pineda MD - Last Filed: 11/02/24 16:39> ECG completion time: 14:42 <Jaun Pineda MD - Last Filed: 11/02/24 16:39> EKG Interpretation: normal rate (65), sinus rhythm, no ectopy, no ST changes and NL axis <Jaun Pineda MD - Last Filed: 11/02/24 16:39> Discharge Plan Discharge Clinical Impression: Preeclampsia in period <Georges Davies APRN - Last Filed: 11/02/24 12:56> Patient Disposition: Home <Georges Davies APRN - Last Filed: 11/02/24 12:56> Condition: Stable <Georges Davies APRN - Last Filed: 11/02/24 12:56> Instructions: Hypertension (ED) <Georges Davies APRN - Last Filed: 11/02/24 12:56> Additional Instructions: Take medication as prescribed., follow-up with Dr. Magdaleno in 1 wk <Georges Davies APRN - Last Filed: 11/02/24 12:56> Patient Language: Yi <Georges Davies APRN - Last Filed: 11/02/24 12:56> Prescriptions: New nifedipine [Procardia XL] 60 mg tablet extended release 24hr 60 mg PO DAILY Qty: 30 0RF No Action PNV #[id number] 30 mg iron-10 mg iron-1 mg capsule 1 cap PO DAILY valacyclovir 500 mg tablet 500 mg PO DAILY nifedipine [Procardia XL] 30 mg tablet extended release 24hr 30 mg PO BID Qty: 60 0RF nifedipine [Procardia XL] 30 mg Tablet Extended Release 24hr 30 mg PO BID Qty: 60 0RF <Georges Davies APRN - Last Filed: 11/02/24 12:56> Follow-up/Referrals: Rosalie,MD Lee Ann [Primary Care Provider] - <Georges Davies APRN - Last Filed: 11/02/24 12:56> Time of Disposition: 16:38 <Georges Davies APRN - Last Filed: 11/02/24 12:56> 16:38 <Jaun Pineda MD - Last Filed: 11/02/24 16:39>
[2024-11-02 14:07] LABS: Hematocrit 40.6 % (37.0-47.0); Hemoglobin 12.6 g/dL (12.0-15.0); Immature Granulocyte Percent A 0.3 % (0-0.5); Lymphocytes Absolute Auto 2.48 K/mm3 (0.9-3.2); Mean Corpuscular HGB Conc 31.0 g/dl (32-36); Mean Corpuscular Hemoglobin 26.5 pg (26-34); Mean Corpuscular Volume 85.5 fl (80-100); Nucleated Red Blood Cells Absolute Auto 0.000 K/mm3 (0.0-0.012); Nucleated Red Blood Cells Perc 0.0 % (0.0-0.2); Platelet Count Result 189 k/mm3 (150-375); Red Blood Count 4.75 M/mm3 (4.2-5.4); White Blood Count 6.1 K/mm3 (4.5-10.0)
[2024-11-02 14:18] LABS: Alanine Aminotransferase 21 U/L (6-35); Albumin Level 4.3 g/dL (3.5-5.1); Alkaline Phosphatase 79 U/L (38-126); Anion Gap 6 mmol/L (4-12); Aspartate Amino Transferase 30 U/L (14-36); Bilirubin,Total 0.7 mg/dL (0.2-1.3); Blood Urea Nitrogen 12 mg/dL (7-17); Calcium 9.0 mg/dL (8.4-10.2); Carbon Dioxide 25 mmol/L (22-30); Chloride 106 mmol/L (98-107); Estimated CRCL calculation 104 ml/min; Estimated Glomerular Filt Rate > 60; Glucose 84 mg/dL (65-110); Potassium 4.0 mmol/L (3.4-5.0); Sodium 137 mmol/L (137-145); Total Protein 7.7 g/dL (6.3-8.2); Uric Acid 4.4 mg/dL (2.5-7.5)
[2024-11-02 14:20] LABS: INR 1.0; Prothrombin Time 13.1 Seconds (11.1-14.7)
[2024-11-02 14:21] LABS: Partial Thromboplastin Time 42.0 Seconds (22.3-36.8)
--- NOTE | 2024-11-02 14:46 | PCCCNOTE ---
Called to the pt's room d/t the pt not taking her Procardia d/t it being too expensive. Educated the pt on Good RX for [employer] coupon for 16.14 and [facility] of 10.00. Pt was agreeable to the Goodrx coupon. Pt was happy with the plan and denied having any further needs.-[email or web address]
[2024-11-02 15:03] LABS: Add Urine Microscopic? YES; Appearance Urine Clear (Clear); Glucose Urine UA Negative (Negative); Leukocyte Esterase Ur Negative LEU/UL (Negative); Nitrate Urine Negative (Negative); Non Pathogenic Casts 0-2; Specific Grav Ur 1.017 (1.001-1.035)
== END 2024-11-02 17:10 | disposition home or self-care (01) ==
PROVIDERS: Emergency Provider Family Medicine; PCP Hospitalist
DX: O14.95 Unspecified pre-eclampsia, complicating the puerperium (principal); T46.5X6A Underdosing of other antihypertensive drugs, initial encounter; Z91.120 Patient's intentional underdosing of medication regimen due to financial hardship; R94.31 Abnormal electrocardiogram [ECG] [EKG]
CPT/HCPCS: 36415; 80053; 81001; 84550; 85025; 85610; 85730; 93005; 96374; 99284; A9270; J0360